=== PATIENT | female | born 1950 | race Caucasian/White ===

== ENCOUNTER 2019-10-10 13:11 | Emergency (ER) | payer MEDICARE, SELFPAY ==
[2019-10-10 13:19] VITALS: BP 144/49; PULSE 61; RESP 20; TEMP 36.4; O2SAT 98
--- NOTE | 2019-10-10 13:24 | ED.FEMALEGU ---
HPI - Female Genitourinary General Chief complaint: Urogenital-Female Stated complaint: UTI SYMPTOMS Time Seen by Provider: 10/10/19 13:24 Source: patient Mode of arrival: wheelchair Limitations: no limitations History of Present Illness HPI Narrative: The pt is a 68 y/o female who presents to the ED c/o UTI symptoms onset 2 weeks ago. Pt states that her urine has been cloudy with an orange color, and has been progressively worsening since onset of symptoms. She notes that she has not had a recent UTI or antibiotics for such. She reports burning urination and chronic lower back pain, but denies urgency, ABD pain, and N/V. MD elicited complaint: other (UTI symptoms) Onset (ago): week(s) (2) Urinary symptoms: Dysuria (Burning urination) Associated symptoms: back pain (Chronic lower) and other (Cloudy urine with an orange color) Related Data Home Medications Medication Instructions Recorded Confirmed Citrical +D 630 mg PO BID 10/10/19 ascorbic acid (vitamin C) [Vitamin 500 mg PO DAILY 10/10/19 C] aspirin [Adult Low Dose Aspirin] 81 mg PO DAILY 10/10/19 atorvastatin 20 mg PO HS 10/10/19 citalopram 20 mg PO DAILY 10/10/19 clonazepam 0.25 mg PO DAILY 10/10/19 dimenhydrinate 50 mg PO BID 10/10/19 gabapentin 100 mg PO TID 10/10/19 lamotrigine 100 mg PO BID 10/10/19 levothyroxine 100 mcg PO DAILY 10/10/19 multivit,dzqrrcv-wbr-gvzfr acd 200 mcg PO BID 10/10/19 [One-A-Day Proactive 65 Plus] oxycodone 7.5 mg PO TID 10/10/19 oxycodone [OxyContin] 15 mg PO Q12H 10/10/19 pregabalin [Lyrica] 150 mg PO TID 10/10/19 propranolol 20 mg PO QPM 10/10/19 topiramate 50 mg PO BID 10/10/19 Allergies Allergy/AdvReac Type Severity Reaction Status Date / Time cefaclor Allergy Mild Hives Verified 10/10/19 13:28 Penicillins Allergy Mild Rash Verified 10/10/19 13:28 Review of Systems Review of Systems: All systems reviewed & are unremarkable except as noted in HPI and below Gastrointestinal: Gastrointestinal: Denies abdominal pain, Denies nausea and Denies vomiting Genitourinary: Genitourinary: Reports dysuria (Burning urination), Denies urinary urgency and Reports other (Cloudy urine with an orange color) Musculoskeletal: Musculoskeletal: Reports back pain (Chronic lower) COUNT INCLUDES THE [facility] Past Medical History Medical History (Updated 10/10/19 @ 15:13 by Gwen Ybarra MD) Anxiety Arthritis Bipolar disorder Bunion Cataract Chronic back pain Chronic coccygeal pain Degenerative joint disease Depression HLD (hyperlipidemia) HTN (hypertension) Hypothyroidism IDDM (insulin dependent diabetes mellitus) Peripheral neuropathy Pneumonia Tremors of nervous system UTI (urinary tract infection) Surgical History Surgical History (Updated 10/10/19 @ 13:37 by Oscar Venegas) H/O adenoidectomy H/O Spinal surgery H/O: hysterectomy History of appendectomy History of bunionectomy Hx of tonsillectomy Social History Social History (Updated 10/10/19 @ 13:37 by Oscar Venegas) Smoking status: Former smoker Smoking end date: 09/30/16 Exam Narrative: Exam Narrative: GENERAL: Well-appearing, well-nourished, and in no acute distress. HEAD: Normocephalic, atraumatic EYES: PERRLA and EOMI, conjunctiva clear without discharge THROAT:Mucous membranes moist, Oropharynx normal without erythema, exudate, peritonsillar swelling or fluctuance NECK: Supple, without lymphadenopathy or mass RESPIRATORY: No respiratory distress, Airway patent, Respirations non-labored, Clear to auscultation without rales, rhonchi or wheeze HEART: Regular rate and rhythm. No murmur heard. Normal peripheral pulses. ABDOMEN: Soft, nontender, nondistended, normal active bowel sounds. No masses. No rebound or guarding, No organomegaly. EXTREMITIES: No edema, normal strength with full range of motion. SKIN: Warm, dry, normal color without rash NEURO: Alert and oriented x3. CN 2-12 grossly intact. No focal deficits. PSYCH: Normal mood and
[2019-10-10 14:31] LABS: Add Urine Microscopic? YES; Appearance Urine Cloudy (Clear); Bacteria Urine 3+ /hpf; Bilirubin Urine Negative (Negative); Blood Urine 2+ (Negative); Color Urine Yellow (Yellow); Glucose Urine UA Negative (Negative); Ketones Urine Trace mg/dL (Negative); Leukocyte Esterase Ur 2+ LEU/UL (Negative); Mucus Urine Rare /lpf; Nitrate Urine Negative (Negative); Protein Urine 1+ mg/dL (Negative); RBC Urine >75 /hpf (0-2); Specific Grav Ur 1.027 (1.001-1.035); Squamous Epithelial Cell Urine Rare /hpf (Few); Urobilinogen Urine Negative mg/dL (<2.0); WBC Urine >75 /hpf
[2019-10-10 15:35] VITALS: BP 132/80; PULSE 60; RESP 20; O2SAT 100
== END 2019-10-10 15:42 | disposition home or self-care (01) ==
PROVIDERS: Emergency Provider General Practice
DX: N39.0 Urinary tract infection, site not specified (principal); M19.90 Unspecified osteoarthritis, unspecified site; E78.5 Hyperlipidemia, unspecified; I10 Essential (primary) hypertension; E03.9 Hypothyroidism, unspecified; E11.42 Type 2 diabetes mellitus with diabetic polyneuropathy; Z87.891 Personal history of nicotine dependence; H26.9 Unspecified cataract; F41.9 Anxiety disorder, unspecified; F31.9 Bipolar disorder, unspecified
CPT/HCPCS: 81001; 87077; 87086; 87088; 87186; 99283

== ENCOUNTER → 2020-03-10 12:49 | Outpatient (CLI) | payer MEDICARE, SELFPAY ==
--- NOTE | ~2020-03-10 | CT_ITS ---
EXAMINATION:CT lung screening DATE: 03/10/2020 13:28 INDICATION: Personal history of tobacco dependence. Current smoker with 50 pack year history. TECHNIQUE: Computed tomography (CT) of the chest was performed without intravenous contrast. Automate d exposure control and iterative reconstruction technique were employed. The dose-length product (DLP ) was 123.37 mGy-cm. COMPARISON: Cervical spine CT 06/06/2010 FINDINGS: There is moderate emphysema. Calcified pulmonary nodules and calcified hilar and mediastina l lymph nodes are consistent with old granulomatous disease. There is a 2 mm nodule in right upper lo be. There is a 4 mm nodule in left upper lobe. There is a 4 mm nodule in left upper lobe. No pleural effusion. The heart size is normal. No pericardial effusion. There are epidural electrodes in the spi ne. There is mild thoracic spondylosis. IMPRESSION: 1. Lung-RADS category 2: Benign appearance or behavior. Continue annual screening with noncontrast lo w-dose chest CT in 12 months. Reviewed, dictated and finalized at location B. IMPRESSION: 1. Lung-RADS category 2: Benign appearance or behavior. Continue annual screeni ng with noncontrast low-dose chest CT in 12 months.
== END ==
PROVIDERS: Visit Provider Internal Medicine
DX: Z87.891 Personal history of nicotine dependence (principal)
CPT/HCPCS: G0297

== ENCOUNTER 2020-10-04 13:41 | Inpatient (IN) | payer MEDICARE, SELFPAY ==
[2020-10-04] VITALS (53 sets, daily range): BP systolic 117–172; BP diastolic 46–145; PULSE 61–91; RESP 10–189; TEMP 36.1–36.3; O2SAT 63–100; BMI 27.3
--- NOTE | ~2020-10-04 | XR_ITS ---
EXAMINATION: XR chest 2V EXAM DATE: 10/04/2020 14:39 INDICATION: Mid chest pain. TECHNIQUE: Frontal and lateral projections of the chest obtained and reviewed. Comparison is made to prior examination from . FINDINGS: Moderate chronic hyperinflation. The lungs are clear. There are no pleural effusions. Th e cardiomediastinal silhouette is within normal limits. There is no pneumothorax suspected. Mild domitila ny degenerative changes. Spine stimulator leads with tips at mid thoracic level. IMPRESSION: 1. No acute cardiopulmonary findings. 2. Hyperinflation. Reviewed, dictated and finalized at location B. ULAR OFFICER
--- NOTE | ~2020-10-04 | CT_ITS ---
EXAMINATION: CTA chest PE protocol DATE: 10/04/2020 17:39 FLAMER AFTER LASTING INDICATION: Shortness of breath. Elevated d-dimer. TECHNIQUE: Computed tomographic angiography (CTA) of the chest was performed with 100 mL Omnipaque-35 0 intravenous contrast. The dose-length product was 436.54 mGy-cm. Maximum intensity projection 3D-re constructions of the aorta and other arteries were constructed by the technologist on a separate work station. Automated exposure control and iterative reconstruction technique were employed. COMPARISON: CT dated 03/10/2020 FINDINGS: Heart size is normal. No thoracic lymphadenopathy. Study is technically adequate without ev idence for pulmonary embolism. There is attenuation of the pulmonary arteries in the right upper lobe due to emphysema. There is severe emphysema with upper lobe preference, right greater than left. No significant pleural or pericardial effusion. There is bibasilar dependent atelectasis. Stable 4 mm le ft upper lobe nodule, image 18. There is apical pleural thickening/scarring. No new pulmonary nodules or masses. There is mild thoracic spondylosis. IMPRESSION: 1. No evidence for pulmonary embolism. 2: Severe emphysema. Stable small pulmonary nodules, likely benign. Follow-up low dose CT chest in 12 months recommended. Reviewed, dictated and finalized at location A. ER AFTER LASTING IMPRESSION: 1. No evidence for pulmonary embolism. 2: Severe emphysema. Stable small pulmonary nodules, likely benign. Follow-up l ow dose CT chest in 12 months recommended.
--- NOTE | 2020-10-04 13:43 | ECG_ITS ---
Measurements Intervals [place] Rate: 86 P: 77 GA: 152 QRS: -11 QRSD: 90 T: 50 QT: 345 QTc: 413 Interpretive Statements SINUS RHYTHM POSSIBLE LEFT ATRIAL ENLARGEMENT BASELINE ARTIFACT- I, II, III, AVR, AVL BORDERLINE ECG Electronically Signed On 10-04-2020 13:56:25 TELECOMMUNICATION EQUIPMENT REPAIRER by Saad Coates D.O.
[2020-10-04 14:01] LABS: Basophils Percent Auto 0.2 % (0.2-1.2); Eosinophils Absolute Auto 0.8 K/mm3 (0-0.3); Eosinophils Percent Auto 8.3 % (0-4.4); Hematocrit 39.1 % (37.0-47.0); Hemoglobin 12.1 g/dL (12.0-15.0); Immature Granulocyte Absolute 0.05 K/mm3 (0.00-0.031); Immature Granulocyte Percent A 0.5 % (0-0.5); Lymphocytes Absolute Auto 0.94 K/mm3 (0.9-3.2); Lymphocytes Percent Auto 9.6 % (18.3-44.2); Mean Corpuscular HGB Conc 30.9 g/dl (32-36); Mean Corpuscular Hemoglobin 32.2 pg (26-34); Mean Platelet Volume 10.2 fl (7.4-10.4); Monocytes Absolute Auto 0.6 K/mm3 (0.1-0.6); Monocytes Percent Auto 6.2 % (2.6-8.5); Neutrophils Absolute Auto 7.3 K/mm3 (1.3-6.7); Neutrophils Percent Auto 75.2 % (45.5-73.1); Platelet Count Result 136 k/mm3 (150-375); Red Blood Count 3.76 M/mm3 (4.2-5.4); Red Cell Distribution Width 13.2 % (11.5-14.5); White Blood Count 9.8 K/mm3 (4.5-10.0)
[2020-10-04 14:10] LABS: Anion Gap 6 mmol/L (8-16); Blood Urea Nitrogen 21 mg/dL (7-17); Calcium 10.9 mg/dL (8.4-10.2); Carbon Dioxide 27 mmol/L (22-30); Chloride 108 mmol/L (98-107); Estimated CRCL calculation 44 ml/min; Estimated Glomerular Filt Rate 55; Glucose 167 mg/dL (65-105); Potassium 4.1 mmol/L (3.4-5.0); Sodium 141 mmol/L (137-145)
[2020-10-04 14:11] LABS: INR 0.9; Prothrombin Time 12.8 Seconds (11.1-14.7)
[2020-10-04 14:12] LABS: Partial Thromboplastin Time 30.2 SECONDS (22.3-36.8)
[2020-10-04 14:22] LABS: Troponin I < 0.012 ng/mL (0.000-0.034)
--- NOTE | 2020-10-04 14:22 | ED.CHESTPAIN ---
HPI - Chest Pain General Chief Complaint: Chest Pain Stated Complaint: sob Time Seen by Provider: 10/04/20 14:10 Source: patient Mode of arrival: ambulatory Limitations: no limitations History of Present Illness HPI narrative: Patient is a 69-year-old female complaining of left sided chest pain, sharp, 5 out of 10, nonradiating accompanied by shortness of breath that started yesterday. Denies any abdominal pain, nausea, vomiting, diaphoresis, fever or chills. Related Data Home Medications Medication Instructions Recorded Confirmed Citrical +D 630 mg PO BID 10/10/19 ascorbic acid (vitamin C) [Vitamin 500 mg PO DAILY 10/10/19 C] aspirin [Adult Low Dose Aspirin] 81 mg PO DAILY 10/10/19 atorvastatin 20 mg PO HS 10/10/19 citalopram 20 mg PO DAILY 10/10/19 gabapentin 100 mg PO TID 10/10/19 lamotrigine 100 mg PO BID 10/10/19 levothyroxine 100 mcg PO DAILY 10/10/19 multivit,miagtxj-lwc-hwchr acd 200 mcg PO BID 10/10/19 [One-A-Day Proactive 65 Plus] oxycodone [OxyContin] 15 mg PO Q12H 10/10/19 pregabalin [Lyrica] 150 mg PO TID 10/10/19 propranolol 20 mg PO QPM 10/10/19 topiramate 50 mg PO BID 10/10/19 oxycodone 10 mg PO Q8H 10/04/20 Allergies Allergy/AdvReac Type Severity Reaction Status Date / Time cefaclor Allergy Mild Hives Verified 10/04/20 14:26 Penicillins Allergy Mild Rash Verified 10/04/20 14:26 Review of Systems Review of Systems: All systems reviewed & are unremarkable except as noted in HPI and below Constitutional: Constitutional: Denies body ache(s), Denies chills, Denies excessive sweating, Denies fatigue, Denies fever(s), Denies headache(s), Denies lethargy, Denies malaise, Denies weakness and Denies weight loss Eyes: Eyes: Denies blurry vision, Denies change in vision and Denies loss of vision ENT: Denies dizziness, Denies ear discharge, Denies headache(s), Denies lip swelling, Denies epistaxis, Denies nasal congestion, Denies neck pain, Denies throat swelling and Denies tongue swelling Cardiovascular: Cardiovascular: Denies diaphoresis, Denies rapid heart rate, Denies edema, Denies irregular heart rhythm, Denies lightheadedness, Denies palpitations, Denies dyspnea and Denies dyspnea on exertion Respiratory: Respiratory: Denies chest congestion, Denies cough, Denies hemoptysis, Denies dyspnea and Denies dyspnea on exertion Gastrointestinal: Gastrointestinal: Denies abdominal pain, Denies melena, Denies hematochezia, Denies diarrhea, Denies nausea, Denies vomiting and Denies hematemesis Musculoskeletal: Musculoskeletal: Denies abnormal gait, Denies deformity, Denies joint swelling, Denies limited range of motion, Denies neck pain and Denies numbness Neurologic: Denies Abnormal speech present, Denies abnormal gait, Denies confusion, Denies dizziness, Denies headache(s), Denies focal weakness, Denies loss of vision, Denies numbness, Denies Other visual disturbances, Denies Sensory deficit (Neuro) and Denies weakness Psychiatric: Psychiatric: Denies confusion, Denies depression, Denies auditory hallucinations, Denies homicidal ideation and Denies suicidal ideation Endocrine: Endocrine: Denies cold intolerance, Denies excessive sweating, Denies fatigue, Denies heat intolerance and Denies palpitations Hematologic/Lymphatic: Hematologic/Lymphatic: Denies easy bleeding and Denies easy bruising Allergic/Immunologic: Allergic/Immunologic: Denies lip swelling, Denies throat swelling and Denies tongue swelling PMFSH Past Medical History Medical History Anxiety Arthritis Bipolar disorder Bunion Cataract Chronic back pain Chronic coccygeal pain Degenerative joint disease Depression HLD (hyperlipidemia) HTN (hypertension) Hypothyroidism IDDM (insulin dependent diabetes mellitus) Peripheral neuropathy Pneumonia Tremors of nervous system UTI (urinary tract infection) Surgical History Surgical History (Reviewed 10/04/20 @ 14:23 by Khadar Damian
[2020-10-04] MEDS: ASPIRIN 81 MG CHEWABLE TABLET 324 MG PO (14:50)
[2020-10-04 16:03] LABS: D Dimer 0.65 ug/mL (<0.48)
--- NOTE | 2020-10-04 16:10 | ECG_ITS ---
Measurements Intervals [place] Rate: 72 P: 85 NH: 168 QRS: -11 QRSD: 80 T: 49 QT: 348 QTc: 383 Interpretive Statements SINUS RHYTHM POSSIBLE LEFT ATRIAL ENLARGEMENT BASELINE ARTIFACT- I, II, AVR, AVL, AVF, V4-V6 BORDERLINE ECG Electronically Signed On 10-04-2020 16:33:28 FRONT OF HOUSE MANAGER by Saad Coates D.O.
[2020-10-04 16:16] LABS: NT Pro B Type Natriuretic Pept 327 PG/ML (5-100)
[2020-10-04] MEDS: DEXAMETHASONE SOD PHOS INJ 4 MG/ML VIAL 10 MG IV PUSH (16:50)
[2020-10-04] MEDS: ALBUTEROL SULFATE NEB 2.5 MG/0.5 ML INH 5 MG INHALATION (16:53)
[2020-10-04] MEDS: IPRATROPIUM BR 0.02% INH SOLN 0.5 MG/2.5 ML VIAL INHALATION (16:53)
[2020-10-04 17:27] LABS: Troponin I 0.017 ng/mL (0.000-0.034)
[2020-10-04 18:34] LABS: Alveolar/Arterial O2 Gradient 120.9 mmHg; Base Excess ABG -4.9 mEq/l (+/-2.0); Carboxyhemoglobin 0.6 % THb (0-2.0); Fractional Inspired Oxygen 36 %; HCO3 ABG 21.6 mEq/l (22.0-26.0); Methemoglobin ABG 0.2 %THb (0-1.5); Oxygen Content ABG 15.4 %vol (16.0-22.0); Oxygen Saturation ABG 94.9 % (95.0-100.0); Oxyhemoglobin 92.2 % THb (90.0-100.0); PO2 ABG 82.4 mmHg (80.0-100.0); PO2 FiO2 Ratio Arterial Blood 2.29 %; Total Hemoglobin 11.8 g/dL (12.0-18.0)
[2020-10-04 18:35] LABS: Device NASAL CANNULA; Site Drawn RIGHT BRACHIAL
[2020-10-04 20:27] LABS: Troponin I 0.016 ng/mL (0.000-0.034)
--- NOTE | 2020-10-04 21:55 | ADMGEN ---
This patient, Mirian Coe, was admitted to IMU Room 203-01. Patient/family oriented to hospital policies and general routines including ID bracelet, bed and alarms, visiting hours, pain management, procedures, bathroom and other care routines, personal items, smoking policy, room service/diet, and visiting hours. Information on how to activate the Rapid Response Team has been discussed. Patient/Family are encouraged to report perceived risks to care and to ask questions if they do not understand what they are told or what they should do.
--- NOTE | 2020-10-04 23:53 | PM.IMHP ---
H&P: HPI History of Present Illness Date/Time: 10/05/20 01:50 Chief Complaint: Chest pain Narrative: Mirian Coe is a 69 year old female with a past medical history chronic tobacco abuse, emphysema, chronic pain syndrome, hypertension, hypothyroidism, and bipolar disorder who presented to the ER with pain under her left breast and under left scapula. She reports that the pain was a rolling type sensation in started under her left scapula and rolled around to her anterior chest and to the right scapular area. She stated that the pain was not severe. She did not notice any eliciting or relieving factors. She reports that she had been having some shortness of breath for 3 days prior to coming to the ER. She denies any cough or congestion. She has noticed some increased wheezing. She denies any palpitations. She has not had any fevers or chills. She reports that she has intermittent constipation due to her narcotic use. Review of Systems Review of Systems: Narrative: 12 systems were reviewed with pertinent positives and negatives per HPI. Except as documented in the HPI, all other systems were reviewed and are negative. [facility] Past Medical History Medical History (Updated 10/05/20 @ 02:36 by Lou Arthur DO) Anxiety Arthritis Bipolar disorder Cataract Chronic back pain Chronic coccygeal pain Degenerative joint disease Depression Emphysema with chronic bronchitis Essential hypertension Hyperlipidemia Hypothyroidism Peripheral neuropathy Tremors of nervous system Type 2 diabetes mellitus UTI (urinary tract infection) Surgical History Surgical History (Updated 10/05/20 @ 00:10 by Lou Arthur DO) History of appendectomy History of bunionectomy History of spinal surgery History of tonsillectomy and adenoidectomy History of total hysterectomy with bilateral salpingo-oophorectomy (BSO) Family History Family History (Updated 10/05/20 @ 02:32 by Lou Arthur DO) Father , At age 90 Diabetes mellitus Kidney disease Mother , At age 80 Heart disease Social History Social History (Updated 10/05/20 @ 02:29 by Lou Arthur DO) Social History: She is and lives in her own home. She does not have any children. 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 She denies ever drinking alcohol. Primary care physician: Dr. Miguel Miranda Code status: Full code Smoking packs per day: 3 Smoking cigarettes per day: 60.0 Smoking status: Current some day smoker Tobacco type: cigarettes Smoking end date: 09/30/16 Additional smoking assessment comments: Smoke 3 packs per day up to 1999. Now states only smokes a little Alcohol intake: never Substance use: never Spiritual care concerns: No Meds Home Medications and Allergies Home Medications Medication Instructions Recorded Confirmed Type Citrical +D 630 mg PO BID 10/10/19 10/04/20 History ascorbic acid (vitamin C) [Vitamin 500 mg PO DAILY 10/10/19 10/04/20 History C] aspirin [Adult Low Dose Aspirin] 81 mg PO DAILY 10/10/19 10/04/20 History atorvastatin 20 mg PO HS 10/10/19 10/04/20 History citalopram 20 mg PO DAILY 10/10/19 10/04/20 History gabapentin 100 mg PO TID 10/10/19 10/04/20 History lamotrigine 100 mg PO BID 10/10/19 10/04/20 History levothyroxine 100 mcg PO DAILY 10/10/19 10/04/20 History oxycodone [OxyContin] 15 mg PO Q12H 10/10/19 10/04/20 History pregabalin [Lyrica] 150 mg PO TID 10/10/19 10/04/20 History propranolol 20 mg PO QPM 10/10/19 10/04/20 History topiramate 50 mg PO BID 10/10/19 10/04/20 History Adult One Daily Multivitamin 1 tab-cap PO BID 10/04/20 10/04/20 History oxycodone-acetaminophen 1 tablet PO TID 10/04/20 10/04/20 History Allergies Allergy/AdvReac Type Severity Reaction Status Date / Time cefaclor Allergy Mild Hives Verified 10/04/20 14:26 Penicillins Allergy Mild Rash Verified 10/04/20 14:26 Vital Signs Vital Signs - 24 hr 10/04/20
[2020-10-05] VITALS (20 sets, daily range): BP systolic 126–154; BP diastolic 59–92; PULSE 53–83; RESP 18–22; TEMP 36.1–37; O2SAT 91–98
[2020-10-05] MEDS: oxyCODONE HCL (*CRX) 10 MG TAB SR 12HR PO ×3 (00:11→18:46)
[2020-10-05] MEDS: PROPRANOLOL HCL 20 MG TABLET PO ×2 (00:11→17:00)
[2020-10-05] MEDS: TOPIRAMATE 25 MG TABLET 50 MG PO ×3 (00:11→18:46)
[2020-10-05] MEDS: ATORVASTATIN 20 MG TABLET PO ×2 (00:12→20:21)
[2020-10-05] MEDS: ALBUTEROL SULFATE NEB 2.5 MG/0.5 ML INH 5 MG INHALATION ×4 (01:52→20:29)
[2020-10-05] MEDS: IPRATROPIUM BR 0.02% INH SOLN 0.5 MG/2.5 ML VIAL INHALATION ×4 (01:53→20:29)
[2020-10-05] MEDS: GABAPENTIN 100 MG CAPSULE PO ×3 (02:12→16:58)
[2020-10-05] MEDS: PREGABALIN (*CRX) 75 MG CAPSULE 150 MG PO ×3 (02:13→17:00)
[2020-10-05] MEDS: oxyCODONE/ACETAMINOPHEN (*CRX) 5-325 MG TABLET 1 TABLET PO ×3 (02:13→17:01)
[2020-10-05] MEDS: oxyCODONE HCL (*CRX) 5 MG TAB IR PO ×2 (02:13→17:00)
[2020-10-05 05:03] LABS: Base Excess ABG -2.7 mEq/l (+/-2.0); Carboxyhemoglobin 0.3 % THb (0-2.0); Fractional Inspired Oxygen 32 %; HCO3 ABG 22.8 mEq/l (22.0-26.0); Methemoglobin ABG 0.3 %THb (0-1.5); Oxygen Content ABG 14.8 %vol (16.0-22.0); Oxygen Saturation ABG 95.1 % (95.0-100.0); Oxyhemoglobin 94.3 % THb (90.0-100.0); PCO2 ABG 42.4 mmHg (35.0-45.0); PO2 ABG 78.6 mmHg (80.0-100.0); PO2 FiO2 Ratio Arterial Blood 2.46 %; Reduced Hemoglobin 5.1 %THb (0-5.0); Total Hemoglobin 11.1 g/dL (12.0-18.0); pH ABG 7.349 (7.350-7.450)
[2020-10-05 05:05] LABS: Device NASAL CANNULA; Modified Allen's Test Pass; Site Drawn LEFT RADIAL
[2020-10-05] MEDS: methylPREDNISolone SOD SUCC 125 MG VIAL 60 MG IV PUSH ×2 (05:57→15:04)
[2020-10-05] MEDS: LEVOTHYROXINE SODIUM 100 MCG TABLET PO (05:57)
[2020-10-05] MEDS: ASCORBIC ACID 500 MG TABLET PO (08:41)
[2020-10-05] MEDS: ASPIRIN 81 MG ENTERIC TABLET PO (08:41)
[2020-10-05] MEDS: CITALOPRAM HYDROBROMIDE 20 MG TABLET PO (08:42)
[2020-10-05] MEDS: lamoTRIgine 100 MG TABLET PO ×2 (08:42→16:58)
[2020-10-05] MEDS: MULTIVITAMINS THERAPEUTIC TAB (*BKC) 1 TABLET PO ×2 (08:42→16:58)
[2020-10-05] MEDS: ENOXAPARIN 40 MG/0.4 ML SYRINGE SUB-Q (08:44)
--- NOTE | 2020-10-05 13:17 | PC.NURSE ---
This patient, Mirian Coe, was transferred to [[facility] ] on 10/05/20 at 1228. Personal belongings sent with patient. Report given to [Michaela ]. Appropriate documentation sent with patient.
--- NOTE | 2020-10-05 15:32 | PM.IMPN ---
Progress Note: A&P Assessment and Plan (1) Chest pain: Qualifiers: Chest pain type: unspecified Qualified Code(s): R07.9 - Chest pain, unspecified Code(s): R07.9 - Chest pain, unspecified Status: Acute Assessment and Plan: (2) Acute exacerbation of chronic obstructive pulmonary disease: Code(s): J44.1 - Chronic obstructive pulmonary disease with (acute) exacerbation Status: Acute (3) Acute on chronic respiratory acidosis: Code(s): E87.2 - Acidosis Status: Acute Assessment and Plan: (4) Acute respiratory failure with hypoxia and hypercapnia: Code(s): J96.01 - Acute respiratory failure with hypoxia; J96.02 - Acute respiratory failure with hypercapnia Status: Acute Assessment and Plan: Additional Plan # Atypical chest pain: EKG normal. tropoin negative. cxr negative. likely from copd exacerbation. this has now resovled. # Acute COPD exacerbation: on solumedrol. nebs. continue. will switch solumedrol to po prednisone # acute respiratory failure with hypoxia and hypercapnia: ABG with respiratory acidosis noted. repeat is improved. she remains on oxygen via NC currently. continue to taper and monitor. # Anxiety disorder/depression # chronic back pain/degenerative joint disease # hypertension # Hyperlipidemia # Hypothyroidsim # peripheral neuropathy # DVT proph:lvoenox # full code # diet: cardiac Subjective Date/time seen: 10/05/20 15:32 Interval history: no overnight events, feels well. she is on 2l oxgyen, improved from yesterday. she is sob one xertion but has improved today. no nausea, vomting or chest pain. Review of Systems Constitutional: Constitutional: Denies fatigue and Denies lethargy Eyes: Eyes: Denies blurry vision and Denies photophobia ENT: Denies nasal congestion and Denies nasal discharge Cardiovascular: Cardiovascular: Denies chest pain and Denies diaphoresis Respiratory: Respiratory: Reports cough, Reports dyspnea and Reports dyspnea on exertion Gastrointestinal: Gastrointestinal: Denies abdominal pain and Denies hematochezia Genitourinary: Genitourinary: Denies nocturia and Denies flank pain Musculoskeletal: Musculoskeletal: Denies back pain and Denies neck pain Integumentary/Breasts: Skin/Breast: Denies dry skin and Denies rash Neurologic: Denies Abnormal speech present and Denies abnormal gait Psychiatric: Psychiatric: Denies anxiety and Denies confusion Exam Narrative: Exam Narrative: PHYSICAL EXAM: General: No acute distress, well-developed well-nourished HEENT: Nasal cannula in place, pupils are equal and reactive, no scleral icterus, no conjunctival pallor, edentulous upper and lower jaw she usually wears dentures Respiratory: decreased air entry bialterally, no wheezes, no respiratory distress Cardiovascular: Regular rate, regular rhythm, no murmurs, 2+ bilateral radial pedal pulses Gastrointestinal: Soft, slightly distended, nontender, normoactive bowel sounds Skin: Generalized pallor, non jaundice Musculoskeletal: No clubbing, cyanosis or edema Neurological: Alert and oriented, speech is clear but very loud, cranial nerves 2-12 appear to be grossly intact, no localizing neurologic deficits noted on limited exam Psychiatric: Pleasant, pressured speech, impulsivity : Deferred Objective Data Vital Signs Vital Signs: Vital Signs - 24 hr 10/04/20 15:45 10/04/20 16:12 10/04/20 16:15 Temperature Pulse Rate 69 Respiratory Rate 12 Blood Pressure Pulse Oximetry 98 98 100 10/04/20 16:30 10/04/20 16:45 10/04/20 16:53 Temperature Pulse Rate 85 Respiratory Rate 20 Blood Pressure Pulse Oximetry 99 100 10/04/20 16:56 10/04/20 17:00 10/04/20 17:15 Temperature Pulse Rate 77 Respiratory Rate 18 Blood Pressure 142/78 H Pulse Oximetry 100 100 10/04/20 17:38 10/04/20 17:39 10/04/20 17:45 Temperature Pulse Rate 80 78 74 Respira
[2020-10-05] MEDS: predniSONE 20 MG TABLET 40 MG PO (17:05)
[2020-10-06] VITALS (7 sets, daily range): BP systolic 128–131; BP diastolic 69–73; PULSE 61–69; RESP 16–20; TEMP 36.2–37.1; O2SAT 91–97
[2020-10-06] MEDS: GABAPENTIN 100 MG CAPSULE PO ×2 (00:42→09:29)
[2020-10-06] MEDS: PREGABALIN (*CRX) 75 MG CAPSULE 150 MG PO ×2 (00:45→09:27)
[2020-10-06] MEDS: ALBUTEROL SULFATE NEB 2.5 MG/0.5 ML INH 5 MG INHALATION ×2 (02:27→07:57)
[2020-10-06] MEDS: IPRATROPIUM BR 0.02% INH SOLN 0.5 MG/2.5 ML VIAL INHALATION ×2 (02:28→07:57)
[2020-10-06] MEDS: LEVOTHYROXINE SODIUM 100 MCG TABLET PO (07:42)
[2020-10-06] MEDS: oxyCODONE HCL (*CRX) 10 MG TAB SR 12HR PO (07:42)
[2020-10-06] MEDS: TOPIRAMATE 25 MG TABLET 50 MG PO (07:42)
[2020-10-06] MEDS: oxyCODONE HCL (*CRX) 5 MG TAB IR PO (09:27)
[2020-10-06] MEDS: oxyCODONE/ACETAMINOPHEN (*CRX) 5-325 MG TABLET 1 TABLET PO (09:28)
[2020-10-06] MEDS: predniSONE 20 MG TABLET 40 MG PO (09:28)
[2020-10-06] MEDS: lamoTRIgine 100 MG TABLET PO (09:29)
[2020-10-06] MEDS: MULTIVITAMINS THERAPEUTIC TAB (*BKC) 1 TABLET PO (09:29)
[2020-10-06] MEDS: CITALOPRAM HYDROBROMIDE 20 MG TABLET PO (09:29)
[2020-10-06] MEDS: ENOXAPARIN 40 MG/0.4 ML SYRINGE SUB-Q (09:29)
[2020-10-06] MEDS: ASPIRIN 81 MG ENTERIC TABLET PO (09:30)
[2020-10-06] MEDS: ASCORBIC ACID 500 MG TABLET PO (09:31)
--- NOTE | 2020-10-06 11:48 | PM.DS ---
DS: Admitting Diagnosis Admitting Diagnosis Admitting Diagnosis: 1. Atypical chest pain 2. Acute exacerbation of COPD DS: Discharge Diagnosis Discharge Diagnosis (1) Chest pain: Qualifiers: Chest pain type: unspecified Qualified Code(s): R07.9 - Chest pain, unspecified Code(s): R07.9 - Chest pain, unspecified Status: Acute Assessment and Plan: (2) Acute exacerbation of chronic obstructive pulmonary disease: Code(s): J44.1 - Chronic obstructive pulmonary disease with (acute) exacerbation Status: Acute (3) Acute on chronic respiratory acidosis: Code(s): E87.2 - Acidosis Status: Acute Assessment and Plan: (4) Acute respiratory failure with hypoxia and hypercapnia: Code(s): J96.01 - Acute respiratory failure with hypoxia; J96.02 - Acute respiratory failure with hypercapnia Status: Acute Assessment and Plan: DS: Summary Hospital Course Reason for hospitalization: Acute exacerbation of COPD Hospital Course: 69 years old female admitted complained the having atypical chest pain acute exacerbation of COPD. Patient was given nebulizer treatment and oxygen. Patient CT of the chest was negative. Today patient is feeling better so patient discharged home stable condition. Time spent discussing smoking cessation with patient: 3 to 10 minutes Status at Discharge Cognitive/behavioral status at discharge: Stable Functional status at discharge: independent ambulation Overall status at discharge: patient is back to baseline Time Spent with Patient Time attestation: Total time spent providing and/or coordinating discharge services: Time spent: Less than 30 minutes Exam Narrative: Exam Narrative: PHYSICAL EXAM: General: No acute distress, well-developed well-nourished HEENT: Nasal cannula in place, pupils are equal and reactive, no scleral icterus, no conjunctival pallor, edentulous upper and lower jaw she usually wears dentures Respiratory: decreased air entry bialterally, no wheezes, no respiratory distress Cardiovascular: Regular rate, regular rhythm, no murmurs, 2+ bilateral radial pedal pulses Gastrointestinal: Soft, slightly distended, nontender, normoactive bowel sounds Skin: Generalized pallor, non jaundice Musculoskeletal: No clubbing, cyanosis or edema Neurological: Alert and oriented, speech is clear but very loud, cranial nerves 2-12 appear to be grossly intact, no localizing neurologic deficits noted on limited exam Psychiatric: Pleasant, pressured speech, impulsivity : Deferred Const: General: No confusion Orientation/consciousness: No confusion Eyes: Direct Ophthalmoscopy: No photophobia Neuro: General: No confusion Speech: No Abnormal speech present Discharge Plan Discharge Attending physician on discharge: Srinivasan Vickers Discharging Clinician: Srinivasan Vickers Anticipated Discharge Date/Time: 10/06/20 11:42 Patient Disposition: Home, Self-Care Activity: as tolerated Diet: as tolerated and regular Patient Instructions: Antibiotic Form, How to Stop Smoking (DC) Stand Alone Forms: General Discharge Information Follow-up/Referrals: Ruben,Miguel Purdy MD [Primary Care Provider] - Discharge Medications: New prednisone 10 mg tablet 10 mg PO DAILY Qty: 7 RF: 0 ciprofloxacin HCl [Cipro] 250 mg tablet 250 mg PO Q12H Qty: 14 RF: 0 Continued atorvastatin 20 mg Tablet 20 mg PO HS RF: 0 topiramate 25 mg Tablet 50 mg PO BID RF: 0 aspirin [Adult Low Dose Aspirin] 81 mg Tablet,Delayed Release (Dr/Ec) 81 mg PO DAILY RF: 0 levothyroxine 100 mcg Tablet 100 mcg PO DAILY RF: 0 citalopram 20 mg Tablet 20 mg PO DAILY RF: 0 ascorbic acid (vitamin C) [Vitamin C] 500 mg Tablet 500 mg PO DAILY RF: 0 gabapentin 100 mg capsule 100 mg PO TID RF: 0 propranolol 20 mg Tablet 20 mg PO QPM RF: 0 lamotrigine 100 mg Tablet 100 mg PO BID
--- NOTE | 2020-10-06 13:44 | PCRCNOTE ---
PT. DOES NOT WANT A BREATHING TX; SHE IS BEING DISCHARGED.
== END 2020-10-06 16:38 | disposition home or self-care (01) | DRG 190 ==
LOC: ANHED 18:27 → ANHIMU 21:12 → ANH3MEDSUR 10-05 15:19 → ANHIMU 10-10 12:17
PROVIDERS: Emergency Medicine; Internal Medicine; Admitting Provider Family Medicine; Emergency Provider Emergency Medicine; PCP Internal Medicine; Visit Provider Internal Medicine
DX: J43.9 Emphysema, unspecified (principal); J96.01 Acute respiratory failure with hypoxia; J96.02 Acute respiratory failure with hypercapnia; E87.2 Acidosis; F31.9 Bipolar disorder, unspecified; M19.90 Unspecified osteoarthritis, unspecified site; I10 Essential (primary) hypertension; E11.42 Type 2 diabetes mellitus with diabetic polyneuropathy; E03.9 Hypothyroidism, unspecified; E78.5 Hyperlipidemia, unspecified; F41.9 Anxiety disorder, unspecified; G89.4 Chronic pain syndrome; F17.210 Nicotine dependence, cigarettes, uncomplicated; Z90.49 Acquired absence of other specified parts of digestive tract; Z90.710 Acquired absence of both cervix and uterus; Z90.722 Acquired absence of ovaries, bilateral
CPT/HCPCS: 36415; 36600; 71046; 71275; 80048; 82375; 82805; 83050; 83880; 84484; 85025; 85380; 85610; 85730; 93005; 94640; 96372; 96374; 96375; 99285; A9270; G0378; J1100; J1650; J2930; J7512; Q9967

== ENCOUNTER 2022-05-17 09:29 | Emergency (ER) | payer MEDICARE, SELFPAY ==
--- NOTE | ~2022-05-17 | XR_ITS ---
EXAMINATION: XR foot RT min 3V DATE: 05/17/2022 11:08 INDICATION: Stubbed right great toe TECHNIQUE: Dorsoplantar, two oblique and lateral views of the right foot were obtained. COMPARISON: None. FINDINGS: Postoperative change of prior bunionectomy and old healed realignment osteotomy at the neck of the fi rst metatarsal. Alignment appears near-anatomic. No fractures identified. Moderate-sized Achilles marta caneal spur. Mild polyarticular osteoarthritis at the first metatarsophalangeal and a few tarsometata rsal and interphalangeal joints. IMPRESSION: 1. No acute osseous abnormality. 2. Expected appearance post chronic bunionectomy and first metatarsal realignment osteotomy for hallu x valgus correction. Reviewed, dictated and finalized at location A. IMPRESSION: 1. No acute osseous abnormality. 2. Expected appearance post chronic bunionectomy and first metatarsal realignme nt osteotomy for hallux valgus correction.
[2022-05-17 10:24] VITALS: BP 116/50; PULSE 56; RESP 20; TEMP 37; O2SAT 95
--- NOTE | 2022-05-17 11:35 | ED.LOWEXIN ---
HPI - Extremity Injury (Lower) General Chief Complaint: Extremity Injury, Lower Stated Complaint: Stubbed R. big toe Time Seen by Provider: 05/17/22 10:46 History of Present Illness HPI Narrative: 71-year-old female presents emergency room for evaluation of a right great toe injury. Patient states that she stubbed her toe couple days ago and the toenail broke off. Patient presents concerned that the wound is not healing properly . Related Data Home Medications Medication Instructions Recorded Confirmed Citrical +D 630 mg PO BID 10/10/19 10/04/20 ascorbic acid (vitamin C) 500 mg 500 mg PO DAILY 10/10/19 10/04/20 tablet (Vitamin C) aspirin 81 mg tablet,delayed 81 mg PO DAILY 10/10/19 10/04/20 release (Adult Low Dose Aspirin) atorvastatin 20 mg tablet 20 mg PO HS 10/10/19 10/04/20 citalopram 20 mg tablet 20 mg PO DAILY 10/10/19 10/04/20 gabapentin 100 mg capsule 100 mg PO TID 10/10/19 10/04/20 lamotrigine 100 mg tablet 100 mg PO BID 10/10/19 10/04/20 levothyroxine 100 mcg tablet 100 mcg PO DAILY 10/10/19 10/04/20 pregabalin 150 mg capsule (Lyrica) 150 mg PO TID 10/10/19 10/04/20 propranolol 20 mg tablet 20 mg PO QPM 10/10/19 10/04/20 topiramate 25 mg tablet 50 mg PO BID 10/10/19 10/04/20 Adult One Daily Multivitamin 1 tab-cap PO BID 10/04/20 10/04/20 oxycodone-acetaminophen 10 mg-325 1 tablet PO TID 10/04/20 10/04/20 mg tablet Allergies Allergy/AdvReac Type Severity Reaction Status Date / Time cefaclor Allergy Mild Hives Verified 05/17/22 11:12 Penicillins Allergy Mild Rash Verified 05/17/22 11:12 Review of Systems Review of Systems: CONSTITUTIONAL: Denies fever, chills, or sweats. EYES: Denies visual changes, redness, or discharge. ENT: Denies rhinorrhea, congestion, sore throat, or otalgia. CARDIOVASCULAR: Denies chest pain, palpitations, or edema. RESPIRATORY: Denies cough or dyspnea. GASTROINTESTINAL: Denies abdominal pain, nausea, vomiting, or diarrhea. GENITOURINARY: Denies dysuria or hematuria. SKIN: Denies rash or itching. MUSCULOSKELETAL: Reports right great toe pain NEUROLOGIC: Denies headache, numbness, dizziness, or weakness. PSYCHIATRIC: Denies anxiety or depression. [facility] Past Medical History Medical History Anxiety Arthritis Bipolar disorder Cataract Chronic back pain Chronic coccygeal pain Degenerative joint disease Depression Emphysema with chronic bronchitis Essential hypertension Hyperlipidemia Hypothyroidism Peripheral neuropathy Tremors of nervous system Type 2 diabetes mellitus UTI (urinary tract infection) Surgical History Surgical History History of appendectomy History of bunionectomy History of spinal surgery History of tonsillectomy and adenoidectomy History of total hysterectomy with bilateral salpingo-oophorectomy (BSO) Family History Family History Father , At age 90 Diabetes mellitus Kidney disease Mother , At age 80 Heart disease Social History Social History Social History: She is and lives in her own home. She does not have any children. 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 She denies ever drinking alcohol. Primary care physician: Dr. Miguel Miranda Code status: Full code Smoking packs per day: 3 Smoking cigarettes per day: 60.0 Smoking status: Current some day smoker Tobacco type: cigarettes Smoking end date: 09/30/16 Additional smoking assessment comments: Smoke 3 packs per day up to 1999. Now states only smokes a little Alcohol intake: never Substance use: never Spiritual care concerns: No Exam Narrative: GENERAL: Well-appearing, well-nourished, no physical limitations, and in no acute distress. HEAD: Normocephalic, atraumatic. EYES: Conjunctivae nor
[2022-05-17 11:57] VITALS: BP 101/44; PULSE 55; RESP 16; O2SAT 90
== END 2022-05-17 12:18 | disposition home or self-care (01) ==
PROVIDERS: Emergency Provider Nurse Practitioner Family; PCP Internal Medicine
DX: S91.201A Unspecified open wound of right great toe with damage to nail, initial encounter (principal); S90.111A Contusion of right great toe without damage to nail, initial encounter; J43.9 Emphysema, unspecified; I10 Essential (primary) hypertension; E78.5 Hyperlipidemia, unspecified; E11.42 Type 2 diabetes mellitus with diabetic polyneuropathy; M19.90 Unspecified osteoarthritis, unspecified site; Z87.440 Personal history of urinary (tract) infections; Z90.710 Acquired absence of both cervix and uterus; Z90.722 Acquired absence of ovaries, bilateral; Z90.79 Acquired absence of other genital organ(s); Z79.82 Long term (current) use of aspirin; W22.8XXA Striking against or struck by other objects, initial encounter
CPT/HCPCS: 73630; 99283

== ENCOUNTER 2022-11-30 14:41 | Inpatient (IN) | payer MEDICARE, SELFPAY ==
--- NOTE | ~2022-11-30 | CT_ITS ---
EXAMINATION: CT abdomen pelvis w con DATE: 11/30/2022 17:50 INDICATION: low abdominal pain, AMS TECHNIQUE: Computed tomography (CT) of the abdomen and pelvis was performed with 100 mL Omnipaque-350 intravenous contrast. Automated exposure control and iterative reconstruction technique were employe d. The dose-length product was 392.79 mGy-cm. COMPARISON: [facility] 10/04/2020. FINDINGS: Lower thorax: Unremarkable Liver: Normal. Biliary/Gallbladder: Gallbladder is normal. Stable mild intrapelvic bile duct dilation. Pancreas: No mass or duct dilation. Spleen: Calcified granulomas. Adrenals:No mass. Kidneys: Bilateral simple cysts, cortical scarring, and cortical thinning, with mid and lower left re nal pole nonobstructing calculi. GI tract: Distal esophageal and gastric wall edema. No small bowel dilation. The rectum is dilated to 8.6 cm by formed stool, without surrounding inflammatory change. Appendix not visualized, possibly s urgically absent. Mesentery/Peritoneum: No ascites, mass, or free air. Retroperitoneum: No mass. Atherosclerotic abdominal aortic and/or arterial calcifications. Pelvis: Partially empty urinary bladder, with mild wall thickening. Uterus not visualized, likely cain gically absent.. Soft Tissues: Left posterior stimulator pack with leads terminating in the thoracic spinal canal, out of the [id number]. Bones: No acute osseous finding. IMPRESSION: Esophagitis/gastritis. Fecal impaction. No CT evidence of stercoral colitis. Mild urinary bladder wal l thickening which may be secondary to incomplete distention or cystitis. Reviewed, dictated and finalized at location K. IMPRESSION: Esophagitis/gastritis. Fecal impaction. No CT evidence of stercoral colitis. Mi ld urinary bladder wall thickening which may be secondary to incomplete distent ion or cystitis.
--- NOTE | ~2022-11-30 | XR_ITS ---
EXAMINATION: XR chest 1V portable Exam Date/Time: 11/30/2022 17:45 CDT HISTORY: AMS Comparison: 10/04/2020. RESULT: Lines, tubes, and devices: Stimulator leads project over the thoracic spine. Lungs and pleura: Rightward rotation. Senescent/emphysematous changes. Calcified right upper lung gr anuloma. Cardiomediastinal silhouette: Stable. Prominent central pulmonary arteries as can be seen with pulmo nary arterial hypertension. Calcified hilar nodes. Other: No acute osseous or upper abdominal finding. IMPRESSION: No acute cardiopulmonary process. Reviewed, dictated and finalized at location K.
--- NOTE | ~2022-11-30 | CT_ITS ---
EXAMINATION: CT brain wo con DATE: 11/30/2022 17:49 INDICATION: ams . TECHNIQUE: Computed tomography (CT) of the head was performed without intravenous contrast. The mA wa s adjusted according to patient size. Iterative reconstruction technique was employed. The dose-lengt h product was 681.00 mGy-cm. COMPARISON: 06/06/2010. FINDINGS: No acute intracranial hemorrhage or extra-axial fluid collection. No hydrocephalus, mass, or herniation. No acute ischemic infarct. Unremarkable dural venous sinus attenuation. No acute osseous abnormality. The aerated spaces are clear. Mild atrophy and chronic white matter change. Atherosclerotic intracranial calcification. Bilateral l ens replacements. IMPRESSION: No acute intracranial process. Reviewed, dictated and finalized at location K.
--- NOTE | ~2022-11-30 | US_ITS ---
EXAMINATION: US carotid duplex BI DATE: 12/01/2022 09:12 INDICATION: Altered mental status. Confusion. TECHNIQUE: Grayscale, color Doppler, and pulsed Doppler images of the cervical carotid arteries were obtained. The degree of vessel stenosis is placed in one of the following categories: normal, <50%, 5 0-69%, >=70% but less than near-occlusion, near-occlusion, or total occlusion. Note that percent sten osis relative to normal distal artery lumen diameter is indirectly measured from velocity measurement s as described by Wali, et al. Radiology 2003; [id number]. COMPARISON: None. FINDINGS: RIGHT: The right common carotid artery (CCA) peak systolic velocity (PSV) is 108 cm/s. The right internal ca rotid artery (ICA) PSV is 64 cm/s. The right ICA end-diastolic velocity (EDV) is 17 cm/s. The right I CA/CCA PSV ratio is 0.6. Grayscale and color Doppler images yield an estimate of <50% diameter reduct ion from plaque in the ICA. There is antegrade flow in the right vertebral artery. LEFT: The left CCA PSV is 86 cm/s. The left ICA PSV is 73 cm/s. The left ICA EDV is 23 cm/s. The left ICA/C CA PSV ratio is 0.8. Grayscale and color Doppler images yield an estimate of <50% diameter reduction from plaque in the ICA. There is antegrade flow in the left vertebral artery. IMPRESSION: 1. <50% stenosis in the right internal carotid artery. 2. <50% stenosis in the left internal carotid artery. Reviewed, dictated and finalized at location A.
--- NOTE | ~2022-11-30 | CT_ITS ---
EXAMINATION: CTA brain carotid DATE: 12/02/2022 19:26 INDICATION: Altered mental status. TECHNIQUE: Computed tomographic angiography (CTA) of the head was performed without and with 100 mL O mnipaque-350 intravenous contrast. CTA of the neck was performed with intravenous contrast. Automated exposure control and iterative reconstruction technique were employed. The dose-length product was 1 864.89 mGy-cm. Maximum intensity projection and volume rendered 3D-reconstructions were created by rae carver technologist on a separate workstation. COMPARISON: Head CT 11/30/2022 FINDINGS: HEAD CTA: There is no intracranial hemorrhage, acute infarction, or abnormal intracranial mass lesion . The ventricles are normal in size. There are likely changes of ocular lens replacement surgeries. T he paranasal sinuses are clear. The mastoid air cells are normal. Right vertebral artery is dominant. There is no significant stenosis of basilar artery or the posterior cerebral arteries. Posterior com municating arteries are not identified. There is no significant stenosis of the intracranial internal carotid arteries or anterior or middle cerebral arteries. Anterior communicating artery is normal. T here is no aneurysm. NECK CTA: There is moderate emphysema. There are no pathologically enlarged lymph nodes. There is no significant stenosis of the vertebral arteries. There is plaque in the proximal internal carotid nathalia cyn. There is 0% stenosis of the proximal right internal carotid artery relative to normal distal ar ron lumen diameter (NASCET criteria). There is 0% stenosis of the proximal left internal carotid art sridhar relative to normal distal artery lumen diameter. There is mild cervical spondylosis. IMPRESSION: 1. Normal brain. 2. No aneurysm or significant intracranial arterial stenosis. 3. 0% stenosis of the proximal internal carotid arteries relative to normal distal artery lumen diame ters (NASCET criteria). 4. Moderate emphysema. Reviewed, dictated and finalized at location A. IMPRESSION: 1. Normal brain. 2. No aneurysm or significant intracranial arterial stenosis. 3. 0% stenosis of the proximal internal carotid arteries relative to normal dis ava artery lumen diameters (NASCET criteria). 4. Moderate emphysema.
--- NOTE | 2022-11-30 14:50 | ECG_ITS ---
Measurements Intervals [place] Rate: 60 P: IA: 0 QRS: 269 QRSD: 147 T: 260 QT: 456 QTc: 456 Interpretive Statements SINUS RHYTHM INCOMPLETE RIGHT BUNDLE BRANCH BLOCK INTRAVENTRICULAR CONDUCTION DELAY [130+ ms QRS DURATION] CONSIDER INFERIOR INFARCT, AGE INDETERMINATE ST-T WAVE ABNORMALITY IN ANTEROLATERAL LEADS- CONSIDER ISCHEMIA BASELINE ARTIFACT- I, II, III, AVR, AVL, AVF, V1-V6 ABNORMAL ECG COMPARED TO ECG 10/04/2020 14:47:38 ST-T WAVE ABNORMALITY NOW PRESENT Electronically Signed On 11-30-2022 16:16:40 CDT by Saad Coates D.O.
--- NOTE | 2022-11-30 14:52 | ED.AMS ---
HPI - Altered Mental Status General Chief Complaint: Altered Mental Status Stated Complaint: AMS Time Seen by Provider: 11/30/22 14:49 History of Present Illness HPI narrative: 72-year-old female presented to the emergency department for evaluation of altered mental status. Patient is normally ANO x4 and takes care of himself. Family members and friends had not heard the patient in approximately 1 week. During a wellness check patient was found to be minimally responsive and was found lying on the floor. Unknown downtime. Patient was normoglycemic and not hypotensive upon arrival to the ED. Related Data Home Medications Medication Instructions Recorded Confirmed Citrical +D 630 mg PO BID 10/10/19 10/04/20 ascorbic acid (vitamin C) 500 mg 500 mg PO DAILY 10/10/19 10/04/20 tablet (Vitamin C) aspirin 81 mg tablet,delayed 81 mg PO DAILY 10/10/19 10/04/20 release (Adult Low Dose Aspirin) atorvastatin 20 mg tablet 20 mg PO HS 10/10/19 10/04/20 citalopram 20 mg tablet 20 mg PO DAILY 10/10/19 11/30/22 gabapentin 100 mg capsule 100 mg PO TID 10/10/19 10/04/20 lamotrigine 100 mg tablet 100 mg PO BID 10/10/19 10/04/20 levothyroxine 100 mcg tablet 100 mcg PO DAILY 10/10/19 10/04/20 pregabalin 150 mg capsule (Lyrica) 150 mg PO TID 10/10/19 10/04/20 propranolol 20 mg tablet 20 mg PO QPM 10/10/19 10/04/20 topiramate 25 mg tablet 50 mg PO BID 10/10/19 10/04/20 Adult One Daily Multivitamin 1 tab-cap PO BID 10/04/20 10/04/20 oxycodone-acetaminophen 10 mg-325 1 tablet PO TID 10/04/20 10/04/20 mg tablet Allergies Allergy/AdvReac Type Severity Reaction Status Date / Time cefaclor Allergy Mild Hives Verified 05/17/22 11:12 Penicillins Allergy Mild Rash Verified 05/17/22 11:12 Review of Systems Review of Systems: All systems reviewed & are unremarkable except as noted in HPI and below PMFSH Past Medical History Medical History Anxiety Arthritis Bipolar disorder Cataract Chronic back pain Chronic coccygeal pain Degenerative joint disease Depression Emphysema with chronic bronchitis Essential hypertension Hyperlipidemia Hypothyroidism Peripheral neuropathy Tremors of nervous system Type 2 diabetes mellitus UTI (urinary tract infection) Surgical History Surgical History History of appendectomy History of bunionectomy History of spinal surgery History of tonsillectomy and adenoidectomy History of total hysterectomy with bilateral salpingo-oophorectomy (BSO) Family History Family History Father , At age 90 Diabetes mellitus Kidney disease Mother , At age 80 Heart disease Social History Social History Social History: She is and lives in her own home. She does not have any children. 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 She denies ever drinking alcohol. Primary care physician: Dr. Miguel Miranda Code status: Full code Smoking packs per day: 3 Smoking cigarettes per day: 60.0 Smoking status: Current some day smoker Tobacco type: cigarettes Smoking end date: 09/30/16 Additional smoking assessment comments: Smoke 3 packs per day up to 1999. Now states only smokes a little Alcohol intake: never Substance use: never Spiritual care concerns: No Exam Narrative: APPEARANCE: Ill-appearing HEAD: normocephalic, atraumatic. EYES: PERRLA/EOMI, conjunctivae clear. NOSE: Normal no drainage EARS:TMS clear with good light reflex. THROAT: Pharynx clear, no exudate. NECK: Supple. No adenopathy, no masses. RESPIRATORY: Airway patent, respirations nonlabored. Clear to auscultation bilaterally, no rales, rhonchi, wheezing. CARDIOVASCULAR: Regular rate and rhythm without murmurs rubs or gallops. ABDOMINAL: Soft, lower abdominal ten
[2022-11-30 15:00] VITALS: BP 125/98; PULSE 87; RESP 16; TEMP 36.4; O2SAT 95
[2022-11-30 15:15] LABS: Alveolar/Arterial O2 Gradient 35.8 mmHg; Base Excess ABG -0.9 mEq/l (+/-2.0); Fractional Inspired Oxygen 21 %; HCO3 ABG 20.4 mEq/l (22.0-26.0); Oxygen Content ABG 21.6 %vol (16.0-22.0); Oxygen Saturation ABG 97.1 % (95.0-100.0); Oxyhemoglobin 94.8 % THb (90.0-100.0); PCO2 ABG 26.5 mmHg (35.0-45.0); PO2 ABG 82.2 mmHg (80.0-100.0); PO2 FiO2 Ratio Arterial Blood 3.91 %; Total Hemoglobin 16.2 g/dL (12.0-18.0)
[2022-11-30 15:17] LABS: Site Drawn RIGHT BRACHIAL; pH ABG 7.504 (7.350-7.450)
[2022-11-30] MEDS: SODIUM CHLORIDE 0.9% IV 1,000 ML 999 ML IV CONT (16:50)
[2022-11-30 17:02] LABS: Basophils Percent Auto 0.2 % (0.2-1.2); Hematocrit 50.6 % (37.0-47.0); Hemoglobin 16.5 g/dL (12.0-15.0); Immature Granulocyte Absolute 0.07 K/mm3 (0.00-0.031); Immature Granulocyte Percent A 0.5 % (0-0.5); Lymphocytes Absolute Auto 1.51 K/mm3 (0.9-3.2); Lymphocytes Percent Auto 9.9 % (18.3-44.2); Mean Corpuscular HGB Conc 32.6 g/dl (32-36); Mean Corpuscular Volume 98.1 fl (80-100); Mean Platelet Volume 10.1 fl (7.4-10.4); Monocytes Absolute Auto 1.1 K/mm3 (0.1-0.6); Monocytes Percent Auto 6.9 % (2.6-8.5); Neutrophils Absolute Auto 12.6 K/mm3 (1.3-6.7); Neutrophils Percent Auto 82.5 % (45.5-73.1); Platelet Count Result 242 k/mm3 (150-375); Red Blood Count 5.16 M/mm3 (4.2-5.4); Red Cell Distribution Width 13.7 % (11.5-14.5); White Blood Count 15.3 K/mm3 (4.5-10.0)
[2022-11-30 17:15] LABS: Ammonia < 9 umol/L (9-30); Creatine Kinase 291 U/L (30-135)
[2022-11-30 17:17] LABS: Alanine Aminotransferase 29 U/L (6-35); Albumin Level 4.5 g/dL (3.5-5.1); Alkaline Phosphatase 112 U/L (38-126); Anion Gap 9 mmol/L (8-16); Aspartate Amino Transferase 63 U/L (14-36); Bilirubin,Total 1.1 mg/dL (0.2-1.3); Blood Urea Nitrogen 31 mg/dL (7-17); Calcium 11.9 mg/dL (8.4-10.2); Carbon Dioxide 30 mmol/L (22-30); Chloride 107 mmol/L (98-107); Estimated Glomerular Filt Rate > 60; Glucose 164 mg/dL (65-110); Potassium 3.5 mmol/L (3.4-5.0); Sodium 146 mmol/L (137-145)
[2022-11-30 17:18] LABS: Lactic Acid Reflex 2.2 mmol/L (0.7-2.0)
[2022-11-30 17:19] LABS: CRP 1.2 mg/dL (<1.0)
[2022-11-30 17:20] LABS: Prothrombin Time 13.5 Seconds (11.1-14.7)
[2022-11-30 17:21] LABS: Partial Thromboplastin Time 23.6 SECONDS (22.3-36.8)
[2022-11-30 17:24] LABS: Appearance Urine Cloudy (Clear); Bacteria Urine 4+ /hpf; Bilirubin Urine Negative (Negative); Blood Urine 2+ (Negative); Color Urine Dark Yellow (Yellow); Glucose Urine UA Negative (Negative); Ketones Urine 2+ mg/dL (Negative); Leukocyte Esterase Ur Negative LEU/UL (Negative); Nitrate Urine Positive (Negative); Protein Urine 3+ mg/dL (Negative); Specific Grav Ur 1.022 (1.001-1.035); Squamous Epithelial Cell Urine None seen /hpf (Few); WBC Urine 0-5 /hpf
[2022-11-30 17:28] LABS: Add Urine Microscopic? YES
[2022-11-30 17:30] VITALS: BP 127/77; PULSE 86; RESP 16; O2SAT 100
[2022-11-30 17:32] LABS: Erythrocyte Sedimentation Rate 1 mm/hr (0-20)
[2022-11-30 17:48] LABS: Procalcitonin 0.3 ng/mL
[2022-11-30 18:00] VITALS: BP 117/72; PULSE 69; RESP 18; O2SAT 100
[2022-11-30 19:33] VITALS: BP 128/77; PULSE 87; RESP 17; O2SAT 100
--- NOTE | 2022-11-30 19:58 | ADMGEN ---
This patient, Mirian Coe, was admitted to Medical Room 345-. Patient/family oriented to hospital policies and general routines including ID bracelet, bed and alarms, visiting hours, pain management, procedures, bathroom and other care routines, personal items, smoking policy, room service/diet, and visiting hours. Information on how to activate the Rapid Response Team has been discussed. Patient/Family are encouraged to report perceived risks to care and to ask questions if they do not understand what they are told or what they should do.
[2022-11-30 20:00] LABS: Reflex Lactic Acid Yes or No Add Lactic
[2022-11-30 20:35] VITALS: BP 129/63; PULSE 73; RESP 22; TEMP 36.1
[2022-11-30 21:01] LABS: Lactic Acid 1.6 mmol/L (0.7-2.0)
--- NOTE | 2022-11-30 22:58 | PM.IMHP ---
H&P: HPI History of Present Illness Date/Time: 11/30/22 22:45 Chief Complaint: Altered mental status. Narrative: This is a 72-year-old female smoker with emphysema, chronic pain, hypertension, hypothyroidism, and bipolar disorder who presented to the emergency department via EMS from home for evaluation of altered mental status. She is not able to provide much in way of history due to her current clinical condition and thus a majority of the following history is obtained via a review of her electronic medical records and discussions with staff members. The patient lives alone in her own home. She had a doctor's appointment today and when she did not show up for said appointment her doctor's office called police for a wellness check. On EMS arrival she was found unclothed and lying on the floor. She was incontinent of urine and stool and her house was reportedly in a state of disarray. Friends and family members have not seen her for approximately 1 week which is apparently not unusual. In the ED: Vital signs were stable on arrival. Labs were significant for a white blood cell count of 15.3, hemoglobin 16.5, hematocrit 50.6, sodium 146, potassium 3.5, BUN 31, creatinine 0.90, glucose 164, lactic acid 2.2, calcium 11.9, bilirubin 1.1, AST 63, ALT 29, alkaline phosphatase 112, total CK 291, ammonia less than 9, CRP 1.2, procalcitonin 0.3. UA showed 3+ protein, 2+ ketones, 2+ blood, positive nitrates, 11 to 20 RBC, 0 to 5 WBC, and 4+ bacteria. Brain CT and chest x-ray showed no acute processes. CT of the abdomen and pelvis showed evidence of esophagitis/gastritis, fecal impaction, and mild urinary bladder thickening. She was given a dose of levofloxacin for suspected UTI and a L of normal saline and she has been admitted in this setting for further care. At the time my evaluation she is alert to name and date of only. She does not know that she is in the hospital and she does not recall how she got here. She does not remember being on the floor at home or the events over the past week or so. She denies headache, chest pain, shortness a breath, abdominal pain, nausea, and vomiting. She voices no current complaints. Review of Systems Review of Systems: Unable to be obtained accurately given her altered mental status as above. She does not answer all of my questions and those that she attempts to answer are not always answered appropriately for the question asked. [facility] Past Medical History Medical History (Updated 12/01/22 @ 00:09 by Pham Quinones PA-C) Anxiety Arthritis Bipolar disorder Cataract Chronic back pain Chronic coccygeal pain Degenerative joint disease Depression Emphysema with chronic bronchitis Essential hypertension Hyperlipidemia Hypothyroidism Peripheral neuropathy Tobacco dependence Tremors of nervous system Type 2 diabetes mellitus Surgical History Surgical History History of appendectomy History of bunionectomy History of spinal surgery History of tonsillectomy and adenoidectomy History of total hysterectomy with bilateral salpingo-oophorectomy (BSO) Family History Family History Father , At age 90 Diabetes mellitus Kidney disease Mother , At age 80 Heart disease Social History Social History (Updated 11/30/22 @ 23:00 by Pham Quinones PA-C) Social History: Surrogate medical decision maker: Code status: Full code. Smoking packs per day: 3 Smoking cigarettes per day: 60.0 Smoking status: Current some day smoker Tobacco type: cigarettes Smoking end date: 09/30/16 Additional smoking assessment comments: Smoke 3 packs per day up to 1999. Now states only smokes a little Alcohol intake: never Substance use: never Additional living arrangements comments: . Lives in her own home. No children. Additional occupation/education
[2022-11-30 23:41] LABS: Parathyroid Intact 84.1 pg/mL (7.5-53.5)
[2022-11-30 23:47] LABS: Vitamin D 25 Hydroxy 51.4 ng/mL
[2022-11-30 23:48] LABS: Acetaminophen < 10 ug/mL (10-30); Ammonia < 9 umol/L (9-30); Salicylate < 1.0 mg/dL (2-20)
[2022-11-30 23:49] LABS: Anion Gap -9 mmol/L (8-16); Blood Urea Nitrogen 30 mg/dL (7-17); Calcium 11.1 mg/dL (8.4-10.2); Carbon Dioxide 27 mmol/L (22-30); Chloride 109 mmol/L (98-107); Estimated Glomerular Filt Rate > 60; Glucose 124 mg/dL (65-110); Magnesium 1.5 mg/dL (1.6-2.3); Phosphorus 2.6 mg/dL (2.5-4.5); Potassium 3.3 mmol/L (3.4-5.0); Sodium 127 mmol/L (137-145)
[2022-11-30 23:53] LABS: Ethanol < 10 mg/dL (<10)
[2022-12-01] VITALS (9 sets, daily range): BP systolic 136–147; BP diastolic 56–66; PULSE 71–97; RESP 16–20; TEMP 36.1–36.9; O2SAT 93–99
[2022-12-01] LABS: Thyroid Stimulating Hormone Reflex 0.593 uIU/mL (0.465-4.68)
[2022-12-01] MEDS: LACTATED RINGERS 1,000 ML 100 ML IV CONT ×2 (02:40→22:50)
[2022-12-01 05:42] LABS: Hematocrit 41.2 % (37.0-47.0); Mean Corpuscular HGB Conc 31.6 g/dl (32-36); Mean Corpuscular Hemoglobin 31.6 pg (26-34); Mean Platelet Volume 10.2 fl (7.4-10.4); Platelet Count Result 183 k/mm3 (150-375); Red Blood Count 4.12 M/mm3 (4.2-5.4); Red Cell Distribution Width 13.5 % (11.5-14.5); White Blood Count 10.7 K/mm3 (4.5-10.0)
[2022-12-01 06:12] LABS: Alanine Aminotransferase 24 U/L (6-35); Albumin Level 3.6 g/dL (3.5-5.1); Alkaline Phosphatase 88 U/L (38-126); Anion Gap 6 mmol/L (8-16); Aspartate Amino Transferase 49 U/L (14-36); Bilirubin,Total 0.9 mg/dL (0.2-1.3); Blood Urea Nitrogen 31 mg/dL (7-17); Calcium 11.1 mg/dL (8.4-10.2); Carbon Dioxide 27 mmol/L (22-30); Chloride 111 mmol/L (98-107); Creatine Kinase 93 U/L (30-135); Estimated Glomerular Filt Rate > 60; Glucose 130 mg/dL (65-110); Potassium 3.5 mmol/L (3.4-5.0); Sodium 144 mmol/L (137-145)
[2022-12-01 06:20] LABS: Amphetamine Screen Urine Negative (Negative); Barbiturate Screen Urine Negative (Negative); Benzodiazepines Screen Urine Negative (Negative); Cannabinoid Screen Urine Negative (Negative); Cocaine Screen Urine Negative (Negative); Methadone Screen Urine Negative (Negative); Opiate Screen Urine Positive (Negative); Phencyclidine Screen Urine Negative (Negative)
[2022-12-01] MEDS: MAGNESIUM SULF 2 GM/WATER 50ML 2 GM/50 ML BAG IVPB (07:22)
--- NOTE | 2022-12-01 07:22 | ECHO_ITS ---
Patient Info Name: Mirian Coe Age: 72 years : 1950 Gender: Female Ht: 65 in Wt: 119 lbs BSA: 1.57 m2 HR: 79 bpm BP: 129 / 63 mmHg Technical Quality: Good Exam Date: 12/01/2022 6:34 AM Exam Location: [facility] Patient Status: Outpatient Admit Date: 11/30/2022 Staff Ordering Physician: Pham Quinones PA-C Cvt Rn: Summer Almanza RDCS Attending Provider: Virginie Bell DO Referring Physician: Joni MERIDA; Exam Type: CA echo doppler color flow Study Info Indications R94.31 - Abnormal electrocardiogram ECG EKG Complete two-dimensional, color flow and Doppler transthoracic echocardiogram is performed. Summary 1. Complete two-dimensional, color flow and Doppler transthoracic echocardiogram is performed. 2. Left ventricular chamber dimension is normal. 3. Left ventricular systolic function is normal, estimated at 60-65%. 4. Left atrial chamber dimension is normal. 5. Right atrial chamber dimension is normal. 6. Right ventricular chamber dimension is normal. Left Ventricle Left ventricular chamber dimension is normal. Left ventricular systolic function is normal, estimated at 60-65%. There is no increased left ventricular wall thickness. Left ventricular septal wall motion is normal. The left ventricular diastolic function is normal. Right Ventricle Right ventricular chamber dimension is normal. Right ventricular systolic function is normal. Left Atria Left atrial chamber dimension is normal. Right Atria Right atrial chamber dimension is normal. Aortic Valve The aortic valve is trileaflet. There is no aortic valve sclerosis. There is no aortic valve stenosis. There is no aortic valve regurgitation. Pulmonic Valve The pulmonic valve is not well visualized. There is no pulmonic valve stenosis. There is no pulmonic regurgitation. Mitral Valve The mitral valve has normal leaflets. There is no mitral valve stenosis. There is no mitral valve regurgitation. Tricuspid Valve The tricuspid valve leaflets are normal. There is no significant tricuspid valve stenosis. There is no tricuspid valve regurgitation. Pericardium/Pleural The pericardium appears normal. There is no pericardial effusion. Inferior Vena Cava Normal inferior vena cava with >50% collapse upon inspiration consistent with normal right atrial pressure. Aorta The aortic root size at the sinus of Valsalva is normal. The prox ascending aorta size is normal. Report Signatures
[2022-12-01] MEDS: KCL 20 MEQ/SW 100 ML 100 ML 50 MEQ IVPB (09:17)
[2022-12-01] MEDS: PANTOPRAZOLE SODIUM IV 40 MG VIAL IV PUSH ×2 (09:17→20:33)
--- NOTE | 2022-12-01 10:07 | PM.IMPN ---
Progress Note: A&P Assessment and Plan (1) Altered mental status: Qualifiers: Altered mental status type: unspecified Qualified Code(s): R41.82 - Altered mental status, unspecified Code(s): R41.82 - Altered mental status, unspecified Status: Acute Assessment and Plan: Etiology is not entirely clear. May be related to infection (possible urinary tract infection; FOOD PROCESSING SCIENTIST infection seems less likely by exam findings), electrolyte abnormalities (hypercalcemia more likely than mild hypernatremia), dehydration, drug ingestion (drug screen shows opioids positive and she reportedly is receiving pain management and alcohol levels negative), drug overdose (lamotrigine and topiramate levels pending; exam findings not consistent with opiate overdose), seizure with postictal state (no history of seizures but she was incontinent with evidence of tongue bite), stroke (no focal deficits) CT head without acute findings. Carotid US with <50% stenosis bilaterally. ABG did not demonstrate hypercarbia or hypoxia. Continue with empiric antibiotics to treat possible UTI and IV fluids. Continue neurologic checks q.4 hours. seizure precautions. EEG ordered for further evaluation. No hypoglycemia noted. B12, folate and TSH within normal limits. Consider brain MRI if does not improve with infection or hydration. (2) Dehydration: Code(s): E86.0 - Dehydration Status: Acute Assessment and Plan: She appeared dry on exam and by labs. Continue judicious IV fluid rehydration. Saline lock when VS and taking good PO. (3) Abnormal urinalysis: Code(s): R82.90 - Unspecified abnormal findings in urine Status: Acute Assessment and Plan: Continue levofloxacin, pending urine culture. (4) Hypercalcemia: Code(s): E83.52 - Hypercalcemia Status: Acute Assessment and Plan: Calcium has been high before but not this high. She is on Citracal +D at home which will be held. Renal function is normal but she is certainly dehydrated. No diuretic listed on her home medication list. She has a history of pulmonary nodules and has a significant smoking history but chest x-ray showed no concerning mass. Vitamin-D levels pending, ionized calcium pending, and parathyroid hormone elevated. (5) Elevated creatine kinase: Code(s): R74.8 - Abnormal levels of other serum enzymes Status: Acute Assessment and Plan: Likely related to being on the floor though it is unclear how long she was down. Trended to normal. No muscle complaints (6) Tobacco dependence: Code(s): F17.200 - Nicotine dependence, unspecified, uncomplicated Status: Chronic Assessment and Plan: She declines the need for nicotine patch. (7) Fecal impaction: Code(s): K56.41 - Fecal impaction Status: Acute Assessment and Plan: Continue MiraLax. Monitor stools. (8) Esophagitis with gastritis: Code(s): K29.70 - Gastritis, unspecified, without bleeding; K20.90 - Esophagitis, unspecified without bleeding Status: Acute Assessment and Plan: Noted on CT scan. Continue pantoprazole. (9) Abnormal EKG: Code(s): R94.31 - Abnormal electrocardiogram [ECG] [EKG] Status: Acute Assessment and Plan: EKG shows ST T-wave abnormalities in anterolateral leads and age indeterminate inferior infarct as well as an incomplete right bundle-branch block and interventricular conduction delay. She is not having any chest pain whatsoever. Echocardiogram pending. Continue to monitor on telemetry. Plan CODE STATUS: FULL CODE Discharge disposition: patient lives home alone and was found minimally responsive on Well Check. PT/OT consulted. She will likely need SNF rehab. Time Spent With Patient Time with patient: 25 - 35 minutes Subjective Date/time seen: 12/01/22 10:07 Interval history: Patient is confused. She states she is here for her blo
[2022-12-02] VITALS (11 sets, daily range): BP systolic 130–144; BP diastolic 58–73; PULSE 56–79; RESP 18–20; TEMP 36.6–36.8; O2SAT 94–97
--- NOTE | 2022-12-02 09:37 | PM.IMPN ---
Progress Note: A&P Assessment and Plan (1) Altered mental status: Qualifiers: Altered mental status type: unspecified Qualified Code(s): R41.82 - Altered mental status, unspecified Code(s): R41.82 - Altered mental status, unspecified Status: Acute Assessment and Plan: Etiology is not entirely clear. May be related to infection (possible urinary tract infection; STATION MECHANIC infection seems less likely by exam findings) - Continue antibiotics and adjust per culture results. electrolyte abnormalities (hypercalcemia more likely than mild hypernatremia), dehydration - continue IV fluids drug ingestion (drug screen shows opioids positive and she reportedly is receiving pain management and alcohol levels negative), drug overdose (lamotrigine and topiramate levels pending; exam findings not consistent with opiate overdose), seizure with postictal state (no history of seizures but she was incontinent with evidence of tongue bite), stroke (no focal deficits) CT head without acute findings. Carotid US with <50% stenosis bilaterally. Unable to obtain MRI brain due to implanted pain device. Check CTA head and neck. ABG did not demonstrate hypercarbia or hypoxia. Continue neurologic checks q.4 hours. seizure precautions. EEG pending. No hypoglycemia noted. B12, folate and TSH within normal limits. (2) Dehydration: Code(s): E86.0 - Dehydration Status: Acute Assessment and Plan: She appeared dry on exam and by labs on admission. Continue judicious IV fluid rehydration. Saline lock when VS and taking good PO. Improving. (3) Abnormal urinalysis: Code(s): R82.90 - Unspecified abnormal findings in urine Status: Acute Assessment and Plan: UA concerning for infection. Patient was found unresponsive and WBC 15 on admission. Started on Levaquin 750 mg IV Q24 hours. 12/02 urine culture shows enterococcus species. Change to Vancomycin IV pharmacy to dose until sensitivities resulted. Blood culture with Gram positive cocci in one of 2 bottles. Likely contaminant, but should be covered by Vancomycin. (4) Hypercalcemia: Code(s): E83.52 - Hypercalcemia Status: Acute Assessment and Plan: Calcium has been high before but not this high. She is on Citracal +D at home which will be held. Renal function is normal but she is certainly dehydrated. No diuretic listed on her home medication list. She has a history of pulmonary nodules and has a significant smoking history but chest x-ray showed no concerning mass. Vitamin-D levels pending, ionized calcium pending, and parathyroid hormone elevated. 12/02 repeat calcium 10.2 (5) Elevated creatine kinase: Code(s): R74.8 - Abnormal levels of other serum enzymes Status: Acute Assessment and Plan: Likely related to being on the floor though it is unclear how long she was down. Trended to normal. No muscle complaints (6) Tobacco dependence: Code(s): F17.200 - Nicotine dependence, unspecified, uncomplicated Status: Chronic Assessment and Plan: She declines the need for nicotine patch. (7) Fecal impaction: Code(s): K56.41 - Fecal impaction Status: Acute Assessment and Plan: Continue MiraLax. Patient with BM x3 12/01-12/02. Continue stool softeners. (8) Esophagitis with gastritis: Code(s): K29.70 - Gastritis, unspecified, without bleeding; K20.90 - Esophagitis, unspecified without bleeding Status: Acute Assessment and Plan: Noted on CT scan. Continue pantoprazole. (9) Abnormal EKG: Code(s): R94.31 - Abnormal electrocardiogram [ECG] [EKG] Status: Acute Assessment and Plan: EKG shows ST T-wave abnormalities in anterolateral leads and age indeterminate inferior infarct as well as an incomplete right bundle-branch block and interventricular conduction delay. She is not having any chest pain wh
[2022-12-02 09:57] LABS: Basophils Percent Auto 0.2 % (0.2-1.2); Eosinophils Percent Auto 0.2 % (0-4.4); Hematocrit 39.5 % (37.0-47.0); Hemoglobin 12.4 g/dL (12.0-15.0); Immature Granulocyte Absolute 0.04 K/mm3 (0.00-0.031); Immature Granulocyte Percent A 0.5 % (0-0.5); Lymphocytes Absolute Auto 1.65 K/mm3 (0.9-3.2); Lymphocytes Percent Auto 19.4 % (18.3-44.2); Mean Corpuscular HGB Conc 31.4 g/dl (32-36); Mean Corpuscular Hemoglobin 31.6 pg (26-34); Mean Corpuscular Volume 100.5 fl (80-100); Mean Platelet Volume 9.8 fl (7.4-10.4); Monocytes Absolute Auto 0.4 K/mm3 (0.1-0.6); Monocytes Percent Auto 4.9 % (2.6-8.5); Neutrophils Absolute Auto 6.4 K/mm3 (1.3-6.7); Neutrophils Percent Auto 74.8 % (45.5-73.1); Platelet Count Result 155 k/mm3 (150-375); Red Blood Count 3.93 M/mm3 (4.2-5.4); Red Cell Distribution Width 13.2 % (11.5-14.5); White Blood Count 8.5 K/mm3 (4.5-10.0)
[2022-12-02 10:06] LABS: Anion Gap 4 mmol/L (8-16); Blood Urea Nitrogen 26 mg/dL (7-17); Calcium 10.2 mg/dL (8.4-10.2); Carbon Dioxide 28 mmol/L (22-30); Chloride 108 mmol/L (98-107); Estimated Glomerular Filt Rate > 60; Glucose 195 mg/dL (65-110); Magnesium 1.7 mg/dL (1.6-2.3); Potassium 2.9 mmol/L (3.4-5.0); Sodium 140 mmol/L (137-145)
[2022-12-02 10:11] LABS: Hemoglobin A1C 5.6 % (<5.7)
[2022-12-02] MEDS: LACTATED RINGERS 1,000 ML 50 ML IV CONT (12:18)
[2022-12-02] MEDS: ASCORBIC ACID 500 MG TABLET PO (12:21)
[2022-12-02] MEDS: ASPIRIN 81 MG ENTERIC TABLET PO (12:21)
[2022-12-02] MEDS: CITALOPRAM HYDROBROMIDE 20 MG TABLET PO (12:23)
[2022-12-02 12:43] LABS: Glucose Point of Care 185 mg/dl (65-105)
[2022-12-02] MEDS: POTASSIUM CHLORIDE 20 MEQ PACKET (FOR LIQUID) 60 MEQ PO (14:58)
[2022-12-02] MEDS: MAGNESIUM SULF 2 GM/WATER 50ML 2 GM/50 ML BAG IVPB (14:58)
[2022-12-02] MEDS: oxyCODONE/ACETAMINOPHEN (*CRX) 5-325 MG TABLET 1 TABLET PO ×2 (14:58→21:04)
[2022-12-02] MEDS: POTASSIUM CHLORIDE INJ 40 MEQ in SODIUM CHLORIDE 0.9% IV 500 ML 130 MEQ IVPB (16:56)
[2022-12-02] MEDS: GABAPENTIN 100 MG CAPSULE PO (17:03)
[2022-12-02] MEDS: lamoTRIgine 50 MG TABLET 150 MG PO (17:04)
[2022-12-02] MEDS: PROPRANOLOL HCL 20 MG TABLET PO (17:05)
[2022-12-02 17:09] LABS: Glucose Point of Care 120 mg/dl (65-105)
[2022-12-02] MEDS: TOPIRAMATE 25 MG TABLET 50 MG PO (21:03)
[2022-12-02] MEDS: PANTOPRAZOLE SODIUM IV 40 MG VIAL IV PUSH (21:04)
[2022-12-02] MEDS: ATORVASTATIN 20 MG TABLET PO (21:04)
[2022-12-02 21:07] LABS: Glucose Point of Care 154 mg/dl (65-105)
[2022-12-03] VITALS (11 sets, daily range): BP systolic 118–149; BP diastolic 53–71; PULSE 50–64; RESP 16–18; TEMP 35.9–37; O2SAT 97–98; BMI 19.8
[2022-12-03 05:54] LABS: Anion Gap 3 mmol/L (8-16); Blood Urea Nitrogen 19 mg/dL (7-17); Calcium 9.4 mg/dL (8.4-10.2); Carbon Dioxide 25 mmol/L (22-30); Chloride 109 mmol/L (98-107); Estimated CRCL calculation 47 ml/min; Estimated Glomerular Filt Rate > 60; Glucose 105 mg/dL (65-110); Potassium 3.4 mmol/L (3.4-5.0); Sodium 137 mmol/L (137-145)
[2022-12-03] MEDS: LEVOTHYROXINE SODIUM 100 MCG TABLET PO (06:18)
[2022-12-03] MEDS: oxyCODONE/ACETAMINOPHEN (*CRX) 5-325 MG TABLET 1 TABLET PO ×3 (06:18→20:41)
[2022-12-03] MEDS: TOPIRAMATE 25 MG TABLET 50 MG PO ×2 (06:18→20:41)
[2022-12-03 09:07] LABS: Glucose Point of Care 110 mg/dl (65-105)
[2022-12-03] MEDS: CITALOPRAM HYDROBROMIDE 20 MG TABLET PO (09:20)
[2022-12-03] MEDS: ASPIRIN 81 MG ENTERIC TABLET PO (09:20)
[2022-12-03] MEDS: lamoTRIgine 50 MG TABLET 150 MG PO ×2 (09:20→17:32)
[2022-12-03] MEDS: ASCORBIC ACID 500 MG TABLET PO (09:20)
[2022-12-03] MEDS: MULTIVITAMINS THERAPEUTIC TAB (*BKC) 1 TABLET PO (09:20)
[2022-12-03] MEDS: GABAPENTIN 100 MG CAPSULE PO ×2 (09:20→17:32)
[2022-12-03] MEDS: polyethylene glycoL 3350 17 GM POWD.PACK PO (09:21)
[2022-12-03] MEDS: PANTOPRAZOLE SODIUM IV 40 MG VIAL IV PUSH ×2 (09:21→20:42)
--- NOTE | 2022-12-03 10:57 | P.PNIM_ITS ---
Progress Note: A&P Assessment and Plan (1) Altered mental status: Qualifiers: Altered mental status type: unspecified Qualified Code(s): R41.82 - Altered mental status, unspecified Code(s): R41.82 - Altered mental status, unspecified Status: Acute Assessment and Plan: Etiology is not entirely clear. * May be related to infection (possible urinary tract infection; POTTERY KILN BUILDER infection seems less likely by exam findings) - Continue antibiotics and adjust per culture results. * electrolyte abnormalities (hypercalcemia more likely than mild hypernatremia), * dehydration - continue IV fluids * drug ingestion (drug screen shows opioids positive and she reportedly is receiving pain management and alcohol levels negative), * drug overdose (lamotrigine and topiramate levels pending; exam findings not consistent with opiate overdose), * seizure with postictal state (no history of seizures but she was incontinent with evidence of tongue bite), * stroke (no focal deficits) CT head without acute findings. Carotid US with <50% stenosis bilaterally. Unable to obtain MRI brain due to implanted pain device. Check CTA head and neck. * ABG did not demonstrate hypercarbia or hypoxia. * Continue neurologic checks q.4 hours. seizure precautions. * Routine EEG normal. * No hypoglycemia noted. * B12, folate and TSH within normal limits. * Improving (2) Dehydration: Code(s): E86.0 - Dehydration Status: Resolved Assessment and Plan: She appeared dry on exam and by labs on admission. * Continue judicious IV fluid rehydration. * Saline lock when VS and taking good PO. * Improving. (3) Abnormal urinalysis: Code(s): R82.90 - Unspecified abnormal findings in urine Status: Resolved Assessment and Plan: UA concerning for infection. Patient was found unresponsive and WBC 15 on admission. * Started on Levaquin 750 mg IV Q24 hours. * 12/02 urine culture shows pansensitive enterococcus species. Change to Vancomycin IV pharmacy to dose until sensitivities resulted. * Blood culture with Gram positive cocci in one of 2 bottles. Likely contaminant, but should be covered by Vancomycin. * 12/03 If blood culture suggest contamination, will change to amoxicillin 500 mg Q8 hours (4) UTI (urinary tract infection) due to Enterococcus: Code(s): N39.0 - Urinary tract infection, site not specified; B95.2 - Enterococcus as the cause of diseases classified elsewhere Status: Acute Assessment and Plan: UA concerning for infection. Patient was found unresponsive and WBC 15 on admission. No noted fevers, will * Started on Levaquin 750 mg IV Q24 hours. * 12/02 urine culture shows pansensitive enterococcus species. Change to Vancomycin IV pharmacy to dose until sensitivities resulted. * Blood culture with Gram positive cocci in one of 2 bottles. Gram positive cocci growth staph epidermis and contaminate. * 12/03 If blood culture suggest contamination, will change to amoxicillin 500 mg Q8 hours and treat times total 7 days for acute cystitis. (5) Hypercalcemia: Code(s): E83.52 - Hypercalcemia Status: Resolved Assessment and Plan: Calcium has been high before but not this high. * She is on Citracal +D at home which will be held. * Renal function is normal but she is certainly dehydrated. * No diuretic listed on her home medication list. * She has a history of pulmonary nodules and has a significant smoking history but chest x-ray showed no concerning mass. * Vitamin-D 25-OH 51 and other vitamin D panel levels p
--- NOTE | 2022-12-03 10:57 | PM.IMPN ---
Progress Note: A&P Assessment and Plan (1) Altered mental status: Qualifiers: Altered mental status type: unspecified Qualified Code(s): R41.82 - Altered mental status, unspecified Code(s): R41.82 - Altered mental status, unspecified Status: Acute Assessment and Plan: Etiology is not entirely clear. May be related to infection (possible urinary tract infection; DIRECTOR CAREER infection seems less likely by exam findings) - Continue antibiotics and adjust per culture results. electrolyte abnormalities (hypercalcemia more likely than mild hypernatremia), dehydration - continue IV fluids drug ingestion (drug screen shows opioids positive and she reportedly is receiving pain management and alcohol levels negative), drug overdose (lamotrigine and topiramate levels pending; exam findings not consistent with opiate overdose), seizure with postictal state (no history of seizures but she was incontinent with evidence of tongue bite), stroke (no focal deficits) CT head without acute findings. Carotid US with <50% stenosis bilaterally. Unable to obtain MRI brain due to implanted pain device. Check CTA head and neck. ABG did not demonstrate hypercarbia or hypoxia. Continue neurologic checks q.4 hours. seizure precautions. Routine EEG normal. No hypoglycemia noted. B12, folate and TSH within normal limits. Improving (2) Dehydration: Code(s): E86.0 - Dehydration Status: Resolved Assessment and Plan: She appeared dry on exam and by labs on admission. Continue judicious IV fluid rehydration. Saline lock when VS and taking good PO. Improving. (3) Abnormal urinalysis: Code(s): R82.90 - Unspecified abnormal findings in urine Status: Resolved Assessment and Plan: UA concerning for infection. Patient was found unresponsive and WBC 15 on admission. Started on Levaquin 750 mg IV Q24 hours. 12/02 urine culture shows pansensitive enterococcus species. Change to Vancomycin IV pharmacy to dose until sensitivities resulted. Blood culture with Gram positive cocci in one of 2 bottles. Likely contaminant, but should be covered by Vancomycin. 12/03 If blood culture suggest contamination, will change to amoxicillin 500 mg Q8 hours (4) UTI (urinary tract infection) due to Enterococcus: Code(s): N39.0 - Urinary tract infection, site not specified; B95.2 - Enterococcus as the cause of diseases classified elsewhere Status: Acute Assessment and Plan: UA concerning for infection. Patient was found unresponsive and WBC 15 on admission. No noted fevers, will Started on Levaquin 750 mg IV Q24 hours. 12/02 urine culture shows pansensitive enterococcus species. Change to Vancomycin IV pharmacy to dose until sensitivities resulted. Blood culture with Gram positive cocci in one of 2 bottles. Gram positive cocci growth staph epidermis and contaminate. 12/03 If blood culture suggest contamination, will change to amoxicillin 500 mg Q8 hours and treat times total 7 days for acute cystitis. (5) Hypercalcemia: Code(s): E83.52 - Hypercalcemia Status: Resolved Assessment and Plan: Calcium has been high before but not this high. She is on Citracal +D at home which will be held. Renal function is normal but she is certainly dehydrated. No diuretic listed on her home medication list. She has a history of pulmonary nodules and has a significant smoking history but chest x-ray showed no concerning mass. Vitamin-D 25-OH 51 and other vitamin D panel levels pending, ionized calcium pending, and parathyroid hormone elevated. 12/02 repeat calcium 10.2 (6) Elevated creatine kinase: Code(s): R74.8 - Abnormal levels of other serum enzymes Status: Resolved Assessment and Plan: Likely related to being on the floor though it is unclear how long she was down. Trended to normal. No muscle complaints (7) Tobacco dependence:
[2022-12-03 12:25] LABS: Glucose Point of Care 168 mg/dl (65-105)
--- NOTE | 2022-12-03 14:19 | P.NEURO_ITS ---
Neurology EEG Report General Information Date of Study: 12/03/22 TEST Routine EEG DIAGNOSIS Altered mental status CONDITION OF RECORDING Awake, drowsy, asleep EEG NUMBER [id number] CLINICAL HISTORY Patient was found unclothed on the floor, incontinent of urine and stool and house was in a state of disarray. Patient was brought in for evaluation of altered mental status. Mental status has improved since admission. EEG DESCRIPTION During the awake state with eyes closed the background consists of 10Hz posterior dominant rhythm which attenuates appropriately with eye opening. The recording is continuous. There is a well developed anterior-posterior gradient. No significant asymmetries of background activities are noted. With drowsiness there is waxing and waning of the dominant rhythm with eventual replacement by a mixture of beta, alpha, and theta activity. As the patient enters stage II sleep, symmetrical spindles and K-complexes are present. Arousal is unremarkable. There are no epileptiform discharges or seizures during this recor ding. Hyperventilation and photic stimulation were not performed. IMPRESSION This is a normal routine EEG recorded in awake and asleep states. There are no electrographic seizures identified, nor are there any epileptiform discharges. Please note that a normal EEG cannot exclude a seizure disorder. Clinical correlation is recommended.
[2022-12-03 17:22] LABS: Glucose Point of Care 115 mg/dl (65-105)
[2022-12-03] MEDS: PROPRANOLOL HCL 20 MG TABLET PO (17:33)
[2022-12-03] MEDS: ATORVASTATIN 20 MG TABLET PO (20:42)
[2022-12-03] MEDS: NITROFURANTOIN MONOHYD MACROCR 100 MG CAP PO (20:42)
[2022-12-03 21:06] LABS: Glucose Point of Care 200 mg/dl (65-105)
[2022-12-04] VITALS (13 sets, daily range): BP systolic 100–128; BP diastolic 37–86; PULSE 47–78; RESP 16–19; TEMP 36.2–36.4; O2SAT 98–100
[2022-12-04] MEDS: TOPIRAMATE 25 MG TABLET 50 MG PO ×2 (05:55→20:18)
[2022-12-04] MEDS: oxyCODONE/ACETAMINOPHEN (*CRX) 5-325 MG TABLET 1 TABLET PO ×2 (05:55→14:02)
[2022-12-04] MEDS: LEVOTHYROXINE SODIUM 100 MCG TABLET PO (05:57)
[2022-12-04 06:11] LABS: Hematocrit 34.9 % (37.0-47.0); Immature Platelet Fraction Pct 3.7 % (0.9-11.2); Mean Corpuscular HGB Conc 31.5 g/dl (32-36); Mean Corpuscular Hemoglobin 32.4 pg (26-34); Mean Corpuscular Volume 102.9 fl (80-100); Mean Platelet Volume 10.2 fl (7.4-10.4); Platelet Count Result 140 k/mm3 (150-375); Red Blood Count 3.39 M/mm3 (4.2-5.4); White Blood Count 5.8 K/mm3 (4.5-10.0)
[2022-12-04 06:20] LABS: Anion Gap 4 mmol/L (8-16); Blood Urea Nitrogen 16 mg/dL (7-17); Calcium 9.8 mg/dL (8.4-10.2); Carbon Dioxide 28 mmol/L (22-30); Chloride 105 mmol/L (98-107); Estimated CRCL calculation 45 ml/min; Estimated Glomerular Filt Rate > 60; Glucose 100 mg/dL (65-110); Potassium 3.4 mmol/L (3.4-5.0); Sodium 137 mmol/L (137-145)
[2022-12-04 08:05] LABS: Glucose Point of Care 111 mg/dl (65-105)
--- NOTE | 2022-12-04 08:26 | PCPTNOTE ---
Patient refused treatment this session due to patient wanting to eat breakfast before working with therapy.
[2022-12-04] MEDS: LACTATED RINGERS 1,000 ML 50 ML IV CONT (08:36)
[2022-12-04] MEDS: NITROFURANTOIN MONOHYD MACROCR 100 MG CAP PO ×2 (09:18→20:18)
[2022-12-04] MEDS: ASCORBIC ACID 500 MG TABLET PO (09:18)
[2022-12-04] MEDS: MULTIVITAMINS THERAPEUTIC TAB (*BKC) 1 TABLET PO (09:18)
[2022-12-04] MEDS: PANTOPRAZOLE SODIUM IV 40 MG VIAL IV PUSH (09:18)
[2022-12-04] MEDS: polyethylene glycoL 3350 17 GM POWD.PACK PO (09:18)
[2022-12-04] MEDS: ASPIRIN 81 MG ENTERIC TABLET PO (09:18)
[2022-12-04] MEDS: lamoTRIgine 50 MG TABLET 150 MG PO ×2 (10:02→17:11)
[2022-12-04] MEDS: GABAPENTIN 100 MG CAPSULE PO ×2 (10:02→17:11)
[2022-12-04] MEDS: CITALOPRAM HYDROBROMIDE 20 MG TABLET PO (10:02)
[2022-12-04] MEDS: POTASSIUM CHLORIDE 20 MEQ PACKET (FOR LIQUID) PO (10:02)
[2022-12-04 12:17] LABS: Glucose Point of Care 166 mg/dl (65-105)
--- NOTE | 2022-12-04 14:23 | P.DS_ITS ---
DS: Admitting Diagnosis Discharge Date 12/04/2022 Admitting Diagnosis Altered mental status, unspecified Dehydration Abnormal urinalysis Hypercalcemia Elevated creatine kinase Tobacco dependence: Fecal impaction Esophagitis with gastritis Abnormal EKG DS: Discharge Diagnosis Discharge Diagnosis (1) Altered mental status: Qualifiers: Altered mental status type: unspecified Qualified Code(s): R41.82 - Altered mental status, unspecified Code(s): R41.82 - Altered mental status, unspecified Status: Acute Assessment and Plan: Metabolic encephalopathy. Etiology unknown. May be secondary to acute infection or medication induced. * May be related to infection- UTI and treated with antibiotics adjusted per culture results. * electrolyte abnormalities- hypercalcemia and mild hypernatremia secondary to dehydration and treated with IV fluids. * drug ingestion- drug screen shows opioids positive and she reportedly is receiving pain management. Patient takes scheduled Morphine ER 15 mg, Percocet 10/325 mg TID, Lyrical and gabapentin. Medications confirmed with Pain management clinic. Narcotics had been held 72 hours due to unresponsive state and confusion. Morphine ER held, Percocet 5/325 mg TID ordered, Lyrica held. Gabapentin 100 mg BID ordered. * drug overdose- lamotrigine and topiramate levels pending * seizure less likely. EEG negative. * Possible stroke- exam without focal findings, CT head without acute findings. Carotid US with <50% stenosis bilaterally. Unable to obtain MRI brain due to implanted pain device. CTA head and neck without LVO * ABG without hypercarbia or hypoxia * Continue neurologic checks q.4 hours. seizure precautions. * No hypoglycemia noted. * B12, folate and TSH within normal limits. * Improved with above therapies, patient may have underlying dementia (2) Dehydration: Code(s): E86.0 - Dehydration Status: Resolved Assessment and Plan: She appeared dry on exam and by labs on admission. * treated with IV fluids. * Saline locked when VS stable and taking good PO. (3) UTI (urinary tract infection) due to Enterococcus: Code(s): N39.0 - Urinary tract infection, site not specified; B95.2 - Enterococcus as the cause of diseases classified elsewhere Status: Resolved Assessment and Plan: UA concerning for infection. Patient was found unresponsive and WBC 15 on admission. No noted fevers * Started on Levaquin 750 mg IV Q24 hours on admission * 12/02 urine culture shows enterococcus species. Changed to Vancomycin IV phar heidi to dose until sensitivities resulted. * Blood culture with Gram positive cocci in one of 2 bottles. Gram positive cocci growth staph epidermis and likely contamination. * 12/03/22 changed to macrobid 100 mg PO BID for total 7 days due to PCN allergy (4) Hypercalcemia: Code(s): E83.52 - Hypercalcemia Status: Resolved Assessment and Plan: Calcium has been high before but not this high. * She is on Citracal +D at home which will be held. * Renal function is normal but she is certainly dehydrated. * No diuretic listed on her home medication list. * She has a history of pulmonary nodules and has a significant smoking history but chest x-ray showed no concerning mass. * Vitamin-D 25-OH 51 and other vitamin D panel levels pending, ionized calcium pending, and parathyroid hormone elevated. * 12/02 repeat calcium 10.2 (5) Elevated creatine kinase: Code(s): R74.8 - Abnormal levels of other serum enzymes Sta
--- NOTE | 2022-12-04 14:23 | PM.DS ---
DS: Admitting Diagnosis Discharge Date 12/04/2022 Admitting Diagnosis Altered mental status, unspecified Dehydration Abnormal urinalysis Hypercalcemia Elevated creatine kinase Tobacco dependence: Fecal impaction Esophagitis with gastritis Abnormal EKG DS: Discharge Diagnosis Discharge Diagnosis (1) Altered mental status: Qualifiers: Altered mental status type: unspecified Qualified Code(s): R41.82 - Altered mental status, unspecified Code(s): R41.82 - Altered mental status, unspecified Status: Acute Assessment and Plan: Metabolic encephalopathy. Etiology unknown. May be secondary to acute infection or medication induced. May be related to infection- UTI and treated with antibiotics adjusted per culture results. electrolyte abnormalities- hypercalcemia and mild hypernatremia secondary to dehydration and treated with IV fluids. drug ingestion- drug screen shows opioids positive and she reportedly is receiving pain management. Patient takes scheduled Morphine ER 15 mg, Percocet 10/325 mg TID, Lyrical and gabapentin. Medications confirmed with Pain management clinic. Narcotics had been held 72 hours due to unresponsive state and confusion. Morphine ER held, Percocet 5/325 mg TID ordered, Lyrica held. Gabapentin 100 mg BID ordered. drug overdose- lamotrigine and topiramate levels pending seizure less likely. EEG negative. Possible stroke- exam without focal findings, CT head without acute findings. Carotid US with <50% stenosis bilaterally. Unable to obtain MRI brain due to implanted pain device. CTA head and neck without LVO ABG without hypercarbia or hypoxia Continue neurologic checks q.4 hours. seizure precautions. No hypoglycemia noted. B12, folate and TSH within normal limits. Improved with above therapies, patient may have underlying dementia (2) Dehydration: Code(s): E86.0 - Dehydration Status: Resolved Assessment and Plan: She appeared dry on exam and by labs on admission. treated with IV fluids. Saline locked when VS stable and taking good PO. (3) UTI (urinary tract infection) due to Enterococcus: Code(s): N39.0 - Urinary tract infection, site not specified; B95.2 - Enterococcus as the cause of diseases classified elsewhere Status: Resolved Assessment and Plan: UA concerning for infection. Patient was found unresponsive and WBC 15 on admission. No noted fevers Started on Levaquin 750 mg IV Q24 hours on admission 12/02 urine culture shows enterococcus species. Changed to Vancomycin IV pharmacy to dose until sensitivities resulted. Blood culture with Gram positive cocci in one of 2 bottles. Gram positive cocci growth staph epidermis and likely contamination. 12/03/22 changed to macrobid 100 mg PO BID for total 7 days due to PCN allergy (4) Hypercalcemia: Code(s): E83.52 - Hypercalcemia Status: Resolved Assessment and Plan: Calcium has been high before but not this high. She is on Citracal +D at home which will be held. Renal function is normal but she is certainly dehydrated. No diuretic listed on her home medication list. She has a history of pulmonary nodules and has a significant smoking history but chest x-ray showed no concerning mass. Vitamin-D 25-OH 51 and other vitamin D panel levels pending, ionized calcium pending, and parathyroid hormone elevated. 12/02 repeat calcium 10.2 (5) Elevated creatine kinase: Code(s): R74.8 - Abnormal levels of other serum enzymes Status: Resolved Assessment and Plan: Likely related to being on the floor though it is unclear how long she was down. Trended to normal. No muscle complaints (6) Tobacco dependence: Code(s): F17.200 - Nicotine dependence, unspecified, uncomplicated Status: Chronic Assessment and Plan: She declines the need for nicotine patch. (7) Fecal impaction: Code(s): K56.41 - Fecal
[2022-12-04 16:54] LABS: Glucose Point of Care 104 mg/dl (65-105)
[2022-12-04 16:55] LABS: EDCOVIDSCREEN Negative (Negative)
[2022-12-04] MEDS: PROPRANOLOL HCL 20 MG TABLET PO (17:11)
[2022-12-04] MEDS: PANTOPRAZOLE 40 MG TABLET PO (20:18)
[2022-12-04] MEDS: ATORVASTATIN 20 MG TABLET PO (20:18)
[2022-12-05 09:50] LABS: Topiramate 1.3 mcg/mL (***)
[2022-12-05 10:35] LABS: Lamotrigine Lamictal <0.5 mcg/mL (2.5-15.0)
[2022-12-05 17:07] LABS: Ionized Calcium 5.9 mg/dL (4.7-5.5)
[2022-12-06 16:04] LABS: Vitamin D 1,25 (OH)2 Total 45 pg/mL (18-72); Vitamin D2 1,25 (OH)2 <8 pg/mL; Vitamin D3 1,25 (OH)2 45 pg/mL
[2022-12-13 11:05] LABS: Parathyroid Hormone Related Pr 8 pg/mL (11-20)
== END 2022-12-04 20:30 | DRG 689 ==
LOC: ANHED 18:44 → ANH3MED 21:46
PROVIDERS: Physician Assistant; Admitting Provider Student in an Organized Health Care Education/Training Program; Emergency Provider Emergency Medicine; PCP Internal Medicine; Visit Provider Nurse Practitioner Family
DX: N39.0 Urinary tract infection, site not specified (principal); G93.41 Metabolic encephalopathy; E44.0 Moderate protein-calorie malnutrition; E87.0 Hyperosmolality and hypernatremia; Z68.1 Body mass index [BMI] 19.9 or less, adult; B95.2 Enterococcus as the cause of diseases classified elsewhere; E86.0 Dehydration; E87.6 Hypokalemia; E03.9 Hypothyroidism, unspecified; E78.5 Hyperlipidemia, unspecified; E11.42 Type 2 diabetes mellitus with diabetic polyneuropathy; E83.52 Hypercalcemia; F41.9 Anxiety disorder, unspecified; F31.9 Bipolar disorder, unspecified; F17.210 Nicotine dependence, cigarettes, uncomplicated; G89.29 Other chronic pain; I10 Essential (primary) hypertension; J43.9 Emphysema, unspecified; K29.70 Gastritis, unspecified, without bleeding; K20.90 Esophagitis, unspecified without bleeding; K56.41 Fecal impaction; M19.90 Unspecified osteoarthritis, unspecified site; M54.50 Low back pain, unspecified; R32 Unspecified urinary incontinence; Z79.891 Long term (current) use of opiate analgesic; Z88.0 Allergy status to penicillin; Z20.822 Contact with and (suspected) exposure to COVID-19; Z96.82 Presence of neurostimulator; Z90.710 Acquired absence of both cervix and uterus; Z90.49 Acquired absence of other specified parts of digestive tract; Z98.49 Cataract extraction status, unspecified eye
CPT/HCPCS: 36415; 36600; 70450; 70496; 70498; 71045; 74177; 80048; 80053; 80175; 80201; 80307; 81001; 82140; 82306; 82330; 82550; 82607; 82652; 82805; 82948; 83036; 83519; 83605; 83735; 83970; 84100; 84145; 84443; 85025; 85027; 85055; 85610; 85652; 85730; 86140; 87040; 87086; 87147; 87181; 87186; 87426; 93005; 93306; 93880; 95816; 96361; 96365; 97116; 97161; 97165; 97530; 97535; 99285; A9270; C9113; C9803; J1956; J3370; J3475; J3480; J7030; J7040; J7120; Q9967

== ENCOUNTER 2023-04-04 17:00 | Inpatient (IN) | payer MEDICARE, SELFPAY ==
--- NOTE | ~2023-04-04 | XR_ITS ---
EXAMINATION: XR chest 2V DATE: 04/04/2023 18:05 INDICATION: Shortness of breath. TECHNIQUE: Frontal and lateral views of the chest were obtained. COMPARISON: Chest single view 11/30/2022 FINDINGS: There are lucencies in the lungs, consistent with emphysema. A calcified right lung nodule is consistent with old granulomatous disease. No pleural effusion or pneumothorax. The heart size is normal. Epidural electrodes are noted. IMPRESSION: 1. Emphysema. Reviewed, dictated and finalized at location E. IMPRESSION: 1. Emphysema.
--- NOTE | 2023-04-04 17:01 | ECG_ITS ---
Measurements Intervals Nikolai Rate: 49 P: 74 DE: 160 QRS: 19 QRSD: 89 T: 53 QT: 415 QTc: 378 Interpretive Statements SINUS BRADYCARDIA POSSIBLE LEFT ATRIAL ENLARGEMENT BASELINE ARTIFACT- I, II, V4 ABNORMAL ECG COMPARED TO ECG 11/30/2022 14:56:30 SINUS BRADYCARDIA NOW PRESENT ST-T WAVE ABNORMALITY NO LONGER PRESENT Electronically Signed On 04-04-2023 19:42:05 CDT by Saad Coates D.O.
[2023-04-04 17:21] VITALS: BP 136/48; PULSE 50; RESP 18; TEMP 36.8; O2SAT 89
[2023-04-04 17:25] LABS: Basophils Percent Auto 0.4 % (0.2-1.2); Eosinophils Absolute Auto 0.6 K/mm3 (0-0.3); Eosinophils Percent Auto 10.2 % (0-4.4); Hematocrit 40.4 % (37.0-47.0); Hemoglobin 12.4 g/dL (12.0-15.0); Immature Granulocyte Absolute 0.02 K/mm3 (0.00-0.031); Immature Granulocyte Percent A 0.4 % (0-0.5); Lymphocytes Absolute Auto 1.12 K/mm3 (0.9-3.2); Lymphocytes Percent Auto 20.5 % (18.3-44.2); Mean Corpuscular HGB Conc 30.7 g/dl (32-36); Mean Corpuscular Hemoglobin 31.7 pg (26-34); Mean Corpuscular Volume 103.3 fl (80-100); Mean Platelet Volume 9.5 fl (7.4-10.4); Monocytes Absolute Auto 0.5 K/mm3 (0.1-0.6); Monocytes Percent Auto 9.7 % (2.6-8.5); Neutrophils Absolute Auto 3.2 K/mm3 (1.3-6.7); Neutrophils Percent Auto 58.8 % (45.5-73.1); Platelet Count Result 152 k/mm3 (150-375); Red Blood Count 3.91 M/mm3 (4.2-5.4); Red Cell Distribution Width 13.4 % (11.5-14.5); White Blood Count 5.5 K/mm3 (4.5-10.0)
[2023-04-04 17:34] LABS: Alanine Aminotransferase 19 U/L (6-35); Albumin Level 4.3 g/dL (3.5-5.1); Alkaline Phosphatase 115 U/L (38-126); Anion Gap 5 mmol/L (8-16); Aspartate Amino Transferase 27 U/L (14-36); Bilirubin,Total 0.3 mg/dL (0.2-1.3); Blood Urea Nitrogen 24 mg/dL (7-17); Calcium 10.5 mg/dL (8.4-10.2); Carbon Dioxide 29 mmol/L (22-30); Chloride 104 mmol/L (98-107); Estimated Glomerular Filt Rate > 60; Glucose 137 mg/dL (65-110); Potassium 4.2 mmol/L (3.4-5.0); Sodium 138 mmol/L (137-145)
[2023-04-04 20:26] VITALS: PULSE 69; O2SAT 95
[2023-04-04 20:33] VITALS: PULSE 60; RESP 16; O2SAT 95
[2023-04-04] MEDS: IPRATROPIUM BR 0.02% INH SOLN 0.5 MG/2.5 ML VIAL 1 MG INHALATION (21:01)
[2023-04-04] MEDS: ALBUTEROL SULFATE NEB 2.5 MG/3 ML INH 10 MG INHALATION (21:01)
[2023-04-04] MEDS: MAGNESIUM SULF 2 GM/WATER 50ML 2 GM/50 ML BAG IVPB (21:13)
[2023-04-04] MEDS: SODIUM CHLORIDE 0.9% IV 1,000 ML 999 ML IV CONT (21:14)
[2023-04-04 23:36] VITALS: BP 138/52; PULSE 55; RESP 12; TEMP 36.8; O2SAT 94
[2023-04-05] VITALS (16 sets, daily range): BP systolic 132–172; BP diastolic 42–61; PULSE 51–74; RESP 12–18; TEMP 35.6–36.9; O2SAT 91–96; BMI 23.3
--- NOTE | 2023-04-05 00:08 | ED.GENADULT ---
HPI - General Adult General Chief complaint: Shortness of Breath/Dyspnea Stated complaint: Shortness of breath Time Seen by Provider: 04/04/23 20:20 History of Present Illness HPI narrative: this is a 72-year-old female with history of COPD presenting ED with shortness of breath. She has been having shortness of breath x1 week. The patient has had a nonproductive cough. No fevers chills nausea vomiting diarrhea. No lower extremity edema. No sick contacts at home. Patient is a lifelong smoker. Related Data Home Medications Medication Instructions Recorded Confirmed ascorbic acid (vitamin C) 500 mg 500 mg PO DAILY 10/10/19 12/01/22 tablet (Vitamin C) aspirin 81 mg tablet,delayed 81 mg PO DAILY 10/10/19 12/01/22 release (Adult Low Dose Aspirin) atorvastatin 20 mg tablet 20 mg PO HS 10/10/19 12/01/22 citalopram 20 mg tablet 20 mg PO DAILY 10/10/19 11/30/22 gabapentin 100 mg capsule 100 mg PO TID 10/10/19 12/01/22 lamotrigine 100 mg tablet 150 mg PO BID 10/10/19 12/01/22 levothyroxine 100 mcg tablet 100 mcg PO DAILY 10/10/19 12/01/22 pregabalin 150 mg capsule (Lyrica) 150 mg PO TID 10/10/19 12/01/22 propranolol 20 mg tablet 20 mg PO QPM 10/10/19 12/01/22 topiramate 25 mg tablet 50 mg PO BID 10/10/19 12/01/22 oxycodone-acetaminophen 10 mg-325 1 tablet PO TID 10/04/20 12/01/22 mg tablet morphine 15 mg tablet,extended 15 mg PO TID 12/01/22 12/01/22 release Allergies Allergy/AdvReac Type Severity Reaction Status Date / Time cefaclor Allergy Mild Hives Verified 04/04/23 20:37 Penicillins Allergy Mild Rash Verified 04/04/23 20:37 PMFSH Past Medical History Medical History Anxiety Arthritis Bipolar disorder Cataract Chronic back pain Chronic coccygeal pain Chronic, continuous use of opioids Degenerative joint disease Depression Emphysema with chronic bronchitis Esophagitis with gastritis Essential hypertension Hyperlipidemia Hypothyroidism Malnutrition of moderate degree Peripheral neuropathy Tobacco dependence Tremors of nervous system Type 2 diabetes mellitus Surgical History Surgical History History of appendectomy History of bunionectomy History of spinal surgery History of tonsillectomy and adenoidectomy History of total hysterectomy with bilateral salpingo-oophorectomy (BSO) Family History Family History Father , At age 90 Diabetes mellitus Kidney disease Mother , At age 80 Heart disease Social History Social History Social History: Surrogate medical decision maker: Code status: Full code. Smoking packs per day: 3 Smoking cigarettes per day: 60.0 Smoking status: Current some day smoker Tobacco type: cigarettes Smoking end date: 09/30/16 Additional smoking assessment comments: Smoke 3 packs per day up to 1999. Now states only smokes a little Alcohol intake: never Substance use: never Lack of Transportation: No Lack of Food: Never True Current Housing: I Have Housing Concerned About Future Housing: No Difficulty Paying Gas/Electric Bills: No Difficulty Paying for Meds: No Currently Unemployed: No Education: Trade/Vocational Certificate Difficulty w/ Childcare or Family Care: No Additional living arrangements comments: . Lives in her own home. No children. 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 Spiritual care concerns: No Exam Narrative: APPEARANCE: No apparent distress. Head: atraumatic. EYES: EOMI, NOSE: Atraumatic NECK: Trachea midline RESPIRATORY: Wheezing in all [place], hypoxic on room air CARDIOVASCULAR: RRR, no peripheral edema ABDOMINAL: Non-distended MUSCULOSKELETAl: No obvious deformities NEURO: Alert. Moving 4/4 extremities S
[2023-04-05 00:13] LABS: Influenza A QL RT-PCR Negative (Negative); Influenza B QL RT-PCR Negative (Negative); RSV RNA, RT-PCR Negative (Negative); SARS-CoV-2 RNA PCR Negative (Negative)
--- NOTE | 2023-04-05 00:41 | PM.IMHP ---
H&P: HPI History of Present Illness Date/Time: 04/05/23 00:41 Chief Complaint: sob Narrative: This is a 72-year-old female with past medical history significant for tobacco dependence, COPD / emphysema, patient presents to the emergency room due to worsening shortness of breaths for the last week or so cough productive of yellow lesion greenish sputum, no fevers no rigors no chills, no nausea, no vomiting, no abdominal pain, no diarrhea, no leg swelling, patient had been using her inhalers at home with no improvement has had poor per orally intake as well. in emergency room patient oxygen saturation was in the mid 80s range was placed on 2 L of oxygen by nasal cannula. Patient is been admitted for further evaluation management and treatment. EXAMINATION: XR chest 2V DATE: 04/04/2023 18:05 INDICATION: Shortness of breath. TECHNIQUE: Frontal and lateral views of the chest were obtained. COMPARISON: Chest single view 11/30/2022 FINDINGS: There are lucencies in the lungs, consistent with emphysema. A calcified right lung nodule is consistent with old granulomatous disease. No pleural effusion or pneumothorax. The heart size is normal. Epidural electrodes are noted. IMPRESSION: 1. Emphysema. Review of Systems Review of Systems: Shortness of breath, cough productive of yellowish to greenish sputum Constitutional: Constitutional: Denies chills, Reports fatigue, Denies fever(s), Denies night sweats and Reports poor appetite Eyes: Eyes: Denies change in vision ENT: Denies dysphagia, Denies vertigo, Denies dizziness and Denies odynophagia Cardiovascular: Cardiovascular: Denies chest pain, Denies leg edema, Denies radiating jaw, neck or arm pain and Denies palpitations Respiratory: Respiratory: Reports change in phlegm color, Reports chest congestion, Reports cough, Reports excessive phlegm production, Reports dyspnea and Reports wheezing Gastrointestinal: Gastrointestinal: Denies abdominal pain, Denies dyspepsia, Denies heartburn, Denies diarrhea, Denies nausea and Denies vomiting Genitourinary: Genitourinary: Denies dysuria Musculoskeletal: Musculoskeletal: Reports back pain Integumentary/Breasts: Skin/Breast: Denies rash Neurologic: Denies focal weakness and Denies Sensory deficit (Neuro) Psychiatric: Psychiatric: Reports no additional psychiatric complaints and Reports as per HPI Endocrine: Endocrine: Denies cold intolerance, Denies fatigue, Denies flushing, Denies heat intolerance, Denies polyphagia, Denies polydipsia and Denies palpitations Hematologic/Lymphatic: Hematologic/Lymphatic: Reports no additional hematologic/lymphatic complaints and Reports as per HPI Allergic/Immunologic: Allergic/Immunologic: Reports no additional allergic/immunologic complaints and Reports as per HPI PMFSH Past Medical History Medical History Anxiety Arthritis Bipolar disorder Cataract Chronic back pain Chronic coccygeal pain Chronic, continuous use of opioids Degenerative joint disease Depression Emphysema with chronic bronchitis Esophagitis with gastritis Essential hypertension Hyperlipidemia Hypothyroidism Malnutrition of moderate degree Peripheral neuropathy Tobacco dependence Tremors of nervous system Type 2 diabetes mellitus Surgical History Surgical History History of appendectomy History of bunionectomy History of spinal surgery History of tonsillectomy and adenoidectomy History of total hysterectomy with bilateral salpingo-oophorectomy (BSO) Family History Family History Father , At age 90 Diabetes mellitus Kidney disease Mother , At age 80 Heart disease Social History Social History Social History: Surrogate medical decision maker: Code status: Full code.
--- NOTE | 2023-04-05 01:50 | ADMGEN ---
This patient, Mirian Coe, was admitted to [facility] Surg Room 314-02. Patient/family oriented to hospital policies and general routines including ID bracelet, bed and alarms, visiting hours, pain management, procedures, bathroom and other care routines, personal items, smoking policy, room service/diet, and visiting hours. Information on how to activate the Rapid Response Team has been discussed. Patient/Family are encouraged to report perceived risks to care and to ask questions if they do not understand what they are told or what they should do.
[2023-04-05] MEDS: cefTRIAXone 2 GM/NS 100 ML 2 GM/100 ML BAG IVPB (03:03)
[2023-04-05] MEDS: AZITHROMYCIN 500 MG/NS 250 ML 500 MG/250 ML BAG 250 MG IVPB (03:50)
[2023-04-05] MEDS: oxyCODONE/ACETAMINOPHEN (*CRX) 10-325 MG TABLET 1 TAB PO (04:19)
[2023-04-05] MEDS: methylPREDNISolone SOD SUCC 125 MG VIAL 60 MG IV PUSH ×3 (06:20→18:21)
[2023-04-05] MEDS: lamoTRIgine 50 MG TABLET 150 MG PO ×2 (06:21→18:21)
[2023-04-05] MEDS: IPRATROPIUM BR 0.02% INH SOLN 0.5 MG/2.5 ML VIAL INHALATION ×4 (07:08→20:09)
[2023-04-05] MEDS: ALBUTEROL SULFATE NEB 2.5 MG/3 ML INH INHALATION ×4 (07:08→20:09)
--- NOTE | 2023-04-05 07:16 | PM.IMPN ---
Progress Note: A&P Assessment and Plan (1) COPD exacerbation: Code(s): J44.1 - Chronic obstructive pulmonary disease with (acute) exacerbation Status: Acute Assessment and Plan: admit to med tele breathing treatments q.4 hours systemic steroids Rocephin and Zithromax continuous pulse ox (2) Acute respiratory failure with hypoxia: Code(s): J96.01 - Acute respiratory failure with hypoxia Status: Acute Assessment and Plan: currently on supplemental oxygen 2 L by nasal cannula does not usually use oxygen at home try and keep oxygen saturation at > 92% (3) Chronic back pain: Qualifiers: Back pain laterality: midline Back pain location: low back pain Sciatica presence: unspecified whether sciatica present Qualified Code(s): M54.50 - Low back pain, unspecified; G89.29 - Other chronic pain Code(s): M54.9 - Dorsalgia, unspecified; G89.29 - Other chronic pain Status: Chronic Assessment and Plan: Restarted home gabapentin Tylenol as needed (4) Tobacco dependence: Code(s): F17.200 - Nicotine dependence, unspecified, uncomplicated Status: Chronic Assessment and Plan: nicotine patch certified drug counselor on cessation Subjective Date/time seen: 04/05/23 07:16 Interval history: HPI obtained from chart, This is a 72-year-old female with past medical history significant for tobacco dependence, COPD / emphysema, patient presents to the emergency room due to worsening shortness of breaths for the last week or so cough productive of yellow lesion greenish sputum, no fevers no rigors no chills, no nausea, no vomiting, no abdominal pain, no diarrhea, no leg swelling, patient had been using her inhalers at home with no improvement has had poor per orally intake as well. in emergency room patient oxygen saturation was in the mid 80s range was placed on 2 L of oxygen by nasal cannula.? Patient is been admitted for further evaluation management and treatment. 04/05: Is a very pleasant 72 old female here with COPD exacerbation and possible pneumonia. She reports progressive shortness of breath over the last few days with increased production of sputum yellow in color, and increased dyspnea with exertion. She denies fever chills overnight. She does state that she is feeling better today after starting antibiotics and steroids. She says that she normally does not wear oxygen at home. Currently she was requiring 2 L per nasal cannula. I walked her to the bathroom without her oxygen in bed time she got back to bed she was clearly short of breath and her oxygen saturations were decreased. Besides her shortness of breath cough she has no other symptoms or complaints at this time. She is tolerating a diet and voiding appropriately. She did mention she has dry eyes and is asking for her eye drops. Review of Systems Review of Systems: All systems reviewed & are unremarkable except as noted in HPI and below Exam Narrative: General: chronically ill appearing, well developed, well nourished, appears stated age. HEENT: normocephalic, atraumatic. Mucous membranes moist. EOMI, PERRLA, bilateral sclera anicteric, no conjunctival injection. Neck supple without JVD, lymphadenopathy, or bruit. [place]. Respiratory: coarse and diminished bilaterally with expiratory wheeze. No rales/rhonic. Cardiovascular: Regular rate and rhythm, normal S1-S2 upon auscultation. No murmurs, rubs, or clicks. PMI is nondisplaced, capillary re-fill less than 3 second. Abdomen: Soft, flat, no pulsatile masses, non-distended and non-tender. No rebound, no guarding. No CVA tenderness, no hepatosplenomegaly. Bowel sounds present to all four quadrants. No high pitch or tinkling sounds, resonant to percussion. Extremities: No cyanosis, clubbing, or edema present. Dependent rubor with dry, flaky skin. Pulses are palpable 2/2. Active ROM to all four extremities. Neuro: Alert and orientated x 4. PERRLA. Crani
[2023-04-05 07:58] LABS: Basophils Percent Auto 0.3 % (0.2-1.2); Hematocrit 36.2 % (37.0-47.0); Hemoglobin 11.1 g/dL (12.0-15.0); Immature Granulocyte Absolute 0.02 K/mm3 (0.00-0.031); Immature Granulocyte Percent A 0.6 % (0-0.5); Lymphocytes Absolute Auto 0.52 K/mm3 (0.9-3.2); Lymphocytes Percent Auto 16.5 % (18.3-44.2); Mean Corpuscular HGB Conc 30.7 g/dl (32-36); Mean Corpuscular Hemoglobin 31.7 pg (26-34); Mean Corpuscular Volume 103.4 fl (80-100); Mean Platelet Volume 9.9 fl (7.4-10.4); Monocytes Absolute Auto 0.1 K/mm3 (0.1-0.6); Monocytes Percent Auto 4.4 % (2.6-8.5); Neutrophils Absolute Auto 2.5 K/mm3 (1.3-6.7); Neutrophils Percent Auto 78.2 % (45.5-73.1); Platelet Count Result 127 k/mm3 (150-375); Red Cell Distribution Width 13.2 % (11.5-14.5); White Blood Count 3.2 K/mm3 (4.5-10.0)
[2023-04-05 08:10] LABS: Alanine Aminotransferase 18 U/L (6-35); Albumin Level 3.5 g/dL (3.5-5.1); Alkaline Phosphatase 104 U/L (38-126); Anion Gap 6 mmol/L (8-16); Aspartate Amino Transferase 23 U/L (14-36); Bilirubin,Total 0.2 mg/dL (0.2-1.3); Blood Urea Nitrogen 21 mg/dL (7-17); Carbon Dioxide 26 mmol/L (22-30); Chloride 107 mmol/L (98-107); Estimated CRCL calculation 45 ml/min; Estimated Glomerular Filt Rate > 60; Glucose 202 mg/dL (65-110); Potassium 4.7 mmol/L (3.4-5.0); Sodium 139 mmol/L (137-145)
[2023-04-05] MEDS: MORPHINE SULFATE (*CRX) 15 MG TABCR PO ×3 (09:01→16:00)
[2023-04-05] MEDS: GABAPENTIN 100 MG CAPSULE PO ×3 (09:01→16:00)
[2023-04-05] MEDS: ENOXAPARIN 40 MG/0.4 ML SYRINGE SUB-Q (09:01)
[2023-04-05] MEDS: ASPIRIN 81 MG ENTERIC TABLET PO (09:01)
[2023-04-05] MEDS: polyethylene glycoL 3350 17 GM POWD.PACK PO (09:02)
[2023-04-05] MEDS: TOPIRAMATE 25 MG TABLET PO ×3 (09:02→16:00)
[2023-04-05] MEDS: CITALOPRAM HYDROBROMIDE 20 MG TABLET PO (09:02)
[2023-04-05] MEDS: PROPRANOLOL HCL 20 MG TABLET PO (12:11)
[2023-04-05] MEDS: oxyCODONE/ACETAMINOPHEN (*CRX) 5-325 MG TABLET 1 TABLET PO (18:20)
[2023-04-05] MEDS: ARTIFICIAL TEARS OPHTH SOLN 15 ML BOTTLE 1 DROP EACH EYE (18:20)
[2023-04-05] MEDS: ATORVASTATIN 20 MG TABLET PO (20:47)
[2023-04-05] MEDS: LEVOTHYROXINE SODIUM 100 MCG TABLET PO (20:47)
[2023-04-06] VITALS (17 sets, daily range): BP systolic 136–164; BP diastolic 59–67; PULSE 57–72; RESP 14–20; TEMP 35.7–36.9; O2SAT 92–96
[2023-04-06] MEDS: IPRATROPIUM BR 0.02% INH SOLN 0.5 MG/2.5 ML VIAL INHALATION ×5 (00:30→20:07)
[2023-04-06] MEDS: ALBUTEROL SULFATE NEB 2.5 MG/3 ML INH INHALATION ×5 (00:30→20:07)
[2023-04-06] MEDS: oxyCODONE/ACETAMINOPHEN (*CRX) 5-325 MG TABLET 1 TABLET PO ×4 (01:12→21:10)
[2023-04-06] MEDS: methylPREDNISolone SOD SUCC 125 MG VIAL 60 MG IV PUSH ×4 (01:12→17:21)
[2023-04-06] MEDS: cefTRIAXone 2 GM/NS 100 ML 2 GM/100 ML BAG IVPB (01:12)
[2023-04-06] MEDS: AZITHROMYCIN 500 MG/NS 250 ML 500 MG/250 ML BAG 250 MG IVPB (02:31)
[2023-04-06] MEDS: lamoTRIgine 50 MG TABLET 150 MG PO ×2 (05:21→17:56)
--- NOTE | 2023-04-06 05:49 | PC.NURSE ---
This nurse has reviewed Allie Akers's (license pending) charting and agrees with all entries for 04-05-23 and 04-06-23.
[2023-04-06 06:22] LABS: Hematocrit 37.3 % (37.0-47.0); Hemoglobin 11.5 g/dL (12.0-15.0); Immature Granulocyte Absolute 0.04 K/mm3 (0.00-0.031); Immature Granulocyte Percent A 0.4 % (0-0.5); Lymphocytes Absolute Auto 0.57 K/mm3 (0.9-3.2); Lymphocytes Percent Auto 5.8 % (18.3-44.2); Mean Corpuscular HGB Conc 30.8 g/dl (32-36); Mean Corpuscular Hemoglobin 31.3 pg (26-34); Mean Corpuscular Volume 101.6 fl (80-100); Mean Platelet Volume 9.7 fl (7.4-10.4); Monocytes Absolute Auto 0.2 K/mm3 (0.1-0.6); Monocytes Percent Auto 1.7 % (2.6-8.5); Neutrophils Percent Auto 92.1 % (45.5-73.1); Platelet Count Result 135 k/mm3 (150-375); Red Blood Count 3.67 M/mm3 (4.2-5.4); Red Cell Distribution Width 12.8 % (11.5-14.5); White Blood Count 9.8 K/mm3 (4.5-10.0)
[2023-04-06 06:44] LABS: Alanine Aminotransferase 18 U/L (6-35); Albumin Level 3.8 g/dL (3.5-5.1); Alkaline Phosphatase 103 U/L (38-126); Anion Gap 7 mmol/L (8-16); Aspartate Amino Transferase 21 U/L (14-36); Bilirubin,Total 0.2 mg/dL (0.2-1.3); Blood Urea Nitrogen 26 mg/dL (7-17); Calcium 10.7 mg/dL (8.4-10.2); Carbon Dioxide 24 mmol/L (22-30); Chloride 106 mmol/L (98-107); Estimated CRCL calculation 45 ml/min; Estimated Glomerular Filt Rate > 60; Glucose 236 mg/dL (65-110); Magnesium 1.7 mg/dL (1.6-2.3); Potassium 4.7 mmol/L (3.4-5.0); Sodium 137 mmol/L (137-145)
--- NOTE | 2023-04-06 08:32 | PM.IMPN ---
Progress Note: A&P Assessment and Plan (1) COPD exacerbation: Code(s): J44.1 - Chronic obstructive pulmonary disease with (acute) exacerbation Status: Acute Assessment and Plan: admit to med tele breathing treatments q.4 hours systemic steroids Rocephin and Levaquin for pseudomonas coverage. Low risk for MRSA. continuous pulse ox (2) Acute respiratory failure with hypoxia: Code(s): J96.01 - Acute respiratory failure with hypoxia Status: Acute Assessment and Plan: currently on supplemental oxygen 2 L by nasal cannula does not usually use oxygen at home try and keep oxygen saturation at > 92% (3) Chronic back pain: Qualifiers: Back pain laterality: midline Back pain location: low back pain Sciatica presence: unspecified whether sciatica present Qualified Code(s): M54.50 - Low back pain, unspecified; G89.29 - Other chronic pain Code(s): M54.9 - Dorsalgia, unspecified; G89.29 - Other chronic pain Status: Chronic Assessment and Plan: Restarted home gabapentin Tylenol as needed (4) Tobacco dependence: Code(s): F17.200 - Nicotine dependence, unspecified, uncomplicated Status: Chronic Assessment and Plan: nicotine patch pediatric genetic counselor on cessation Plan Feeding:heart healthy diet Analgesia:Percocet and Lyrica Thromboembolic prophylaxis: lovenox Ulcer prophylaxis: Not indicated Glycemic control: N/A Bowel regimen: Enema 04/06, scheduled colace and miralax Lines: PIV Antibiotics: Rocephin and Levaquin Subjective Date/time seen: 04/06/23 08:32 Interval history: HPI obtained from chart, This is a 72-year-old female with past medical history significant for tobacco dependence, COPD / emphysema, patient presents to the emergency room due to worsening shortness of breaths for the last week or so cough productive of yellow lesion greenish sputum, no fevers no rigors no chills, no nausea, no vomiting, no abdominal pain, no diarrhea, no leg swelling, patient had been using her inhalers at home with no improvement has had poor per orally intake as well. in emergency room patient oxygen saturation was in the mid 80s range was placed on 2 L of oxygen by nasal cannula.? Patient is been admitted for further evaluation management and treatment. 04/05: Is a very pleasant 72 old female here with COPD exacerbation and possible pneumonia. She reports progressive shortness of breath over the last few days with increased production of sputum yellow in color, and increased dyspnea with exertion. She denies fever chills overnight. She does state that she is feeling better today after starting antibiotics and steroids. She says that she normally does not wear oxygen at home. Currently she was requiring 2 L per nasal cannula. I walked her to the bathroom without her oxygen in bed time she got back to bed she was clearly short of breath and her oxygen saturations were decreased. Besides her shortness of breath cough she has no other symptoms or complaints at this time. She is tolerating a diet and voiding appropriately. She did mention she has dry eyes and is asking for her eye drops. 04/06: Patient is resting in bed. She is still requiring oxygen and having expiratory wheezes bilaterally. She is feeling better than previous day but is still short of breath and having increased cough. She also complains of being constipated and is asking for an enema. Will continue with her IV antibiotics, nebulizers, and supplemental oxygen to keep oxygen saturation greater than 90%. Review of Systems Review of Systems: All systems reviewed & are unremarkable except as noted in HPI and below Exam Narrative: General: chronically ill appearing, well developed, well nourished, appears stated age. HEENT: normocephalic, atraumatic. Mucous membranes moist. EOMI, PERRLA, bilateral sclera anicteric, no conjunctival injection. Neck supple without JVD, lymphadenopathy, or b
[2023-04-06] MEDS: ASPIRIN 81 MG ENTERIC TABLET PO (08:52)
[2023-04-06] MEDS: ENOXAPARIN 40 MG/0.4 ML SYRINGE SUB-Q (08:53)
[2023-04-06] MEDS: CITALOPRAM HYDROBROMIDE 20 MG TABLET PO (08:53)
[2023-04-06] MEDS: PROPRANOLOL HCL 20 MG TABLET PO ×2 (08:53→17:22)
[2023-04-06] MEDS: GABAPENTIN 100 MG CAPSULE PO ×3 (08:54→17:21)
[2023-04-06] MEDS: TOPIRAMATE 25 MG TABLET PO ×3 (08:54→17:22)
[2023-04-06] MEDS: polyethylene glycoL 3350 17 GM POWD.PACK PO (08:55)
[2023-04-06] MEDS: ARTIFICIAL TEARS OPHTH SOLN 15 ML BOTTLE 1 DROP EACH EYE ×3 (08:55→15:35)
[2023-04-06] MEDS: levoFLOXacin 750 MG/D5W 150 ML 750 MG/150 ML BAG 100 MG IVPB (08:59)
[2023-04-06] MEDS: DOCUSATE SODIUM 100 MG CAPSULE PO ×2 (08:59→21:10)
[2023-04-06] MEDS: DOCUSATE SODIUM 400 MG/400 ML ENEMA RECTAL (14:49)
[2023-04-06] MEDS: MORPHINE SULFATE (*CRX) 15 MG TABCR PO (17:22)
[2023-04-06] MEDS: ATORVASTATIN 20 MG TABLET PO (21:10)
[2023-04-06] MEDS: LEVOTHYROXINE SODIUM 100 MCG TABLET PO (21:10)
[2023-04-07] VITALS (23 sets, daily range): BP systolic 142–197; BP diastolic 52–92; PULSE 51–64; RESP 12–18; TEMP 35.7–36.6; O2SAT 93–100
[2023-04-07] MEDS: methylPREDNISolone SOD SUCC 125 MG VIAL 60 MG IV PUSH ×2 (00:17→05:33)
[2023-04-07] MEDS: cefTRIAXone 2 GM/NS 100 ML 2 GM/100 ML BAG IVPB (02:23)
[2023-04-07] MEDS: oxyCODONE/ACETAMINOPHEN (*CRX) 5-325 MG TABLET 1 TABLET PO ×3 (05:33→20:15)
[2023-04-07 05:55] LABS: Basophils Percent Auto 0.1 % (0.2-1.2); Hematocrit 40.1 % (37.0-47.0); Hemoglobin 12.6 g/dL (12.0-15.0); Immature Granulocyte Absolute 0.11 K/mm3 (0.00-0.031); Lymphocytes Absolute Auto 0.67 K/mm3 (0.9-3.2); Lymphocytes Percent Auto 5.8 % (18.3-44.2); Mean Corpuscular HGB Conc 31.4 g/dl (32-36); Mean Corpuscular Volume 101.8 fl (80-100); Mean Platelet Volume 9.7 fl (7.4-10.4); Monocytes Absolute Auto 0.2 K/mm3 (0.1-0.6); Monocytes Percent Auto 1.9 % (2.6-8.5); Neutrophils Absolute Auto 10.5 K/mm3 (1.3-6.7); Neutrophils Percent Auto 91.2 % (45.5-73.1); Platelet Count Result 154 k/mm3 (150-375); Red Blood Count 3.94 M/mm3 (4.2-5.4); Red Cell Distribution Width 13.1 % (11.5-14.5); White Blood Count 11.5 K/mm3 (4.5-10.0)
[2023-04-07 06:12] LABS: Anion Gap 10 mmol/L (8-16); Blood Urea Nitrogen 31 mg/dL (7-17); Calcium 10.9 mg/dL (8.4-10.2); Carbon Dioxide 25 mmol/L (22-30); Chloride 103 mmol/L (98-107); Estimated CRCL calculation 50 ml/min; Estimated Glomerular Filt Rate > 60; Glucose 260 mg/dL (65-110); Magnesium 1.7 mg/dL (1.6-2.3); Potassium 4.4 mmol/L (3.4-5.0); Sodium 138 mmol/L (137-145)
[2023-04-07] MEDS: lamoTRIgine 50 MG TABLET 150 MG PO ×2 (06:25→18:05)
[2023-04-07] MEDS: ALBUTEROL SULFATE NEB 2.5 MG/3 ML INH INHALATION ×4 (07:48→23:14)
[2023-04-07] MEDS: IPRATROPIUM BR 0.02% INH SOLN 0.5 MG/2.5 ML VIAL INHALATION ×4 (07:48→23:14)
[2023-04-07] MEDS: ENOXAPARIN 40 MG/0.4 ML SYRINGE SUB-Q (08:27)
[2023-04-07] MEDS: PROPRANOLOL HCL 20 MG TABLET PO ×3 (08:27→18:05)
[2023-04-07] MEDS: DOCUSATE SODIUM 100 MG CAPSULE PO (08:27)
[2023-04-07] MEDS: GABAPENTIN 100 MG CAPSULE PO ×3 (08:27→17:02)
[2023-04-07] MEDS: TOPIRAMATE 25 MG TABLET PO ×3 (08:27→17:02)
[2023-04-07] MEDS: MORPHINE SULFATE (*CRX) 15 MG TABCR PO ×3 (08:27→17:02)
[2023-04-07] MEDS: ASPIRIN 81 MG ENTERIC TABLET PO (08:27)
[2023-04-07] MEDS: CITALOPRAM HYDROBROMIDE 20 MG TABLET PO (08:27)
[2023-04-07] MEDS: PHENYLEPH/SHARK OIL/MO/PETROL CREAM 26 GM 1 APPLIC RECTAL (08:28)
[2023-04-07] MEDS: polyethylene glycoL 3350 17 GM POWD.PACK PO (08:28)
--- NOTE | 2023-04-07 08:36 | PM.IMPN ---
Progress Note: A&P Assessment and Plan (1) COPD exacerbation: Code(s): J44.1 - Chronic obstructive pulmonary disease with (acute) exacerbation Status: Acute Assessment and Plan: admit to med tele breathing treatments q.4 hours Prednisone 60 mg PO daily. Switched from IVP Q 6. Having some increased blood pressures likely related to the steroids. Blood glucose is also elevated. Start SSI for tighter glucose control Rocephin and Levaquin for pseudomonas coverage. Low risk for MRSA. continuous pulse ox (2) Acute respiratory failure with hypoxia: Code(s): J96.01 - Acute respiratory failure with hypoxia Status: Acute Assessment and Plan: currently on supplemental oxygen 2 L by nasal cannula does not usually use oxygen at home try and keep oxygen saturation at > 92% Please wean as tolerated. (3) Chronic back pain: Qualifiers: Back pain laterality: midline Back pain location: low back pain Sciatica presence: unspecified whether sciatica present Qualified Code(s): M54.50 - Low back pain, unspecified; G89.29 - Other chronic pain Code(s): M54.9 - Dorsalgia, unspecified; G89.29 - Other chronic pain Status: Chronic Assessment and Plan: Restarted home gabapentin Tylenol as needed (4) Tobacco dependence: Code(s): F17.200 - Nicotine dependence, unspecified, uncomplicated Status: Chronic Assessment and Plan: nicotine patch herb counselor on cessation Plan Feeding:heart healthy diet Analgesia:Percocet and Lyrica Thromboembolic prophylaxis: lovenox Ulcer prophylaxis: Not indicated Glycemic control: N/A Bowel regimen: Enema 04/06, scheduled colace and miralax Lines: PIV Antibiotics: Rocephin and Levaquin Subjective Date/time seen: 04/07/23 08:36 Interval history: HPI obtained from chart, This is a 72-year-old female with past medical history significant for tobacco dependence, COPD / emphysema, patient presents to the emergency room due to worsening shortness of breaths for the last week or so cough productive of yellow lesion greenish sputum, no fevers no rigors no chills, no nausea, no vomiting, no abdominal pain, no diarrhea, no leg swelling, patient had been using her inhalers at home with no improvement has had poor per orally intake as well. in emergency room patient oxygen saturation was in the mid 80s range was placed on 2 L of oxygen by nasal cannula.? Patient is been admitted for further evaluation management and treatment. 04/05: Is a very pleasant 72 old female here with COPD exacerbation and possible pneumonia. She reports progressive shortness of breath over the last few days with increased production of sputum yellow in color, and increased dyspnea with exertion. She denies fever chills overnight. She does state that she is feeling better today after starting antibiotics and steroids. She says that she normally does not wear oxygen at home. Currently she was requiring 2 L per nasal cannula. I walked her to the bathroom without her oxygen in bed time she got back to bed she was clearly short of breath and her oxygen saturations were decreased. Besides her shortness of breath cough she has no other symptoms or complaints at this time. She is tolerating a diet and voiding appropriately. She did mention she has dry eyes and is asking for her eye drops. 04/06: Patient is resting in bed. She is still requiring oxygen and having expiratory wheezes bilaterally. She is feeling better than previous day but is still short of breath and having increased cough. She also complains of being constipated and is asking for an enema. Will continue with her IV antibiotics, nebulizers, and supplemental oxygen to keep oxygen saturation greater than 90%. 04/07: No acute events overnight. Attempting to wean oxygen today. Patient states she is still having wheezing and shortness of breath with activity. Her cough seems to have decreased. She was able nevarez
[2023-04-07 12:00] LABS: Glucose Point of Care 375 mg/dl (65-105)
[2023-04-07] MEDS: INSULIN ASPART (*BKC) 100 UNITS/ML SUB-Q (12:19)
[2023-04-07 17:36] LABS: Glucose Point of Care 141 mg/dl (65-105)
[2023-04-07] MEDS: ATORVASTATIN 20 MG TABLET PO (20:15)
[2023-04-07] MEDS: LEVOTHYROXINE SODIUM 100 MCG TABLET PO (20:15)
[2023-04-07] MEDS: hydrALAZINE HCL 20 MG/ML VIAL 10 MG IV PUSH (21:20)
[2023-04-07 21:51] LABS: Glucose Point of Care 188 mg/dl (65-105)
[2023-04-08] VITALS (8 sets, daily range): BP systolic 143–144; BP diastolic 59–65; PULSE 52–104; RESP 14–18; TEMP 36.4–37.1; O2SAT 88–96
[2023-04-08] MEDS: cefTRIAXone 2 GM/NS 100 ML 2 GM/100 ML BAG IVPB (02:28)
[2023-04-08] MEDS: lamoTRIgine 50 MG TABLET 150 MG PO (05:49)
[2023-04-08] MEDS: oxyCODONE/ACETAMINOPHEN (*CRX) 5-325 MG TABLET 1 TABLET PO ×2 (05:49→13:03)
[2023-04-08 06:50] LABS: Basophils Percent Auto 0.1 % (0.2-1.2); Eosinophils Percent Auto 0.3 % (0-4.4); Hematocrit 42.9 % (37.0-47.0); Hemoglobin 13.4 g/dL (12.0-15.0); Immature Granulocyte Absolute 0.04 K/mm3 (0.00-0.031); Immature Granulocyte Percent A 0.4 % (0-0.5); Lymphocytes Absolute Auto 2.17 K/mm3 (0.9-3.2); Lymphocytes Percent Auto 24.1 % (18.3-44.2); Mean Corpuscular HGB Conc 31.2 g/dl (32-36); Mean Corpuscular Hemoglobin 31.9 pg (26-34); Mean Corpuscular Volume 102.1 fl (80-100); Mean Platelet Volume 9.6 fl (7.4-10.4); Monocytes Absolute Auto 0.9 K/mm3 (0.1-0.6); Monocytes Percent Auto 9.6 % (2.6-8.5); Neutrophils Absolute Auto 5.9 K/mm3 (1.3-6.7); Neutrophils Percent Auto 65.5 % (45.5-73.1); Platelet Count Result 154 k/mm3 (150-375); Red Cell Distribution Width 13.2 % (11.5-14.5)
[2023-04-08 07:18] LABS: Alanine Aminotransferase 19 U/L (6-35); Albumin Level 3.7 g/dL (3.5-5.1); Alkaline Phosphatase 106 U/L (38-126); Anion Gap 3 mmol/L (8-16); Aspartate Amino Transferase 20 U/L (14-36); Bilirubin,Total 0.3 mg/dL (0.2-1.3); Blood Urea Nitrogen 30 mg/dL (7-17); Calcium 10.7 mg/dL (8.4-10.2); Carbon Dioxide 29 mmol/L (22-30); Chloride 106 mmol/L (98-107); Estimated CRCL calculation 41 ml/min; Estimated Glomerular Filt Rate 54; Glucose 158 mg/dL (65-110); Magnesium 1.8 mg/dL (1.6-2.3); Potassium 4.9 mmol/L (3.4-5.0); Sodium 138 mmol/L (137-145)
[2023-04-08 08:06] LABS: Glucose Point of Care 161 mg/dl (65-105)
--- NOTE | 2023-04-08 08:20 | PCRCNOTE ---
Pt refusing respiratory treatments.
--- NOTE | 2023-04-08 09:28 | PM.IMPN ---
Progress Note: A&P Assessment and Plan (1) COPD exacerbation: Code(s): J44.1 - Chronic obstructive pulmonary disease with (acute) exacerbation Status: Acute Assessment and Plan: admit to med tele breathing treatments PRN albuterol and bromide Prednisone 60 mg PO daily. Switched from IVP Q 6. Having some increased blood pressures likely related to the steroids. Blood pressures improved today 04/08. Start SSI for tighter glucose control Levaquin abx continuous pulse ox (2) Acute respiratory failure with hypoxia: Code(s): J96.01 - Acute respiratory failure with hypoxia Status: Acute Assessment and Plan: currently on supplemental oxygen 2 L by nasal cannula does not usually use oxygen at home try and keep oxygen saturation at > 92% Please wean as tolerated. (3) Chronic back pain: Qualifiers: Back pain location: low back pain Back pain laterality: midline Sciatica presence: unspecified whether sciatica present Qualified Code(s): M54.50 - Low back pain, unspecified; G89.29 - Other chronic pain Code(s): M54.9 - Dorsalgia, unspecified; G89.29 - Other chronic pain Status: Chronic Assessment and Plan: Restarted home gabapentin Tylenol as needed (4) Tobacco dependence: Code(s): F17.200 - Nicotine dependence, unspecified, uncomplicated Status: Chronic Assessment and Plan: nicotine patch tariff counsel on cessation Plan Feeding:heart healthy diet Analgesia:Percocet and Lyrica Thromboembolic prophylaxis: lovenox Ulcer prophylaxis: Not indicated Glycemic control: N/A Bowel regimen: Enema 04/06, scheduled colace and miralax Lines: PIV Antibiotics: Levaquin Subjective Date/time seen: 04/08/23 09:28 Interval history: HPI obtained from chart, This is a 72-year-old female with past medical history significant for tobacco dependence, COPD / emphysema, patient presents to the emergency room due to worsening shortness of breaths for the last week or so cough productive of yellow lesion greenish sputum, no fevers no rigors no chills, no nausea, no vomiting, no abdominal pain, no diarrhea, no leg swelling, patient had been using her inhalers at home with no improvement has had poor per orally intake as well. in emergency room patient oxygen saturation was in the mid 80s range was placed on 2 L of oxygen by nasal cannula.? Patient is been admitted for further evaluation management and treatment. 04/05: Is a very pleasant 72 old female here with COPD exacerbation and possible pneumonia. She reports progressive shortness of breath over the last few days with increased production of sputum yellow in color, and increased dyspnea with exertion. She denies fever chills overnight. She does state that she is feeling better today after starting antibiotics and steroids. She says that she normally does not wear oxygen at home. Currently she was requiring 2 L per nasal cannula. I walked her to the bathroom without her oxygen in bed time she got back to bed she was clearly short of breath and her oxygen saturations were decreased. Besides her shortness of breath cough she has no other symptoms or complaints at this time. She is tolerating a diet and voiding appropriately. She did mention she has dry eyes and is asking for her eye drops. 04/06: Patient is resting in bed. She is still requiring oxygen and having expiratory wheezes bilaterally. She is feeling better than previous day but is still short of breath and having increased cough. She also complains of being constipated and is asking for an enema. Will continue with her IV antibiotics, nebulizers, and supplemental oxygen to keep oxygen saturation greater than 90%. 04/07: No acute events overnight. Attempting to wean oxygen today. Patient states she is still having wheezing and shortness of breath with activity. Her cough seems to have decreased. She was able have a bowel movement yesterday after the kris
[2023-04-08] MEDS: PHENYLEPH/SHARK OIL/MO/PETROL CREAM 26 GM 1 APPLIC RECTAL (09:59)
[2023-04-08] MEDS: DOCUSATE SODIUM 100 MG CAPSULE PO (10:01)
[2023-04-08] MEDS: MORPHINE SULFATE (*CRX) 15 MG TABCR PO ×3 (10:01→16:52)
[2023-04-08] MEDS: TOPIRAMATE 25 MG TABLET PO ×3 (10:02→16:52)
[2023-04-08] MEDS: ASPIRIN 81 MG ENTERIC TABLET PO (10:03)
[2023-04-08] MEDS: ENOXAPARIN 40 MG/0.4 ML SYRINGE SUB-Q (10:04)
[2023-04-08] MEDS: levoFLOXacin 750 MG/D5W 150 ML 750 MG/150 ML BAG 100 MG IVPB (10:05)
[2023-04-08 11:43] LABS: Glucose Point of Care 290 mg/dl (65-105)
[2023-04-08 11:56] LABS: Glucose Point of Care 266 mg/dl (65-105)
[2023-04-08] MEDS: INSULIN ASPART (*BKC) 100 UNITS/ML SUB-Q (11:57)
[2023-04-08] MEDS: PROPRANOLOL HCL 20 MG TABLET PO (12:08)
[2023-04-08] MEDS: GABAPENTIN 100 MG CAPSULE PO (13:03)
--- NOTE | 2023-04-08 15:00 | PM.DS ---
DS: Admitting Diagnosis Discharge Date 04/08/23 Admitting Diagnosis SOB DS: Discharge Diagnosis Discharge Diagnosis (1) COPD exacerbation: Code(s): J44.1 - Chronic obstructive pulmonary disease with (acute) exacerbation Status: Acute Assessment and Plan: ?admit to med tele ?breathing treatments q.4 hours ?Prednisone 60 mg PO daily. Switched from IVP Q 6. Having some increased blood pressures likely related to the steroids. Blood? glucose is also elevated. Start SSI for tighter glucose control ?Rocephin and Levaquin for pseudomonas coverage. Low risk for MRSA. ?continuous pulse ox (2) Acute respiratory failure with hypoxia: Code(s): J96.01 - Acute respiratory failure with hypoxia Status: Acute Assessment and Plan: currently on supplemental oxygen 2 L? by nasal cannula ?does not usually use oxygen at home ?try and keep oxygen saturation at > 92% Please wean as tolerated. (3) Chronic back pain: Qualifiers: Back pain location: low back pain Back pain laterality: midline Sciatica presence: unspecified whether sciatica present Qualified Code(s): M54.50 - Low back pain, unspecified; G89.29 - Other chronic pain Code(s): M54.9 - Dorsalgia, unspecified; G89.29 - Other chronic pain Status: Chronic (4) Tobacco dependence: Code(s): F17.200 - Nicotine dependence, unspecified, uncomplicated Status: Chronic Assessment and Plan: nicotine patch prenatal genetic counselor on cessation DS: Summary Hospital Course Hospital Course: This is a 72-year-old female with past medical history significant for tobacco dependence, COPD / emphysema, patient presents to the emergency room due to worsening shortness of breaths for the last week or so cough productive of yellow lesion greenish sputum, no fevers no rigors no chills, no nausea, no vomiting, no abdominal pain, no diarrhea, no leg swelling, patient had been using her inhalers at home with no improvement has had poor per orally intake as well. in emergency room patient oxygen saturation was in the mid 80s range was placed on 2 L of oxygen by nasal cannula.? Patient is been admitted for further evaluation management and treatment. 04/05:? Is a very pleasant 72 old female here with COPD exacerbation and possible pneumonia.? She reports progressive shortness of breath over the last few days with increased production of sputum yellow in color, and increased dyspnea with exertion.? She denies fever chills overnight.? She does state that she is feeling better today after starting antibiotics and steroids.? She says that she normally does not wear oxygen at home.? Currently she was requiring 2 L per nasal cannula.? I walked her to the bathroom without her oxygen in bed time she got back to bed she was clearly short of breath and her oxygen saturations were decreased.? Besides her shortness of breath cough she has no other symptoms or complaints at this time.? She is tolerating a diet and voiding appropriately.? She did mention she has dry eyes and is asking for her eye drops. 04/06:? Patient is resting in bed.? She is still requiring oxygen and having expiratory wheezes bilaterally.? She is feeling better than previous day but is still short of breath and having increased cough.? She also complains of being constipated and is asking for an enema.? Will continue with her IV antibiotics, nebulizers, and supplemental oxygen to keep oxygen saturation greater than 90%. 04/07:? No acute events overnight.? Attempting to wean oxygen today.? Patient states she is still having wheezing and shortness of breath with activity.? Her cough seems to have decreased.? She was able have a bowel movement yesterday after the enema.? She is complaining of vaginal dryness and is asking for some cream. 04/08: On room air sating appropriately. Patient states she is feeling much better today and she is ready to go home. She has no wheezing today and lung sounds are clear. Status at Discharge C
[2023-04-08] MEDS: predniSONE 20 MG TABLET 60 MG PO (15:19)
--- NOTE | 2023-04-08 16:28 | PCRCNOTE ---
HOME O2 EVAL COMPLETE. PATIENT DOES NOT REQUIRE HOME O2 AT THIS TIME.
[2023-04-08 16:57] LABS: Glucose Point of Care 183 mg/dl (65-105)
== END 2023-04-08 17:40 | disposition home health service (06) | DRG 190 ==
LOC: ANHED 04-05 00:15 → ANH3MEDSUR 04-05 01:07
PROVIDERS: Student in an Organized Health Care Education/Training Program; Admitting Provider Internal Medicine; Emergency Provider Emergency Medicine; PCP Internal Medicine; Visit Provider Nurse Practitioner Acute Care
DX: J43.9 Emphysema, unspecified (principal); J96.01 Acute respiratory failure with hypoxia; E46 Unspecified protein-calorie malnutrition; E11.42 Type 2 diabetes mellitus with diabetic polyneuropathy; E78.5 Hyperlipidemia, unspecified; E03.9 Hypothyroidism, unspecified; F41.9 Anxiety disorder, unspecified; F31.9 Bipolar disorder, unspecified; F17.210 Nicotine dependence, cigarettes, uncomplicated; G89.29 Other chronic pain; M54.9 Dorsalgia, unspecified; M19.90 Unspecified osteoarthritis, unspecified site; J42 Unspecified chronic bronchitis; I10 Essential (primary) hypertension; T38.0X5A Adverse effect of glucocorticoids and synthetic analogues, initial encounter; Z68.23 Body mass index [BMI] 23.0-23.9, adult; Z90.49 Acquired absence of other specified parts of digestive tract; Z90.710 Acquired absence of both cervix and uterus; Z20.822 Contact with and (suspected) exposure to COVID-19; Z79.82 Long term (current) use of aspirin; Z88.0 Allergy status to penicillin
CPT/HCPCS: 36415; 71046; 80048; 80053; 82948; 83735; 84145; 85025; 87637; 93005; 94618; 94640; 96365; 96366; 96367; 96372; 96375; 96376; 97162; 97165; 99285; A9270; G0378; J0360; J0456; J0696; J1100; J1650; J1815; J1956; J2930; J3475; J7030; J7512

== ENCOUNTER 2025-06-07 15:09 | Emergency (ER) | payer MEDICARE, SELFPAY ==
--- NOTE | ~2025-06-07 | US_ITS ---
US venous doppler LE LT INDICATION: Left lower extremity pain and swelling. COMPARISON: None. TECHNIQUE: The deep veins of the left lower extremity were evaluated with Duplex Doppler, color Doppler, and high-resolution B-mode sonography. Evaluated veins include the common femoral, femoral, and popliteal veins. The calf veins were also evaluated. Compression and augmentation maneuvers were performed. FINDINGS: The deep veins of the left lower extremity were compressible and demonstrated spontaneous phasic waveforms with an appropriate response to augmentation maneuvers. The visualized calf veins were patent. IMPRESSION: There was no sonographic evidence of deep vein thrombosis in the left lower extremity. Reviewed, dictated and finalized at location S. MS ADJUDICATOR IMPRESSION: There was no sonographic evidence of deep vein thrombosis in the left lower ext remity.
--- OUTSIDE RECORDS SUMMARY | 2025-06-07 15:11 | XMS_ITS | Encounter Summary ---
Author Organization [facility] Address [address] [place] [address] Phone Care Team Providers Care Bottle Washer Machine Name Role Phone Miguel Miranda MD Primary Care Provider [phone]- [phone] Encounter Details Date Type Department Care Team (Late st Contact Info) Description 05/17/2022 Orders Only [facility] [address] [place] [address] Scanning, Provider Social History Tobacco Use Types Packs/Day Years Used Date Smoking Tobacco: Some Days Cigarettes Smokeless Tobacco: Never Comments:Smoking History Pac ks/day: 1 Packs Alcohol Use Standard Drinks/Week Comments No 0 (1 standard drink = 0.6 oz pur e alcohol) PHQ-2 Answer Date Recorded PHQ-2 Total Score (If total score is 3 or more points, staff should administer the PHQ-9) 0 04/24/2022 Comments No Sex and Gender Information Value Date Recorded Sex Assigned at Not on file 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 Gender Identity Female 10/13/2020 3:08 PM CDT Sexual Orientation Choose not to disclose 2020 3:08 PM CDT documented as of this encounter Plan of Treatment Not on file documented as of this encounter Procedures Procedure Name Priority Date/Time Associated Diagnosis Comments SCAN - RADIOLOGY/IMAGING 05/17/2022 documented in this encounter Results * SCAN - RADIOLOGY/IMAGING (05/17/2022) Anatomical Region Laterality Modality Other us Provider Scanning Final Result documented in this encounter Visit Diagnoses Not on filedocumented in this encounter Additional Health Concerns Infection Onset Date Last Indicated Resolved Time COVID: Suspected 01/14/2023 01/14/2023 01/14/2023 10:34 PM CDT COVID: Suspected 04/25/2023 04/25/2023 04/25/2023 5:43 PM CDT documented as of this encounter Care Teams Bottle Washer Machine Relationship Specialty Start Date End Date Miguel Miranda MD PCP - General 10/26/16 documented as of this encounter
--- OUTSIDE RECORDS SUMMARY | 2025-06-07 15:11 | XMS_ITS | Encounter Summary ---
Author Organization [facility] Address [address] [place] [address] Phone Care Team Providers Care Commercial Lending Assistant Name Role Phone Miguel Miranda MD Primary Care Provider +1- [phone] Encounter Details Date Type Department Care Team (Late st Contact Info) Description 03/10/2020 Orders Only [facility] [address] [place] [address] Scanning, Provider Social History Tobacco Use Types Packs/Day Years Used Date Smoking Tobacco: Some Days Cigarettes Smokeless Tobacco: Never Comments:Smoking History Pac ks/day: 1 Packs Alcohol Use Standard Drinks/Week Comments No 0 (1 standard drink = 0.6 oz pur e alcohol) PHQ-2 Answer Date Recorded PHQ-2 Score 0 07/08/2019 Comments No Sex and Gender Information Value Date Recorded Sex Assigned at Not on file 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 Gender Identity Female 10/13/2020 3:08 PM CDT Sexual Orientation Choose not to disclose 2020 3:08 PM CDT documented as of this encounter Plan of Treatment Not on file documented as of this encounter Procedures Procedure Name Priority Date/Time Associated Diagnosis Comments SCAN - RADIOLOGY/IMAGING 03/10/2020 documented in this encounter Results * SCAN - RADIOLOGY/IMAGING (03/10/2020) Anatomical Region Laterality Modality Other us Provider Scanning Final Result documented in this encounter Visit Diagnoses Not on filedocumented in this encounter Additional Health Concerns Infection Onset Date Last Indicated Resolved Time COVID: Suspected 01/14/2023 01/14/2023 01/14/2023 10:34 PM CDT COVID: Suspected 04/25/2023 04/25/2023 04/25/2023 5:43 PM CDT documented as of this encounter Care Teams Commercial Lending Assistant Relationship Specialty Start Date End Date Miguel Miranda MD PCP - General 10/26/16 documented as of this encounter
--- OUTSIDE RECORDS SUMMARY | 2025-06-07 15:11 | XMS_ITS | Encounter Summary ---
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 ARTIST Gender Identity Female 10/13/2020 3:08 PM CDT Sexual Orientation Choose not to disclose 2020 3:08 PM CDT documented as of this encounter Plan of Treatment Not on file documented as of this encounter Procedures Procedure Name Priority Date/Time Associated Diagnosis Comments SCAN - RADIOLOGY/IMAGING 10/04/2020 documented in this encounter Results * SCAN - RADIOLOGY/IMAGING (10/04/2020) Anatomical Region Laterality Modality Other us Provider Scanning Edited Result - Final documented in this encounter Visit Diagnoses Not on filedocumented in this encounter Additional Health Concerns Infection Onset Date Last Indicated Resolved Time COVID: Suspected 01/14/2023 01/14/2023 01/14/2023 10:34 PM CDT COVID: Suspected 04/25/2023 04/25/2023 04/25/2023 5:43 PM CDT documented as of this encounter Care Teams Pricing Manager Relationship Specialty Start Date End Date Miguel Miranda MD PCP - General 10/26/16 documented as of this encounter
--- OUTSIDE RECORDS SUMMARY | 2025-06-07 15:11 | XMS_ITS | Encounter Summary ---
Author Organization [facility] Healthcare Address [address] [place] [address] Care Team Providers Care Cruller Maker Machine Name Role Phone Miguel Miranda MD Primary Care Provider +1- [phone] Reason for Visit * Reason Onset Date Comments left leg swollen 06/07/2025 Encounter Details Date Type Department Care Team (Late st Contact Info) Description 06/07/2025 Telephone [facility] Medical Group [facility] [address] [place] [address] Miguel Miranda MD [address] [address] left leg swollen Social History Tobacco Use Types Packs/Day Years Used Date Smoking Tobacco: Some Days Cigarettes 1 50 Smokeless Tobacco: Never Comments:Smoking History Pac ks/day: Patient unable to answer, cousin Rosalina answered unsure how much she smoked but it was over 50 plus years and thinks she only smoked occasionally Alcohol Use Standard Drinks/Week Comments No 0 (1 standard drink = 0.6 oz pur e alcohol) Social Connection and Isolation Panel Answer Date Recorded In a typical week, how many times do you talk on the phone with family, friends, or neighbors? Once a week 04/26/2023 How often do you get together with friends or re latives? Never 04/26/2023 How often do you attend latter day or orthodoxy serv ices? Never 04/26/2023 Do you belong to any clubs o r organizations such as latter day groups, unions, fraternal or athletic groups, or school groups? No 04/26/2023 How often do you attend meet ings of the clubs or organizations you belong to? Never 04/26/2023 Are you , , di vorced, , never , or living with a partner? 04/26/2023 AUDIT-C Answer Date Recorded Q1: How often do you have a drink containing alcohol? Never 04/25/2023 Q2: How many drinks containi ng alcohol do you have on a typical day when you are drinking? Patient does not drink Q3: How often do you have si x or more drinks on one occasion? Never 04/25/2023 Overall Financial Resource Strain (CARDIA) Answe r Date Recorded How hard is it for you to pa y for the very basics like food, housing, medical care, and heating? Not very hard 04/26/2023 PHQ-2 Answer Date Recorded PHQ-2 Total Score (If total score is 3 or more points, staff should administer the PHQ-9) 1 07/30/2024 Hunger Vital Sign Answer Date Recorded Within the past 12 months, y ou worried that your food would run out before you got the money to buy more. Never true 04/26/20 23 Within the past 12 months, t he food you bought just didn't last and you didn't have money to get more. Never true 04/26/2023 PRAPARE - Transportation Answer Date Re corded In the past 12 months, has l ack of transportation kept you from medical appointments or from getting medications? Yes 03/30 In the past 12 months, has l ack of transportation kept you from meetings, work, or from getting things needed for daily living? No 04/26/2023 Housing Stability Vital Sign Answer Tyler e Recorded In the last 12 months, was t here a time when you were not able to pay the mortgage or rent on time? No 04/26/2023 In the last 12 months, how many places have you lived? 1 04/26/2023 In the last 12 months, was t here a time when you did not have a steady place to sleep or slept in a half-way (including now)? No 04/26/2023 Personal Safety Answer Date Recorded Have you ever been in or are you currently in a harmful physical or emotional relationship or is someone making you feel afraid or unsafe? Denies 11/16/2024 Comments No Sex and Gender Information Value Date Recorded Sex Assigned at Not on file Legal Sex Female 1:28 PM RIPPLER Gender Identity Female 10/13/2020 3:08 PM CDT Sexual Orientation Choose not to disclose 2020 3:08 PM CDT documented as of this encounter Miscellaneous Notes * Telephone Encounter - Bekah Burgos RN - 06/07/2025 1:02 PM CST Spoke with Dr Miranda Please have the pt go to the er for a evaluation of the left leg and hematuria Pt will go to [facility] She will call us back with a progress report LER * Telephone Encounter - Bekah Burgos RN - 06/07/2025 11:57 AM RIPPLER Called and spoke with the pt She has had a very swollen left calf for over a week with pain in the ankle Pt states that it painful to touch She has had no chest pain She is always short of breath due to smoking She also urinated a lot of blood last Saturday and did so for 3 days Now the blood is gone visually in the urine She had no uti symptoms No fever Pt has no ride to the office Pt could get to [facility] to have labs completed LER * Telephone Encounter - Herminio Tejeda - 06/07/2025 11:16 AM CST Pt called in because for the past week her left calf has been swollen. Pt stated her calf is plump as a rip pumpkin. She stated if she touches it there is pain. Her left ankle is warm to the touch. Pt has a hard time using her compression socks. She is elevating it above her heart. She is sleeping on her back due to her leg. She passed a kidney stone 2 weeks ago. No SOB, no cold, and no UTI. Pt doesn't have a ride to come into the office at this time. CBN: [phone] Pharm: [facility] in [place] LER documented in this encounter Plan of Treatment Not on file documented as of this encounter Visit Diagnoses Not on filedocumented in this encounter Care Teams Cruller Maker Machine Relationship Specialty Start Date End Date Miguel Miranda MD PCP - General 10/26/16 documented as of this encounter
--- OUTSIDE RECORDS SUMMARY | 2025-06-07 15:11 | XMS_ITS | Clinical Summary ---
Author Organization [facility] Address [address] [place] [address] Care Team Providers Care Element Burner Name Role Phone Crow Miranda MD Primary Care Provider [phone] Allergies Active Allergy Reactions Criticality Noted Date Comments Cefaclor Hives,Urticaria Medium 06/21/2019 Erythromycin Urticaria Medium 06/21/2019 Levofloxacin Anaphylaxis High 10/30/2019 told her it would kill her Penicillins Rash Medium Medications gabapentin (NEURONTIN) 100 mg capsule Take by mouth 3 (three) times a day. Active lancets (ACCU-CHEK SOFTCLIX LANCETS) misc Test daily e 11.9 100 each 2 12/19/19 19 Active pen needle, diabetic (PEN NEEDLE) 31 gauge x 1/4 needle Inject 1 Dose under the skin 3 (three) times a day 100 each 3 12/27/19 19 Active topiramate (TOPAMAX) 25 mg tablet Take 2 tablets (50 mg total) by mouth 2 (two) times a day Take 1 to 4 tablets Active ascorbic acid (VITAMIN C) 500 mg tablet,chewable Take 1 tablet/chew tab (500 mg total) by mouth daily Active calcium citrate/vitamin D3 (CITRACAL + D MAXIMUM ORAL) Take 630 mg by mouth daily Active aspirin 81 mg enteric coated tablet Take 1 tablet (81 mg total) by mouth daily Active acetaminophen ER (TYLENOL) 650 mg 8 hr tablet Take 1 tablet (650 mg total) by mouth every 8 (eight) hours as needed for pain Active oxyCODONE-acetamin ophen (PERCOCET) 10-325 mg per tablet Take 1 tablet by mouth 3 (three) times a day as needed for pain 9 tablet 01/19/20 23 Active estrogens, conjugated, (PREMARIN) vaginal cream Apply 0.5 g topically daily 15 g 02/28/20 23 Active diphenoxylate-atro pine (LOMOTIL) 2.5-0.025 mg per tabletIndications: diarrhea Take 1 tablet by mouth 4 (four) times a day as needed for diarrhea 30 tablet 04/19/20 23 Active Additional Information Patient not taking.Reported on 03/01/2025 furosemide (LASIX) 20 mg tablet Take 1 tablet (20 mg total) by mouth daily 90 tablet 05/17/20 23 Active Additional Information Patient not taking.Reported on 03/01/2025 estrogens, conjugated, (PREMARIN) 0.3 mg tablet Take 1 tablet (0.3 mg total) by mouth daily Take daily for 21 days then do not take for 7 days. 90 tablet 02/07/20 24 Active Additional Information Patient not taking.Reported on 03/01/2025 levothyroxine (SYNTHROID) 75 mcg tabletIndications: Acquired hypothyroidism Take 1 tablet (75 mcg total) by mouth early childhood coordinator before breakfast 90 tablet 1 12/17/19 25 Active albuterol HFA (PROVENTIL HFA,VENTOLIN HFA,PROAIR HFA) 90 mcg/actuation inhalerIndications :Panlobular emphysema INHALE 2 PUFFS BY MOUTH EVERY 4 HOURS NEEDED FOR WHEEZING AND SHORTNESS OF BREATH 6.7 g 3 12/18/19 25 Active atorvastatin (LIPITOR) 20 mg tabletIndications: Mixed hyperlipidemia TAKE 1 TABLET BY MOUTH ONCE DAILY 90 tablet 1 02/02/20 25 Active fluticasone-umecli din-vilanter (Trelegy Ellipta) 200-62.5-25 mcg inhalerIndications :COPD (chronic obstructive pulmonary disease) with chronic bronchitis (HCC) Inhale 1 puff daily 60 each 2 03/01/20 25 Active citalopram (CeleXA) 20 mg tabletIndications: Bipolar affective disorder, current episode hypomanic (HCC) Take 1 tablet (20 mg total) by mouth daily 90 tablet 1 03/01/20 25 Active Xtampza ER 13.5 mg capsule,sprinkle,E R 12hr tmprr Take 1 capsule (13.5 mg total) by mouth every 12 (twelve) hours 02/18/20 25 Active propranoloL (INDERAL) 20 mg tabletIndications: Essential hypertension Take 1 tablet (20 mg total) by mouth daily 90 tablet 1 03/01/20 25 Active lamoTRIgine (LaMICtal) 100 mg tabletIndications: Bipolar affective disorder, current episode hypomanic (HCC) Take 1.5 tablets (150 mg total) by mouth daily 135 tablet 1 04/02/20 25 Active Active Problems Problem Noted Date Diagnosed Date Dysuria 07/31/2024 Assessment & Plan (07/31/2024 1:04 PM SALES ESTIMATOR): Dysuria episodic urinalysis negative Menopausal vaginal dryness 02/09/2024 Assessment & Plan (02/09/2024 12:28 PM CDT): Patient complains of considerable amount of dry in his advised to follow-up with health program manager I did write a prescription for her to get low-dose Premarin until she can get in see health program manager Cigarette smoker 02/09/2024 Assessment & Plan (03/01/2025 4:55 PM CDT): Nicotine addiction 1-2 packs a day 45 years. Patient thinks she is likely to quit smoking Assessment & Plan (02/09/2024 12:30 PM CDT): 50+ pack years of smoking smokes about 4 cigarettes a day at this time CT scan of the lung April 17, 2023 no longer showed any evidence for nodules or tumors not recommended she have a follow-up CT scan Hemorrhoids 10/02/2023 Assessment & Plan (02/09/2024 12:24 PM CDT): Hemorrhoids not an active problem at this time so last visit patient will consider colonoscopy in the future she is 73 years old previous colonoscopy over 5 years ago was normal Assessment & Plan (10/15/2023 1:47 PM CDT): Moderate symptoms, one benign external hemorrhoid/tag, based on her complaints (internal discomfort, and occasional blood on the tissue paper) likely grade 1-2 internal hemorrhoid. We discussed GI eval and intervention with colonoscopy to which she is understanding and agreeable. If this is unsuccessful we discussed follow up in our office to discuss hemorrhoidectomy Assessment & Plan (10/02/2023 11:29 AM SALES ESTIMATOR): Patient complains of hemorrhoidal pain almost daily she is doing inappropriate things with fiber diet. Utilizing stool softeners and suppositories. Have occasional bleeding plans refer to general surgery . Bilateral leg and foot pain 10/02/2023 Assessment & Plan (10/02/2023 12:35 PM SALES ESTIMATOR): Patient gives a very vague pain discomfort in both feet she does complain of some balance problems with her feet and she gives this description/rationale how certain inserts have helped her in the past I am refer her to Podiatry try to sort out what her real problems with her feet. Do not know much of his perception how much is rib and images part of her bipolar disorder contributing to her perception COPD (chronic obstructive pu lmonary disease) with chronic bronchitis 04/25/2023 Assessment & Plan (07/31/2024 1:01 PM SALES ESTIMATOR): Patient remains on Trelegy in very stable no exacerbation in the past year or hospitalizations. Assessment & Plan (02/09/2024 12:27 PM CDT): COPD is stable patient does not have shortness breath with routine activities she is maintained on albuterol p.r.n. trilogy 200/6.25 once daily as effective in controlling some Assessment & Plan (05/13/2023 8:49 PM CDT): Chronic issue, see recent hospitalization for exacerbation as noted above. Testing as outlined in HPI. Labs unremarkable. Lungs dim but clear on exam today, sating 93% on RA. Encouraged to find explosives mixer operator, call for referral if needed. Continue Trelegy and albuetrol as rxd. Avoid triggers, smoking cessation encouraged. Altered mental status, unspe cified altered mental status type 01/15/2023 Chronic UTI 04/25/2022 Bilateral lower extremity edema 12/22/2021 Assessment & Plan (05/27/2023 9:54 PM CDT): BP stable in office today on current therapy. BLE edema as noted above. No acute cardiac symptoms or findings on exam. ECHO last month showed EF of 70% with mild LVH, no valvular issues. PMH of COPD also noted. CT chest last month showed stable emphysema, no acute findings. Will add lasix 20mg daily. Continue low salt diet. Assessment & Plan (04/25/2022 1:25 PM CDT): Patient using furosemide every other day times every 3 days. Concerned about edema at times patient is reassured is no heart failure liver failure . Assessment & Plan (02/10/2022 4:56 PM CDT): Bilateral leg edema is now gone patient's weight is down 4 lb from December 152021, she has no shortness of breath echocardiogram results very good maybe I results were good. He change in therapy. Assessment & Plan (12/22/2021 12:23 PM CDT): Patient has persistent bilateral LE edema. May be secondary to venous insufficiency most likely. We will do labs today to look for any signs of anemia, renal dysfunction, electrolyte disturbance or elevated BNP suggestive of CHF. She was encouraged at this time to keep legs elevated and apply gentle compression. If renal function stable can consider a 3 day course of lasix. Hospital discharge follow-up 10/14/2020 Assessment & Plan (05/13/2023 8:46 PM CDT): See hospital details and testing as noted above in HPI. Med reconciliation completed in office today. No acute symptoms or findings on exam today. Encouraged to find explosives mixer operator near her, and call for referral if needed. Continue inhalers and medications as rxd. Avoid triggers, smoking cessation encouraged. Assessment & Plan (04/19/2023 5:42 PM CDT): Hospital follow-up patient is admitted to [facility] on 04/06/2023 discharge 04/08/2023. Reason for admission was exacerbation COPD. Patient is back to her baseline of functioning. Severe COPD she smoked 50 years at least 70 pack years. Recently stopped smoking last week. She is in no acute distress at this time she. Medication reconciliation completed. Assessment & Plan (02/16/2023 1:45 PM CDT): Hospital follow-up admission date 01/14/2023 discharge 01/18/2023 [facility] reason for admission altered mental status no identified cause is found returned to baseline she is living at home in doing well she has a 2-3 friends he they called each other daily to check on each other.. Patient advised me she is a follow-up appointment with her psychiatrist about 2 weeks. She has a bipolar disorder her psychiatrist will be retiring she will discuss with the psychiatrist who is going to take over her management of her bipolar disorder . Communicates well. Occasion reconciliation completed she is advised remain on legs because of his leg swelling and potassium to take a as well. Assessment & Plan (12/09/2022 6:08 PM CDT): Patient admitted to [facility] 11 30 2022 discharge 12/02/2022 reason for admission mental status changes hospital workup included CT scan of the head and carotid and carotid arteries no blockage carotid arteries CT scan of the head was consistent with some on her age no significant findings. Patient's laboratory studies reviewed predominantly normal and has been having weight loss which she is lost more weight she is become weaker she is now at a [facility] which physical therapy and occupational therapy is being prescribed patient has no dementia she is very clear in communications and comprehends entire visit. Medication reconciliation completed sees patient back in one-month Assessment & Plan (10/14/2020 6:18 PM CDT): Patient admitted to [facility] for 2 days she was discharge 10/06/2020. Diagnosis acute exacerbation COPD she was discharged on penicillin and prednisone 10 mg per day she has completed her therapy. Patient has returned to baseline. Abnormal CT scan of lung 04/21/2020 Assessment & Plan (07/31/2024 12:55 PM SALES ESTIMATOR): Pulmonary nodule present on 04/07/2024 recommendation by radiologist follow-up CT scan. Assessment & Plan (06/01/2023 5:43 PM CDT): Recent CT scan for pulmonary embolus on April 26 2023 moderate emphysema no other findings no lung tumor seen Assessment & Plan (04/21/2020 5:30 PM CDT): Reviewed patient's CT scan of her lung dated 03/13/2020 commended we continues to annual screening noncontrast low-dose. Patient's nodules left upper lobe [address] scan has a benign appearance. This was discussed with the patient brought report in from the imaging center in [facility] . Panlobular emphysema 04/21/2020 Assessment & Plan (06/01/2023 5:47 PM CDT): Patient's found the medication trilogy to benefit her in terms of exacerbation COPD and overall breathing. Assessment & Plan (10/04/2022 5:26 PM SALES ESTIMATOR): Long history of smoking will get a chest x-ray because of weight loss. Previous CT scan show advanced COPD Assessment & Plan (12/15/2021 3:16 PM CDT): On exam today noted to have faint expiratory wheezes and low normal O2 saturation. She has history of emphysema. She denies any associated SOB, cough or fever. Have recommended that we add albuterol inhaler every 4-6 hours as needed for cough or SOB. Assessment & Plan (10/14/2020 6:22 PM CDT): Patient has returned to baseline after recent hospitalization for acute exacerbation no change in therapy. Assessment & Plan (04/21/2020 5:31 PM CDT): CT scan shows moderate emphysema. Patient has no shortness of breath with routine activities she has made a significant change in her smoking pattern over the past few years 1 pack of cigarettes last her approximately 10 days. Patient not given any medication at this time. Personal history of nicotine dependence 02/29/20 20 Assessment & Plan (10/02/2023 11:40 AM SALES ESTIMATOR): Patient continues to smoke less than a pack per day she record will probably never quit smoking. Assessment & Plan (02/29/2020 6:11 PM CDT): Patient's change her methodology are pattern smoking she smokes 1 pack of cigarettes every and 9th or 10th day. She tries to go without smoking then she can not tolerate any longer and she will smoke a full pack. Patient has been smoking over 30 pack years she has over 53 years old will get a CT lung cancer screening Lumbar radiculopathy 03/18/2019 Overview (03/18/2019): Added automatically from request for surgery [id number] Assessment & Plan (07/31/2024 1:06 PM SALES ESTIMATOR): Low back pain is stable with the management of the pain Clinic Assessment & Plan (10/14/2020 6:21 PM CDT): Patient under care Pain specialist for back pain radiculopathy symptoms. She stable at this time notes have been reviewed. Screen for colon cancer 05/13/2018 Assessment & Plan (07/31/2024 1:04 PM SALES ESTIMATOR): Patient has colonoscopies discontinue she is 73 years old and frail Assessment & Plan (02/29/2020 6:07 PM CDT): Patient a colonoscopy 2013 results were negative she is not due for colonoscopy 4 year. Appropriate thin she will be 73/ 74 years old at that time. Assessment & Plan (10/25/2018 4:55 PM CDT): Patient reminded colon Guard test needed for colon cancer screening. Assessment & Plan (05/13/2018 6:44 PM CDT): Patient will not accept a colonoscopy she will accept a DNA colon Guard test attempt a colonoscopy a approximately 2 years ago she patient was inadequately prepped. Menopause 05/13/2018 Assessment & Plan (10/02/2023 11:30 AM SALES ESTIMATOR): Bone density order placed Assessment & Plan (05/13/2018 6:42 PM CDT): Bone density is due will schedule this patient take a she will come back and later date. Medicare annual wellness visit, subsequent 05/13 Assessment & Plan (07/31/2024 12:53 PM SALES ESTIMATOR): History and physical completed patient's health risk assessment health maintenance reviewed and addressed. Patient does not describe any new significant health problems she is stable at this time not any hospitalizations in the past 12 months laboratory studies will include HgbA1c lipid profile. She is 73 years old frail to some extent I am not going to do a colon cancer screening at this point Assessment & Plan (06/01/2023 5:40 PM CDT): History and physical completed patient's health risk assessment health maintenance reviewed in addressed. Patient not interested in a mammogram or colonoscopy at this time since her last annual exam she is had repeat patient's hospital admission 1 for exacerbation COPD 2 admissions because of confusion etiology confusion never determined patient did returned to baseline prior to discharge from hospital. Patient is doing well at this time relatively speaking she is ambulating with a walker p.r.n. basis continues see a psychiatrist. COPD is stable she has numerous years of smoking greater than 40 pack years. Assessment & Plan (04/25/2022 1:26 PM CDT): History and physical completed patient's health risk assessment health maintenance reviewed in addressed. Patient encouraged get most recent COVID vaccine Assessment & Plan (07/24/2021 5:03 PM SALES ESTIMATOR): Patient has not followed through on DNA Cologuard she states she will follow through on this occasion requested a colon cancer screening again. Assessment & Plan (02/29/2020 6:11 PM CDT): History and physical completed patient's health risk assessment health maintenance reviewed in addressed.. Update on mammogram. CT lung cancer screening has been ordered Assessment & Plan (04/01/2019 3:51 PM CDT): Patient is here for annual exam she is very stable at this point she is under care of Psychiatry and is doing well she has a history of bipolar disorder. His diabetes is improved patient's health risk assessment health maintenance addressed.. Patient is also sees a pain clinic she is scheduled to get a possible stimulator put in in the next 30-60 days. Patient made aware of her immunization that needs to be taking care through her pharmacy. She has also made aware need for annual eye exam Assessment & Plan (05/13/2018 6:40 PM CDT): Patient is due for mammogram patient complains about some discoloration of her breast she has normal skin changes 1 very slightly hyperpigmented happens be over breast nothing pathological patient so advised manual breast exam was normal. Mammogram requested. Essential hypertension 05/13/2018 Assessment & Plan (03/01/2025 4:58 PM CDT): Four hundred seventy 4-year-old lady she has a blood pressure 144/60 no change in therapy Assessment & Plan (07/31/2024 1:00 PM SALES ESTIMATOR): 20 mg daily furosemide pressure pressure at goal Assessment & Plan (02/09/2024 12:24 PM CDT): Blood pressure goal 134/72 pulse 42 and asymptomatic patient is only taking 20 mg furosemide on a p.r.n. basis Assessment & Plan (10/02/2023 11:30 AM SALES ESTIMATOR): Slight elevation blood pressure today patient is quite intense in discussing her health bipolar disorder in some of the things her of very little significance she is discussing in concerned about her anxiety levels up. At this time I am making no changes in her blood pressure medicines. She does remain on psychiatric medications. She has no symptoms referable to hypertension. Assessment & Plan (05/27/2023 9:54 PM CDT): BP stable in office today on current therapy. BLE edema as noted above. No acute cardiac symptoms or findings on exam. ECHO last month showed EF of 70% with mild LVH, no valvular issues. PMH of COPD also noted. CT chest last month showed stable emphysema, no acute findings. Will add lasix 20 mg daily. Continue low salt diet. Assessment & Plan (05/13/2023 8:44 PM CDT): BP stable in office today on current therapy. No acute findings on exam. Continue current regimen and low salt diet. Assessment & Plan (04/19/2023 5:42 PM CDT): Blood pressure remains stable patient is tolerating medications no change in therapy Assessment & Plan (02/16/2023 1:45 PM CDT): Blood pressure well controlled no change in therapy Assessment & Plan (12/09/2022 6:13 PM CDT): Blood pressure well controlled patient is no longer on diuretics. Assessment & Plan (10/04/2022 5:24 PM SALES ESTIMATOR): Blood pressure remains well controlled Assessment & Plan (04/25/2022 1:25 PM CDT): Blood pressure well controlled patient is tolerating medications no change in therapy Assessment & Plan (02/10/2022 4:58 PM CDT): Excellent controlled patient is tolerating medications no change in therapy Assessment & Plan (10/24/2021 6:00 PM CDT): Hypertension well controlled patient tolerating medications no change in therapy. Assessment & Plan (07/24/2021 5:01 PM SALES ESTIMATOR): Hypertension well controlled patient is tolerating medications. Assessment & Plan (02/29/2020 6:07 PM CDT): Hypertension well controlled patient is tolerating medications no change in therapy at this time. Assessment & Plan (10/30/2019 4:06 PM CDT): Hypertension well controlled patient is tolerating medications no change in therapy . Assessment & Plan (07/08/2019 5:23 PM SALES ESTIMATOR): Hypertension continues to be well control no change in therapy Assessment & Plan (06/01/2019 5:52 PM SALES ESTIMATOR): Blood pressure is well controlled patient is tolerating medications no change in therapy. Assessment & Plan (04/01/2019 3:47 PM CDT): Blood pressure remains well control no change in therapy patient is tolerating medications. No symptoms referable to hypertension this point. Assessment & Plan (12/22/2018 5:05 PM CDT): Hypertension control no change in therapy Assessment & Plan (10/25/2018 4:53 PM CDT): Hypertension is unchanged. Continue current treatment regimen. Dietary sodium restriction. Regular aerobic exercise. Stop smoking. Continue current medications. Blood pressure will be reassessed at the next regular appointment. Acquired hypothyroidism 12/12/2013 Overview (11/01/2016): Hypothyroidism Assessment & Plan (03/01/2025 4:54 PM CDT): TSH level therapeutic range 1.27 will continue present therapy levothyroxine 75 mcg daily Assessment & Plan (10/02/2023 12:42 PM SALES ESTIMATOR): TSH Latest Ref Rng 0.30 - 4.20 mcIUnit/mL 02/29/2020 2.28 07/24/2021 1.31 01/14/2023 0.10 (L) 10/01/2023 1.64 Legend: (L) Low Assessment & Plan (07/24/2021 5:01 PM SALES ESTIMATOR): Update patient's TSH level Assessment & Plan (10/14/2020 6:22 PM CDT): Update TSH level next visit Assessment & Plan (02/29/2020 6:08 PM CDT): Check TSH level today Assessment & Plan (06/01/2019 5:53 PM SALES ESTIMATOR): Patient's TSH level is overdue she will be back in a month for follow-up visit I will check it at that time. Assessment & Plan (04/01/2019 3:47 PM CDT): Hypothyroid spent well control no change in therapy. Assessment & Plan (12/22/2018 5:06 PM CDT): TSH level in therapeutic range no change in therapy Assessment & Plan (05/13/2018 6:38 PM CDT): Update TSH level today no change in therapy Assessment & Plan (04/27/2017 1:50 PM CDT): Will update patient's TSH level. Diabetes mellitus 12/12/2013 Overview (11/01/2016): Diabetes mellitus Assessment & Plan (03/01/2025 4:56 PM CDT): HgbA1c 7.1 without medications she is 74 years old she is doing well no change in therapy Assessment & Plan (07/31/2024 12:59 PM SALES ESTIMATOR): Diabetes has been well controlled HgbA1c 7.1 no change in therapy with the exception of triglyceride level Assessment & Plan (10/02/2023 12:41 PM SALES ESTIMATOR): Diabetes stable without medications no change in therapy. Hgb A1C Estim. Avg Glu (eAG) Latest Ref Rng 4.0 - 5.6 % mg/dL 10/23/2018 8.4 (H) 194 02/04/2019 5.7 (H) 117 06/01/2019 5.6 114 09/15/2019 6.8 (H) 148 02/16/2020 6.2 (H) 131 10/14/2020 6.5 (H) 140 07/24/2021 5.5 111 10/04/2022 6.0 (H) 126 10/01/2023 6.5 (H) 140 Legend: (H) High Assessment & Plan (06/01/2023 5:41 PM CDT): Diabetes has been well controlled without medications hemoglobin HgbA1c not indicated at this time. His foot exam is good. . She is had a recent eye exam. Change in therapy focus on patient maintaining good nutrition Assessment & Plan (12/09/2022 6:11 PM CDT): Hemoglobin HgbA1c 6.0-6.8 range for last 3 years. Patient on no medications for diabetes. Assessment & Plan (10/04/2022 5:24 PM SALES ESTIMATOR): Diabetes has been consistently well controlled update the HgbA1c today Assessment & Plan (04/25/2022 1:29 PM CDT): Hemoglobin HgbA1c results pending. Results for last 3 years have been between 5.7-6.8. Continue present therapy Assessment & Plan (02/10/2022 4:57 PM CDT): It update on patient's hemoglobin HgbA1c here in the next several months. Patient's last glucose order BMP in the last month was 90. Her HgbA1c is been very well controlled for last 3 years since January 2019. No change in therapy Assessment & Plan (10/24/2021 5:59 PM CDT): Diabetes well controlled patient is checking her glucometer twice week. Plans at this time repeated HgbA1c in the next few months as no new recommendations. Component Hgb A1C Latest Ref Rng & Units 4.0 - 5.6 % 05/20/2017 6.8 (H) 06/11/2018 6.7 (H) 10/23/2018 8.4 (H) 02/04/2019 5.7 (H) 06/01/2019 5.6 09/15/2019 6.8 (H) 02/16/2020 6.2 (H) 10/14/2020 6.5 (H) Assessment & Plan (07/24/2021 5:01 PM SALES ESTIMATOR): Update hemoglobin HgbA1c BMP FLP on today's visit. Patient missed some appointments secondary to COVID. Is no polyuria polyphagia polydipsia. Assessment & Plan (10/14/2020 6:20 PM CDT): Diabetes has been well controlled will get an update on HgbA1c. Patient is asymptomatic no polyuria polyphagia polydipsia no vision problems or neuropathy symptoms. Assessment & Plan (02/29/2020 6:08 PM CDT): Diabetes excellent controlled hemoglobin HgbA1c less than 6.5 will continue present therapy. Assessment & Plan (10/30/2019 1:46 PM CDT): Patient's current his hemoglobin HgbA1c is 6.8 this is an excellent results. Patient's previous HgbA1c 4 months ago was 5.6 patient has been off medicine for approximately 2 months year ago her HgbA1c was 8.4 means her sugar was averaging 190 for the sugar as of recent is averaging 148.. Weight loss made a significant difference. She is on no diabetic medications. Will continue to monitor HgbA1c in 3 months without diabetic medications. Assessment & Plan (07/08/2019 5:24 PM SALES ESTIMATOR): Patient's diabetes well controlled on no medication for diabetes her 30 day average on a glucometer is 112 for 7 day average is 109. No new recommendations at this time continue to monitor diabetes. 22 lb weight loss since April 2018 Assessment & Plan (06/01/2019 5:51 PM SALES ESTIMATOR): Patient stop taking her Invokana she was given samples of for Farxiga she also discontinued this. Patient has lost weight 16 lb since November. Her glucometer readings 7 day average is 79, 14 day average 85, her 30 day average is 89. At this time discontinue metformin. Patient to monitor glucometer and if she consistently runs above 180 she has to give me a call. Check her hemoglobin HgbA1c . Last HgbA1c was 5.7 in early January Assessment & Plan (04/01/2019 3:46 PM CDT): Patient's hemoglobin HgbA1c is dropped 5.7 this is very good. Patient is on Farxiga is helped her she needs to make sure sugar stays down she has a procedure coming up in March.. Some point I might want to consider Actos as an alternative this will be more affordable for this patient. Visit for 02/24/2019 Assessment & Plan (01/20/2019 5:20 PM CDT): Patient was placed on basal insulin samples of Toujeo were given on the day of 12/18/2018. Patient's glucose levels have dropped significantly. On January 15 insulin was discontinued glucose levels are consistently running in the 70s concerned about developing hypoglycemia. As patient for the last 5 days glucose levels been around 80-84 without insulin. At this time get hemoglobin HgbA1c on February 04. Anticipate results will be very acceptable. Patient then preceding getting her pain pump placed. A have her diabetes is controlled pain pump will not be placed in on elective surgery. Patient has no new concerns at this time. Patient also advised me she has to have some information sent to [facility]'s pharmacy in [place] regarding her using her strips 2 to 3 times a day she was on insulin. However the because samples were given insulin did not show up in the computer. Will notify [facility]'s that patient is taking insulin therefore would justify more than 1 strip per day. Assessment & Plan (12/22/2018 5:05 PM CDT): Diabetes not controlled hemoglobin HgbA1c change from 6.7 in May 2018 to 8.4 an September 2018 HgbA1c of 8.4 means that she has average 194.. Patient is getting ready to have a pain pump placed in permanent she has been advised her sugar has to be in the best control for have the procedure done. This time a discontinue glimepiride and start her on basal insulin/Toujeo 20 units daily. A see her back in 2 weeks she is going to her glucometer readings on a daily basis. Patient attributes her change in HgbA1c to decreased exercise secondary to increased pain.. Assessment & Plan (10/25/2018 4:54 PM CDT): Diabetes is unchanged. Continue current treatment regimen. Reminded to bring in blood sugar diary at next visit. Dietary recommendations for ADA diet. Regular aerobic exercise. Discussed ways to avoid symptomatic hypoglycemia. Discussed sick day management. Discussed foot care. Diabetes will be reassessed in 6 months. Patient has no feeling in her feet. She has no pain per se. Will get a updated hemoglobin HgbA1c today. Patient's courage to get annual eye exam. Assessment & Plan (05/13/2018 6:38 PM CDT): Last HgbA1c in April 2017 results was 6.8 all the A1cs I have going back 2 years 3 years user HgbA1c been consistently less than 7 will update her lab today with respect HgbA1c urine for microalbuminuria lipid profile. Patient indicates she will come back at a later date get lab done orders are placed. Also monitor B 12. No change in therapy at this time Assessment & Plan (04/27/2017 1:53 PM CDT): Diabetes is unchanged. Continue current treatment regimen. Reminded to bring in blood sugar diary at next visit. Dietary recommendations for ADA diet. Discussed ways to avoid symptomatic hypoglycemia. Discussed sick day management. Discussed foot care. Diabetes will be reassessed in 6 months. Diabetes well controlled last hemoglobin HgbA1c was 6.2. Change in therapy needed update hemoglobin HgbA1c. Patient's eye exam is current foot exam is benign. Bipolar affective disorder 12/12/2013 Overview (11/02/2016): Bipolar disorder Assessment & Plan (03/01/2025 4:59 PM CDT): Patient's mood is very stable. Is depressed thinking is clear more motivated we will continue present therapy Assessment & Plan (07/31/2024 12:58 PM SALES ESTIMATOR): Patient is stable on present medicines new mood changes are present. Citalopram 20 mg daily Lamictal 150 mg daily gabapentin 100 mg t.i.d. Assessment & Plan (10/02/2023 11:43 AM SALES ESTIMATOR): Patient no longer has a psychiatrist. Her previous psychiatrist he the monique retired she did not specify. She is out to some facilities for psychiatric care in it declined her because of her age. According patient that was their policy not to take new patients over age 70.. Accurate this is I do not know advised patient to call his facility let them know she has a 30+ year history of psychiatric care. In the meantime I am going to continue present medications. She is focused on a lot of trivial quality during this visit today which made visit a bit longer. Examples she is concerned about the appearance of her arm which is perfectly normal. Medications Lamictal 50 mg daily, Topamax 50 mg 3 times a day citalopram 20 mg daily Assessment & Plan (06/01/2023 5:42 PM CDT): Patient is stable on continues see Psychiatry Assessment & Plan (04/25/2022 1:09 PM CDT): Patient advised me she has found a psychiatrist since her last visit with me several months ago. Therapy is going well. Assessment & Plan (10/24/2021 6:01 PM CDT): Patient's bipolar disorder she wants to find psychiatrist locally rather than traveling the [place].. Patient describes bipolar swings where she will go 10-14 days without smokining. Following day she may begin smoke 2 packs a day becomes hyperactive post 24 hours without sleep and has difficulty maintaining her balance when she walks and has had several falls.. Patient needs to discuss at swing and mood added to with her psychiatrist. Assessment & Plan (10/14/2020 6:19 PM CDT): Patient is under care of psychiatry which she received is Lamictal propanolol and Topamax from this physician. Hyperlipidemia 04/06/2013 Overview (11/01/2016): Hyperlipidemia Assessment & Plan (03/01/2025 4:58 PM CDT): Patient remains on atorvastatin 20 mg daily as effective in controlling her lipid levels. Assessment & Plan (02/29/2020 6:08 PM CDT): Most recent lipid level reviewed no change in therapy no repeat lab on today's date Assessment & Plan (10/30/2019 1:46 PM CDT): Hyperlipidemia lipid profile in therapeutic range 20 mg daily. Resolved Problems Problem Noted Date Diagnosed Date Resolved Date Diarrhea 04/19/2023 05/27/2023 Assessment & Plan (04/19/2023 5:43 PM CDT): Patient has had diarrhea for approximately 8 days she was on antibiotics briefly been off antibiotics over weakness diarrhea continues blood in his stools. This time I am going to put on Lomotil for approximate 4 days progress report next week Acute vaginitis 02/27/2023 05/27/2023 Assessment & Plan (02/27/2023 4:26 PM CDT): Vaginal symptoms for 1-2 weeks. Noticed specks of blood today after trying to insert monistat applicator. Assessment as noted above, likely from vaginal dryness. Will rx premarin cream as instructed. Keep clean and dry. Use only mild non-fragrant soap on outer structures only. Call if symptoms do not improve in 2 weeks. Hypokalemia 01/18/2023 05/27/2023 Hypophosphatemia 01/18/2023 05/27/2023 Mild malnutrition 01/15/2023 10/02/2023 Vulvar candidiasis 10/24/2022 Assessment & Plan (10/24/2022 2:54 PM CDT): Confirmed on external exam, no discharge. Burning only while peeing, none between. No frequency/urgency. Rxd Diflucan as directed. Stop cornstarch. Use aquaphor or vaseline instead-only on the outside. Use mild non-fragrant soap. Dry area well after showers. Call with any changes or concerns. Pelvic mass 10/04/2022 10/01/2023 Assessment & Plan (10/04/2022 5:27 PM SALES ESTIMATOR): Abdominal exam is questionable lower left quadrant/pelvic mass present request ultrasound of abdomen and pelvis.. Chronic rectal pain 02/10/2022 01/08/20 Assessment & Plan (02/10/2022 5:03 PM CDT): Patient brings to my attention today that she has been having chronic rectal pain for months to years. Last colonoscopy was 2013 she did not follow through on getting her DNA Cologuard study in 2020.. Denies any blood in stool I am refer her to General surgery. Absent pedal pulses 12/22/2021 06/01/20 Assessment & Plan (12/22/2021 12:27 PM CDT): Patient noted to have absent pedal pulse to palpation on the right. She also has a clarissa discoloration that may be d/t PAD. Have recommended OLIVIER's for further evaluation and f/u post testing or sooner if needed. Cellulitis of right foot 12/15/2021 Assessment & Plan (12/22/2021 12:26 PM CDT): Patient warmth and open sore have improved with course of antibiotics-she will complete as directed. She continues to have clarissa discoloration of the rt foot, but concerned this is related to underlying PAD given absent pedal pulse on the right. She will complete antibiotics and will call or go to ER with increasing/streaking redness, warmth, pain, fever or flu like symptoms. Assessment & Plan (12/15/2021 3:19 PM CDT): Patient presents with increasing swelling and redness of the Rt LE. She has bilateral LE swelling rt > lt. She also has small sore on rt lateral ankle with some surrounding warmth and tenderness. She has mild erythema of rt foot as well. Concern for underlying cellulitis. I am also concerned for healing of wounds as she has poor circulation noted on exam which may be contributing to her swelling and clarissa appearance of extremities. We will monitor closely for any changes and plan further labs and OLIVIER if no improvement at visit next week with antibiotic therapy. Patient instructed to call or go to ER with any worsening symptoms. Chronic renal failure, stage 3 (moderate) 10/24/2021 05/27/2023 Assessment & Plan (04/25/2022 1:28 PM CDT): Patient's last 2 EGFR is have been above 60 for she is no longer chronic renal failure stage 3 will continue to monitor. Diabetic greater than 20 years well controlled Assessment & Plan (02/10/2022 4:57 PM CDT): Patient's renal functions have improved last EGFR was over 6 this as of 01/16/2022. Continue treat diabetes and hypertension which are well controlled Assessment & Plan (10/24/2021 6:02 PM CDT): Creatinine clearance is 45 will repeat lab studies in 6 months. Patient's advised of the findings consistent with hypertension age and diabetes for number of years Trauma 07/24/2021 01/07/2023 Assessment & Plan (07/24/2021 5:03 PM SALES ESTIMATOR): Recent fall to her right side she complains of pain predominantly in the thoracic area. Minimal pain in hip and thigh. Will get an x-ray of her thoracic spine. Balance disorder 04/21/2020 07/31/2024 Assessment & Plan (01/07/2023 5:43 PM CDT): Patient's ambulating safely without walker or cane. Assessment & Plan (02/10/2022 5:04 PM CDT): Patient did go to physical therapy last year helped her considerably with her balance. She would like to resume physical therapy later knee year probably in April or June she is undecided when she wants to start this.. Gait in office today is consistent with age physical capabilities. Assessment & Plan (07/24/2021 5:02 PM SALES ESTIMATOR): Patient tells me that she is following about once a month. He knows she needs to go to balance therapy with physical therapy. I have made a referral at this time this is been discussed before. Assessment & Plan (04/21/2020 5:27 PM CDT): Patient states she is having near falls of feels off balance with walking she has some problems with gait. She requested to see physical therapy which I concur. Cystitis without hematuria 02/29/2020 0 01/07/2023 Assessment & Plan (10/04/2022 5:25 PM SALES ESTIMATOR): Recurrent dysuria UA pending Assessment & Plan (02/29/2020 6:13 PM CDT): Patient's cystitis possibly change in appearance reviewed occasional pain no hematuria UA has been ordered no medication given. Will await results Weight loss 06/01/2019 07/31/2024 Assessment & Plan (02/16/2023 1:48 PM CDT): Patient's hepatitis return her weight is continue to go up she is 10 lb up from a month ago 3 days prior to hospital admission.. Recommendations at this time. Patient's CMP showed a very slight decrease in total protein Assessment & Plan (01/07/2023 5:41 PM CDT): Patient longer having weight loss she is gained 30 lb since her last visit in November. Appetite has returned she is eating without any difficulty her strength is return she is walking without a walker would like to return to her home see no restrictions at this time she absolutely would not go to a assisted living facility she begin to cry with the suggestion of going in assisted living facility. Assessment & Plan (12/09/2022 6:10 PM CDT): On previous visit was concerned regarding abdominal mass however imaging CT scan of abdomen and pelvis failed to reveal any mass. His weight loss has continued despite normal lab see this patient back in one-month. Assessment & Plan (10/04/2022 5:24 PM SALES ESTIMATOR): Patient has lost weight in the past year 11 lb. She has an appetite now she describes for approximate 10 days in August appetite decreased. Patient advised me strength remains the same unchanged. States she feels . Some change in bowels from diarrhea to constipation in past 2 months.. Exam patient's sclera is very pale nailbeds are pale reason will get a CBC CMP T3-T4. Also symptomatic with urinary problems dysuria will get a urinalysis questionable pelvic lower left quadrant mass pelvic ultrasound and abdominal ultrasound requested. He her back thereafter Assessment & Plan (07/24/2021 5:01 PM SALES ESTIMATOR): Patient's weight is stabilized. Assessment & Plan (10/30/2019 2:15 PM CDT): Weight is been stable for the past 4 months. BMI is 25 patient feels well Assessment & Plan (06/01/2019 5:52 PM SALES ESTIMATOR): Patient's parents in some weight loss appetite is not very good. She had laboratory studies done at pain clinic less than 3 weeks ago the results with reasonably good. Check her hemoglobin HgbA1c today. Patient recently had a pain pump placement I do not know if this has any influence on weight loss Pain of right thumb 07/19/2018 10/26/19 19 Assessment & Plan (07/19/2018 3:27 PM SALES ESTIMATOR): Patient has pain in right thumb less than 2 weeks no history of trauma to the some. Pain occurs with range of motion she has a clicking popping at the distal in the PIP joint.. She has tenderness on palpating at the joint space between PI P D IP joint no redness no swelling she also has some pain the base of her thumb on palpating in range of motion. Is my impression patient has tenosynovitis impossible some osteoarthritis. Plans at this time give her trial of NSAIDs Naprosyn 500 mg twice a day for the next 60 days or less depending on the pain course. Chest pain 05/13/2018 06/01/2019 Assessment & Plan (05/13/2018 6:41 PM CDT): Patient advised me she is having sharp left-sided chest pain lasting several minutes in duration usually occurs at rest she has pain going down arms sometimes pain into her back none the jaw no diaphoresis no shortness of breath with this. Advised me she is too unstable on her feet in 2 short of breath to do a treadmill request pharmacological stress test. Pharyngoesophageal dysphagia 05/13/2018 10/25/2018 Assessment & Plan (06/01/2018 1:52 PM SALES ESTIMATOR): Patient reports a history of difficulty swallowing that is been ongoing for over a year. Her symptoms primarily consist a problems with solid and soft foods. Her symptoms are localized to the root of her neck at the level of the cricopharyngeus muscle. Patient is noted to have a prominent lingual tonsil which sometimes can be reflective of poorly controlled reflux. There was no other mucosal pathology in the upper aerodigestive tract noted on exam today. Patient will require a barium swallow esophagram to look for any intrinsic pathology that may be causing her symptoms. Possible need for upper endoscopy based on results of esophagram. Assessment & Plan (05/13/2018 6:42 PM CDT): Patient complains of food getting caught in upper throat above a trachea difficulty swallow this occurs initially once a month now is occurring once a week will referred to Ear Nose and Throat. She denies any pain heart difficulty swallowing in the middle lower esophagus. Needs flu shot 05/13/2018 10/25/2018 Assessment & Plan (05/13/2018 6:43 PM CDT): Patient agreed immunization 4th high dose flu shot Need for 23-polyvalent pneum ococcal polysaccharide vaccine 05/13/2018 10/25/2018 Assessment & Plan (05/13/2018 6:42 PM CDT): Patient agreed to immunization Pneumovax 23 given. Shortness of breath 05/13/2018 04/01/20 19 Dizziness on standing 04/25/20172022 Assessment & Plan (10/04/2022 5:29 PM SALES ESTIMATOR): Patient continues have dizziness when going from sitting to standing as well as when she turns over in bed.. She is becoming once stable she has a cane and walker that she does not use advised her to start using these. Assessment & Plan (04/27/2017 1:49 PM CDT): Patient has severe vertigo turning over in bed. Duration can last 15-25 minutes. Plans referred to physical therapy for possible improvement. Hypercalcemia 06/13/2012 02/29/2020 Overview (11/01/2016): Hypercalcemia Encounters Date Type Department Care Team Description 06/07/2025 Telephone [facility] [address] [place] [address] Crow Miranda MD left leg swollen 04/02/2025 Telephone [facility] [address] [place] [address] Crow Miranda MD from Last 3 Months Immunizations Immunization Administration Dates Next Due Influenza, Quad, Adjuvantate d, Intramuscular 06/05/2023 Influenza, Quadrivalent, Hig h Dose, Preservative Free, Intrr 06/23/2021,04/12/2020 Influenza, Quadrivalent, Spl it, Preservative Free, Intramuscular 06/01/2019,05/06/2015 Influenza, Split 05/12/2013,04/29/2012 Influenza, Trivalent, High D ose, Split, Preservative Free, Intramuscular 07/30/2024,05/12/2018,07/10/2017,05/22 Influenza, Trivalent, IM (MDV) 06/11/2014 Influenza, Unspecified 06/21/2019 Pneumococcal Conjugate PCV 13 01/26/2016 Pneumococcal Polysaccharide PPV23 05/12/2018,08/2011,05/26/2001 RSV, Bivalent, Protein Subun it Rsvpref, Diluent (Abrysvo) 06/05/2023 Td, adsorbed 07/29/2002 Tdap 06/21/2019 Surgical History Surgery Date Site/Laterality Comments OTHER SURGICAL HISTORY ENDOMETRIOSIS: JEFFRY/ BSO TONSILLECTOMY Tonsillectomy OTHER SURGICAL HISTORY coccydynia: coccygectomy HYSTERECTOMY Medical History Medical History Date Comments Endometritis 1985 ENDOMETRIOSIS Hx Other Medical 2013 coccydynia Hyperlipidemia Peptic ulceration Type 2 diabetes mellitus Hypothyroidism Bipolar disorder Anemia Family History Medical History Relation Name Comments Coronary artery disease Cousin Rosamaria nary artery disease, premature; Diabetes type II Father Diabetes -T ype 2; Lymphoma Father's Sister Cancer -lymp lyle; Alcohol abuse Maternal Grandfather Destiny morales; Hypertension Mother Hypertension; Kidney failure Mother Renal failure ; Cause of : Renal failure Alcohol abuse Mother's Brother Alcoholism ; Hyperlipidemia Other Family histor y of Hyperlipidemia; Relation Name Status Comments Cousin Father Father's Sister Maternal Grandfather Mother (Age 83) Mother's Brother Other Social History Tobacco Use Types Packs/Day Years Used Date Smoking Tobacco: Some Days Cigarettes 1 50 Smokeless Tobacco: Never Tobacco Cessation:Ready to Q uit: Not Asked; Counseling Given: Not Answered Comments:Smoking History Packs/day: Patient unable to answer, cousin Rosalina answered [...] Never 04/26/2023 How often do you attend orthodox or mormon serv ices? Never 04/26/2023 Do you belong to any clubs o r organizations such as orthodox groups, unions, fraternal or athletic groups, or [...] place to sleep or slept in a alf (including now)? No 04/26/2023 Personal Safety Answer Date Recorded Have you ever been in or are you currently in a harmful physical or emotional relationship or is someone making you feel afraid or unsafe? Denies 11/16/2024 Comments No Sex and Gender Information Value Date Recorded Sex Assigned at Not on file Legal Sex Female 1:28 PM SALES ESTIMATOR Gender Identity Female 10/13/2020 3:08 PM CDT Sexual Orientation Choose not to disclose 2020 3:08 PM CDT Obstetrics History Para Term AB IAB SAB Ectopic Multiple Livin g Live Births 0 0 0 0 0 0 0 0 0 0 0 Last Filed Vital Signs Vital Sign Reading Time Taken Comments Blood Pressure 144/68 03/01/2025 3:55 PM CDT Pulse 52 03/01/2025 3:55 PM CDT Temperature 36.6 C (97.8 F) 03/01/2025 3:55 PM CDT Respiratory Rate 16 03/01/2025 3:55 PM CDT Oxygen Saturation 97% 03/01/2025 3:55 PM CDT Inhaled Oxygen Concentration - - Weight 65 kg (143 lb 6.4 oz) 03/01/2025 3:55 PM CDT Height 167.6 cm (5' 6) 03/01/2025 3:55 PM CDT Body Mass Index 23.15 03/01/2025 3:55 PM CDT Plan of Treatment Health Maintenance Due Date Last Done Comments Lung Cancer Screening 05/07/2024 04/07/2024 Foot Exam 05/30/2024 05/30/2023, 03/30, 10/14/2020, Additional history exists Covid-19 Vaccine (2024-08 6 season) 2025 02/27/2022, 11/16/2020, 10/21/2020 Influenza Vaccine (#1) 2025 , 06/05/2023, 06/23/2021, Additional history exists Albumin Creatinine Ratio, Urine 07/30/2025 07/30/2024, 07/24/2021, 09/15/2019, Additional history exists Depression Screening 07/30/2025 07/30/2024, 04/24/2022, 07/07/2019, Additional history exists Fall Risk Assessment 07/30/2025 07/30/2024, 05/30/2023, 04/27/2023, Additional history exists Lipid Panel 07/30/2025 07/30/2024, 03/30, 07/24/2021, Additional history exists Well Visit 65+ 07/30/2025 07/30/2024, 08/2022, 04/24/2022, Additional history exists eGFR 07/30/2025 07/30/2024, 03/30, 04/25/2023, Additional history exists Osteoporosis Screening-Bone Density Scan 11/13/2025 11/14/2023, 09/13/2021, 05/28/2018 DTaP/Tdap/Td Vaccine (3 - Td or Tdap) 06/21/2029 06/21/2019, 11/24/2007, 07/29/2002, Additional history exists Colon Cancer Screening-CT Colonography Discontinued 04/13/2014, 04/13/2014 Colon Cancer Screening-Colonoscopy Discontinued 04/13/2014, 04/13/2014 Colon Cancer Screening-DNA Stool Discontinued 04/13/20 14, 04/13/2014 Colon Cancer Screening-FIT Discontinued 04/13/2014, Colon Cancer Screening-FOBT Discontinued 04/13/2014, 0 04/13/2014 Colon Cancer Screening-Sigmoidoscopy Discontinued 04/13/2014, 04/13/2014 Hepatitis C Screening Completed 10/18/2016 Pneumococcal vaccine 65+ Completed 018, 01/26/2016, 04/29/2012, Additional history exists Breast Cancer Screening-Mammogram Discontinued 11/14/2023, 11/07/2021, 02/29/2020, Additional history exists Dilated Eye Exam Discontinued 02/03/2024 Hemoglobin A1C Discontinued 07/30/2024, 11/2023, 10/04/2022, Additional history exists Colorectal Cancer Screening Discontinued Hepatitis B Screening Discontinued Zoster Vaccine Discontinued Medical Devices Implanted Type Area [employer] [place] Device Identifier Shelf Expiration Date Model / Serial / Lot [employer] [address] [employer] [place] Lead - [id number] Implanted:Qty: 2 on 05/01/2019 by Yusra Sow MD at [facility] [facility] N/A: Spine Thoracic [facility] 01/06/2021 [id number] / / [id number] [facility] 3186ans Octrode 60cm 8 Electrode Lead Percutaneous Kit Neurostimulator - [id number] Implanted:Qty: 1 on 05/01/2019 by Yusra Sow MD at [facility] N/A: Spine Thoracic [facility] 01/19/2021 [id number] / / [id number] [facility] [facility] 3186ans Octrode 60cm 8 Electrode Lead Percutaneous Kit Neurostimulator - [id number] Implanted:Qty: 1 on 05/01/2019 by Yursa Sow MD at [facility] N/A: Spine Thoracic [facility] 01/19/2021 [id number] / / [id number] [facility] 3660 Contrlsys Proclaim Elite 4.95cmx5.55cm 5 Implantable Pulse Tonic - [id number] Implanted:Qty: 1 on 05/01/2019 by Yusra Sow MD at [facility] N/A: Spine Thoracic [facility] 2019 3660 CONTRLSYS / / [id number] Procedures Procedure Name Priority Date/Time Associated Diagnosis Comments EGFR Routine 07/30/2024 3:21 PM SALES ESTIMATOR 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, without long-term current use of insulin (HCC) HEMOGLOBIN A1C Routine 07/30/2024 3:21 PM SALES ESTIMATOR 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, without long-term current use of insulin (HCC) LIPID PANEL Routine 07/30/2024 3:21 PM SALES ESTIMATOR Mixed hyperlipidemia 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, without long-term current use of insulin (HCC) ALBUMIN CREATININE RATIO, URINE Routine 07/30/2024 3:21 PM SALES ESTIMATOR 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, without long-term current use of insulin (HCC) CT LUNG CANCER SCREENING Schedule Routine, Read Routine (OP Routine) 04/07/2024 2:41 PM CDT Cigarette smoker HM DIABETES EYE EXAM Routine 02/03/2024 9:08 AM CDT SCREENING MAMMOGRAM BILATERAL W SURINDER Schedule Routine, Read Routine (OP Routine) 11/14/2023 3:13 PM CDT Breast cancer screening by mammogram DEXA AXIAL SKELETON BONE DENSITY 1 OR MORE SITES Schedule Routine, Read Routine (OP Routine) 11/14/2023 3:03 PM CDT Menopause HEPATITIS C ANTIBODY Routine 10/18/2016 10:21 AM CDT COLONOSCOPY IMAGES 04/13/2014 from Last 3 Months or Most Recently Relevant to Health Maintenance Results * (ABNORMAL) eGFR (07/30/2024 3:21 PM SALES ESTIMATOR) eGFR 53(L) >=60 mL/min/1. 73 m2 Comment: Interpretive Data Reference Interval Normal >/= 90 mL/min/1.73m2 Mildly decreased* 60 - 89 mL/min/1.73m2 Mildly to moderately decreased 45 - 59 mL/min/1.73m2 Moderately to severely decreased 30 - 44 mL/min/1.73m2 Severely decreased 15 - 29 mL/min/1.73m2 Kidney Failure < 15 mL/min/1.73m2 *Relative to young adult level Estimated glomerular filtration rate is determined by the 2020 CKD-EPI equation recommended by the National Kidney Foundation (A Unifying Approach to GFR Estimation: Recommendations of the NKF-ASK Task Force on Reassessing the Inclusion of Race in Diagnosing Kidney Disease, JASN 2020). The CKD-EPI equation should not be used for patients with unstable renal function and has not been validated in children and those over 70. Current interpretive data was last reviewed 2021. Testing performed by: [address] [address] Blood 07/30/2024 3:21 PM SALES ESTIMATOR 07/30/2024 7:50 PM SALES ESTIMATOR Crow Miranda MD LAB BLOOD ORDERABLES Final Result Performing Organization Address City/State/[facility] Co de Phone Number [address] [place] [address] * Albumin Creatinine Ratio, Urine (07/30/2024 3:21 PM SALES ESTIMATOR) Pathologist [facility] [place] Albumin Ur 19.7 mg/L Comment: Interpretive Data No reference range established. Current interpretive data was last revised 2018. Testing performed by: [address] [address] Creatinine Ur 81.2 mg/dL JOSH Comment: Interpretive Data No reference range established. Current interpretive data was last revised 2018. Testing performed by: [address] [address] Albumin Creatinine Ratio, Ur 24 1 - 29 mg/g JOSH Comment:Testing performed by : [address] [address] Urine 07/30/2024 3:21 PM SALES ESTIMATOR 07/31/2024 5:14 AM SALES ESTIMATOR Crow Miranda MD LAB URINE ORDERABLES Final Result Performing Organization Address [facility] de Phone Number JOSH [address] [place] [address] * (ABNORMAL) Hemoglobin A1c (07/30/2024 3:21 PM SALES ESTIMATOR) Hgb A1C 7.1(H) 4.0 - 5.6 % Comment:Testing performed by : [address] [address] Estimated Average Glucose 157 mg/dL JOSH Comment: The ADA recommends reporting an estimated Average Glucose (eAG) with all Hemoglobin A1c results using the equation derived from a study of 507 normal and diabetic adults. Minority populations were underrepresented and children were not included. (Diabetes Care 31:8560-0495, 2008). The eAG is not equivalent to a fasting glucose. Testing performed by: [address] [address] Blood 07/30/2024 3:21 PM SALES ESTIMATOR 07/30/2024 7:34 PM SALES ESTIMATOR Crow Miranda MD LAB BLOOD ORDERABLES Final Result Performing Organization Address [facility] Co de Phone Number JOSH [address] [facility] [place] [address] * (ABNORMAL) Lipid panel (07/30/2024 3:21 PM SALES ESTIMATOR) Cholesterol 184 30 - 199 mg/dL Comment: Interpretive Data Ages < or = 19 years Acceptable: <170 mg/dL Borderline high: 170-199 mg/dL High: >or= 200 mg/dL Ages > or = 20 years Desirable: <200 mg/dL Borderline high: 200-239 mg/dL High: >or= 240 mg/dL Literature References: 1. Expert Panel on Integrated Guidelines for Cardiovascular Health and Risk Reduction in Children and Adolescents. Pediatrics 2011;128:S213 2. NCEP Expert Panel. Circulation 2004;110:227 Current Interpretive Data was last revised on 2018. Testing performed by: [facility], [address] [place] [address]., [address] Triglycerides 291(H) <=149 mg/dL JOSH Comment: Interpretive Data Ages < or = 9 years Acceptable: <75 mg/dL Borderline high: 75-99 mg/dL High: >or= 100 mg/dL Ages 10 to 20 years Acceptable: <90 mg/dL Borderline high: 90-129 mg/dL High: >or= 130 mg/dL Ages > or = 20 years Desirable: <150 mg/dL Borderline high: 150-199 mg/dL High: 200-499 mg/dL Very high: >or= 499 mg/dL Literature References: 1. Expert Panel on Integrated Guidelines for Cardiovascular Health and Risk Reduction in Children and Adolescents. Pediatrics 2011;128:S213 2. NCEP Expert Panel. Circulation 2004;110:227 Current Interpretive Data was last revised on 2018. Testing performed by: [facility], [address] [place] [address]., [address] HDL 46 >=40 mg/dL JOSH Comment: Interpretive Data Ages < or = 19 years Acceptable: >45 mg/dL Borderline low: 40-45 mg/dL Low: <40 mg/dL Ages > or = 20 years Desirable: >or= 60 mg/dL Low: <40 mg/dL Literature References: 1. Expert Panel on Integrated Guidelines for Cardiovascular Health and Risk Reduction in Children and Adolescents. Pediatrics 2011;128:S213 2. NCEP Expert Panel. Circulation 2004;110:227 Current Interpretive Data was last revised on 2018. Testing performed by: [facility], [address] [place] [address]., [address] LDL, calculated 90 <=129 mg/dL JOSH Comment: Interpretive Data Ages < or = 19 years Acceptable: <110 mg/dL Borderline high: 110-129 mg/dL High: >or= 130 mg/dL Ages > or = 20 years Optimal: <100 mg/dL Near optimal: 100-129 mg/dL Borderline high: 130-159 mg/dL High: >160 mg/dL Calculated using the Cuevas LDL-C estimating equation. This equation was implemented on 2024. Prior to this date LDL-C was estimated using the Friedewald equation. Literature References: 1. Expert Panel on Integrated Guidelines for Cardiovascular Health and Risk Reduction in Children and Adolescents. Pediatrics 2011;128:S213 2. NCEP Expert Panel. Circulation 2004;110:227 3. Mason M et al. ELIZABETH Cardiol. 2019November 26;5(5):540-548. doi: 10.1001/jamacardio.2020.0013 Current Interpretive Data was last revised on 2024. Testing performed by: [address] [address] Non-HDL Cholesterol 138 mg/dL JOSH DE LA ROSA Comment: Interpretive Data Ages < or = 19 years Acceptable: <120 mg/dL Borderline high: 120-144 mg/dL High: >145 mg/dL Ages > or = 20 years When triglycerides are >200 mg/dL, Non-HDL cholesterol is a secondary target of therapy with treatment goals that are 30 mg/dL greater than the LDL cholesterol target. Literature References: 1. Expert Panel on Integrated Guidelines for Cardiovascular Health and Risk Reduction in Children and Adolescents. Pediatrics 2011;128:S213 2. NCEP Expert Panel. Circulation 2004;110:227 Current Interpretive Data was last revised on 2018. Testing performed by: [facility], [address] [place] [address]., [address] Chol/HDL ratio 4 JOSH DE [place]A Comment:Testing performed by : [address] [address] Blood 07/30/2024 3:21 PM SALES ESTIMATOR 07/30/2024 7:34 PM SALES ESTIMATOR us Crow Miranda MD LAB BLOOD ORDERABLES Final Result JOSH [facility] [place] [facility] [id number] Department [place] [address] * CT Lung Cancer Screening (04/07/2024 2:41 PM CDT) Anatomical Region Laterality Modality Chest N/A Computed Tomogra phy 04/08/2024 10:0 3 AM CDT Narrative 04/08/2024 10:30 AM CDT EXAM DESCRIPTION: CT LUNG CANCER SCREENING REASON FOR STUDY: Screening CT of the chest in a current smoker with a 29 pack year smoking history. Additional history: None. TECHNIQUE: Low dose CT scan of the chest was performed without intravenous contrast using helical scanning technique. The exam extends from the lung apices through the lung bases. Automatic exposure control was used as a dose optimization technique. NOTE: This study was performed for the specific purposes of lung cancer screening and is not an alternative to diagnostic chest CT. RADIATION DOSE: CT dose index volume (CTDIvol) = 1.52 mGy COMPARISON: 04/25/2023 FINDINGS: SMOKING RELATED LUNG DISEASE: There are moderate to severe emphysematous changes of lungs with scattered subsegmental atelectasis and scarring. There is biapical pleural thickening and scarring. There is no definite evidence of a pneumothorax. The central airways are grossly patent. There is scattered bronchial wall thickening, which is likely related to mild chronic bronchitis/bronchiolitis. There is no definite evidence of a pleural effusion. There are scattered calcified granulomas noted. LUNG NODULES: There is interval development of new patchy ground-glass, nodular, and consolidative airspace opacities in the posterior right upper lobe, right middle lobe, and bilateral lower lobes, which is concerning for multifocal airspace disease of inflammatory or infectious etiology. For example, there is interval development of irregular nodular airspace opacities in the posterior right lower lobe with the largest nodular opacity measuring 0.3 cm (axial image 134). There is interval development of an irregular patchy consolidative airspace opacity in the posterior right lower lobe measuring 1.5 cm (axial image 158). There is interval development of a 0.5 cm right middle lobe ground-glass nodular airspace opacity (axial image 212). There is interval development of a 0.87 cm irregular ground-glass nodular airspace opacity in the left lower lobe (axial image 224). CORONARY ARTERY CALCIFICATION: Present. OTHER: The heart size is stable. There is no definite evidence of a pericardial effusion. There are mild atherosclerotic changes of the coronary vessels. There are atherosclerotic changes of the thoracic aorta. There is dilatation of main pulmonary artery measuring up to 4.9 cm, which is concerning for pulmonary arterial hypertension. There is no definite unenhanced CT evidence of mediastinal, hilar, or axillary lymphadenopathy. There are scattered subcentimeter mediastinal lymph nodes noted with the largest measuring 0.6 cm in the subcarinal region (axial image 142). The bilateral adrenal glands are grossly stable and unremarkable. There is partial visualization of a couple of cysts in the left kidney, which are better evaluated on prior CT dated 10/26/2022. There are calcified granulomas noted in the spleen. There is mild osteopenia. There is stable scoliotic curvature of the spine with degenerative changes. IMPRESSION: Interval development of new patchy ground-glass, nodular, and consolidative airspace opacities in the posterior right upper lobe, right middle lobe, and bilateral lower lobes, which is concerning for multifocal airspace disease of inflammatory or infectious etiology. Short-term follow-up low-dose chest CT in 1 month is recommended to assess for resolution and to exclude the presence of an underlying pulmonary nodule as clinically indicated. Moderate to severe emphysematous changes of lungs with scattered subsegmental atelectasis and scarring. Scattered bronchial wall thickening, which is likely related to mild chronic bronchitis/bronchiolitis. Lung-RADS category 0: Obscured by acute abnormality. Recommendation: Low dose CT of chest in 1 month. THIS IS AN ELECTRONICALLY VERIFIED FINAL REPORT 04/08/2024 10:30 AM - Electronically signed by Aleksandra Elizalde D.O. PS: PS Report ID: [id number] Reading Location: [place] [address] Crow Miranda MD IMG CT PROCEDURES Final Re sult * DIABETES EYE EXAM (02/03/2024 9:08 AM CDT) SCRIBED DIABETIC DILATED EYE EXAM Normal Historical Provider HEALTH MAINTENANCE Final Result * Screening Mammogram Bilateral W Surinder (11/14/2023 3:13 PM CDT) Anatomical Region Laterality Modality Breast Bilateral Mammography 11/15/2023 9:18 AM CDT Impressions 11/15/2023 9:18 AM CDT There is no mammographic evidence of malignancy. A 1 year screening mammogram is recommended. BI-RADS: 1 - Negative. The patient has been or will be contacted. The patient will be entered into a reminder system with a target due date of 1 year for her next mammogram. Electronically signed by: Maria Elena Carter M.D. Narrative 11/15/2023 9:18 AM CDT EXAMINATION: SCREENING MAMMOGRAM BILATERAL W SURINDER ORDERING HEALTHCARE PROVIDER: CROW MIRANDA HISTORY: Routine screening mammography. COMPARISON: 11/07/2021, 02/29/2020 TECHNIQUE: CC and MLO views of the bilateral breasts were obtained with digital technique using breast tomosynthesis with C view. Computer aided detection was utilized. FINDINGS: DENSITY: There are scattered fibroglandular elements in the bilateral breasts. BREASTS: There are no suspicious masses, suspicious calcifications, or other suspicious findings in either breast. There has been no suspicious interval change. us Crow Miranda MD IMG MAMMO PROCEDURES Final Result * Dexa Axial Skeleton Bone Density 1 or 2 Site (11/14/2023 3:03 PM CDT) Anatomical Region Laterality Modality Body N/A Other 11/14/2023 8:24 PM CDT Narrative 11/14/2023 8:25 PM CDT EXAM DESCRIPTION: DEXA AXIAL SKELETON BONE DENSITY 1 OR MORE SITES REASON FOR STUDY: 72 y/o year old F with given history of: menopause screening [place]/Model: Groupjump ([id number]/N [id number]) CLINICAL INFORMATION: Current height: 66 inches Maximum height: 68 inches Weight: 146 pounds Risk factors: Postmenopausal, smoking history COMPARISON: 09/13/2021 Dissimilar scan types or analysis methods precludes assessment for calculating a significant change. FINDINGS: AP LUMBAR SPINE L1-L4: Total BMD is 1.182 g/cm2 T-score is 1.2 LEFT HIP: Total BMD is 0.707 g/cm2 T-score is -1.9 Femoral neck BMD is 0.667 g/cm2 T-score is -1.6 FRAX: 10 year risk for a major osteoporotic fracture is 12 %, 10 year risk for a hip fracture is 4.0 % IMPRESSION: Low Bone Mass. REFERENCE: Bone mineral density: T-Score: Normal (T-score above or = -1.0) Low bone mass (T-score between -1.0 and -2.5) replaces the previously used term osteopenia Osteoporosis (T-score = or below -2.5) Z-Score: Within the expected range for age (Z-score above -2.0) Below the expected range for age (Z-score is -2.0 or below) Please see below follow up recommendations. Medical evaluation for secondary causes of low bone mineral density may be appropriate. FRAX is a World Health Organization validated fracture risk assessment tool that calculates a person's 10 year probability of a major osteoporosis related fracture and hip fracture. According to the National Osteoporosis Foundation guidelines, postmenopausal women and men age 50 or older with low bone mass and a 10 year probability of a major osteoporosis related fracture = or greater than 20% or a 10 year probability of a hip fracture = or greater than 3% should be considered for pharmacological treatment for the prevention of osteoporosis. For further information, including treatment recommendations, please refer to the 2019 ISCD Official Positions (http://www.iscd.org) and the NOF's Clinician's Guide to Prevention and Treatment of Osteoporosis (http://www.nof.org/professionals/clinical-guidelines) THIS IS AN ELECTRONICALLY VERIFIED FINAL REPORT 11/14/2023 8:25 PM - Electronically signed by Celio Quintana M.D. MF: ELIZABETH Report ID: [id number] Reading Location: [place] [address] Procedure Note Celio Quintana MD - 11/14/2023 EXAM DESCRIPTION: DEXA AXIAL SKELETON BONE DENSITY 1 OR MORE SITES REASON FOR STUDY: 72 y/o year old F with given history of: menopause screening Kai [place]/Model: Groupjump (S/N [id number]) CLINICAL INFORMATION: Current height: 66 inches Maximum height: 68 inches Weight: 146 pounds Risk factors: Postmenopausal, smoking history COMPARISON: 09/13/2021 Dissimilar scan types or analysis methods precludes assessment for calculating a significant change. FINDINGS: AP LUMBAR SPINE L1-L4: Total BMD is 1.182 g/cm2 T-score is 1.2 LEFT HIP: Total BMD is 0.707 g/cm2 T-score is -1.9 Femoral neck BMD is 0.667 g/cm2 T-score is -1.6 FRAX: 10 year risk for a major osteoporotic fracture is 12 %, 10 year risk for ahip fracture is 4.0 % IMPRESSION: Low Bone Mass. REFERENCE: Bone mineral density: T-Score: Normal (T-score above or = -1.0) Low bone mass (T-score between -1.0 and -2.5) replaces thepreviously used term osteopenia Osteoporosis (T-score = or below -2.5) Z-Score: Within the expected range for age (Z-score above -2.0) Below the expected range for age (Z-score is -2.0 or below) Please see below follow up recommendations. Medical evaluation forsecondary causes of low bone mineral density may be appropriate. FRAX is a World Health Organization validated fracture risk assessmenttool that calculates a person's 10 year probability of a major osteoporosisrelated fracture and hip fracture. According to the National OsteoporosisFoundation guidelines, postmenopausal women and men age 50 or older with low bonemass and a 10 year probability of a major osteoporosis related fracture = or greater than 20% or a 10 year probability of a hip fracture = or greaterthan 3% should be considered for pharmacological treatment for the preventionof osteoporosis. For further information, including treatment recommendations, please referto the 2019 ISCD Official Positions (http://www.iscd.org) and the NOF's Clinician's Guide to Prevention and Treatment of Osteoporosis (http://www.nof.org/professionals/clinical-guidelines) THIS IS AN ELECTRONICALLY VERIFIED FINAL REPORT 11/14/2023 8:25 PM - Electronically signed by Celio Quintana M.D. MF: ELIZABETH Report ID: [id number] Reading Location: [id number] us Crow Miranda MD IMG DXA PROCEDURES Final R esult * Hepatitis C antibody (10/18/2016 10:21 AM CDT) [facility] SIGNAL TO CUT-OFF 0.01 <1.00 [facility] HISTORICAL RESULTS Comment: Test performed [email or web address] [address] [place] [address] Director: CROW PEREZ DO,MPH Hep C Ab NON-REACT KARRIE NON-REACT KARRIE [facility] HISTORICAL RESULTS 10/18/2016 10:2 1 AM CDT Crow Miranda MD LAB MICROBIOLOGY - GENERAL ORDERABLES Final Result [facility] HISTORICAL RESULTS * COLONOSCOPY IMAGES (04/13/2014) Anatomical Region Laterality Modality Other Narrative 04/13/2014 Ordered by an unspecified provider. Historical Provider GI PROCEDURE ORDERABLES F inal Result from Last 3 Months or Most Recently Relevant to Health [place] [address] [place] [address] [facility] MEDICARE [facility] Address: [address] [address] [place] [address] [place] [address] MEDICARE Member Subscriber Plan / Payer ( fective 2007-) Name:Becca Coe Member ID:[id number] Relation to Subscriber:Self Name:Becca Coe Subscriber ID:[id number] Payer ID:[id number] Group ID:Not on file Type:MEDICARE TRADITIONAL Address: [place] [id number] [facility] [place] [address] [place] [address] MEDIC[address] [facility] [place] [address] [place] [address] MEDICARE [facility] Advance Directives For more information, please contact: [phone] * Full Code (Latest Code Status on File) Date Activated Date Inactivated Comments 04/25/2023 7:05 PM 04/27/2023 10:02 PM * Full Code Date Activated Date Inactivated Comments 01/15/2023 9:26 AM 01/18/2023 11:12 PM * Full Code Date Activated Date Inactivated Comments 05/01/2019 11:15 AM 05/01/2019 6:06 PM Care Teams Element Burner Relationship Specialty Start Date End Date Crow Miranda MD PCP - General 10/26/16
--- OUTSIDE RECORDS SUMMARY | 2025-06-07 15:11 | XMS_ITS | Clinical Summary ---
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 Gender Identity Not on file Sexual Orientation Not on file Plan of Treatment Health Maintenance Due Date Last Done Comments Hepatitis C Virus (HCV) Screening 1950 TdaP Immunization 1950 Pneumococcal Immunization (5 0+ years) (1 of 1 - PCV) 1998 Zoster Immunization (1 of 2) 1998 Medicare Initial AWV [id number] 05/29/2008 Respiratory Syncytial Virus (RSV) Immunization (Adult) (1 - 1-dose 75+ series) 11/27/2023 Influenza Immunization (#1) 03/29/202506/28, 05/06/2015 SARS-COV-2 Immunization (2024- season) 2025 02/27/2022, 11/16/2020, 10/21/2020 Hepatitis B Immunization Aged Out No longer eligible based on patient's age to complete this topic Human Papillomavirus (HPV) Immunization Aged Out No longer eligible b ased on patient's age to complete this topic Meningococcal Immunization (ACWY) Aged Out No longer eligible b ased on patient's age to complete this topic Rotavirus Immunization Aged Out No lo nger eligible based on patient's age to complete this topic [place] [address] MEDICARE [facility] Care Teams Hat Blocking Operator Relationship Specialty Start Date End Date Miguel Miranda MD [address] [place] [address] PCP - General Internal Medicine 09/30/18
--- OUTSIDE RECORDS SUMMARY | 2025-06-07 15:11 | XMS_ITS | Encounter Summary ---
Author Organization [facility] Healthcare Address [address] [place] [address] Care Team Providers Care Stable Hand Name Role Phone Miguel Miranda MD Primary Care Provider [phone]- [phone] Reason for Visit * Reason Onset Date Comments Scheduling Appointments 09/12/2021 No answe r to confirm dexa Encounter Details Date Type Department Care Team (Late st Contact Info) Description 09/12/2021 Telephone [facility] [address] [place] [address] Fabby Romano, Scheduling Appointments (No answer to confirm dexa/) Social History Tobacco Use Types Packs/Day Years [...] on file 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
--- OUTSIDE RECORDS SUMMARY | 2025-06-07 15:11 | XMS_ITS | Clinical Summary ---
Author Organization [facility] Address [address] [place] [address] Care Team Providers Care Hand I Thermal Cutter Name Role Phone Miguel Miranda MD Primary Care Provider Source Comments [facility],non-owned Affiliates and Associated Physician Practices is amultiple site organization consisting of ambulatory clinics and hospital sitesin [place], [place], [place] and [place]. This disclosure is being madepursuant to the Care Everywhere program and may not contain all information available regarding this patient. Last updated 18.[facility] Allergies Active Allergy Reactions Criticality Noted Date Comments Cefaclor Urticaria Medium 06/21/2019 Erythromycin Urticaria Medium 06/21/2019 Penicillins Rash Medium 06/21/2019 Immunizations Immunization Administration Dates Next Due TDAP (7yrs+) 06/21/2019 Social History Tobacco Use Types Packs/Day Years Used Date Smoking Tobacco: Never Assessed Comments Unknown Sex and Gender Information Value Date Recorded Sex Assigned at Not on file Legal Sex Female 1:24 PM QUALITY ASSURANCE ASSISTANT Gender Identity Female 06/21/2019 12:42 PM QUALITY ASSURANCE ASSISTANT Sexual Orientation Not on file Plan of Treatment Health Maintenance Due Date Last Done Comments BONE DENSITY TESTING 1950 HEPATITIS C SCREENING 11/22/1966 PNEUMOCOCCAL VACCINE 50+ (1 of 1 - PCV) 1998 ZOSTER VACCINE (1 of 2) 1998 Respiratory Syncytial Virus (RSV) Vaccine Pt: or over 60 yrs (1 - 1-dose 75+ series) 11/27/2023 DEPRESSION SCREENING 07/29/2024 COVID-19 VACCINE (1 - 2023-2 5 season) 2025 INFLUENZA VACCINE (#1) 2025 DTAP/TDAP/TD VACCINES (2 - T d or Tdap) 06/21/2029 06/21/2019 HEPATITIS B VACCINE Aged Out No longe r eligible based on patient's age to complete this topic HIB VACCINE Aged Out No longer eligi ble based on patient's age to complete this topic HPV VACCINE Aged Out No longer eligi ble based on patient's age to complete this topic MENINGOCOCCAL (Group B) VACC INE SHARED DECISION-MAKING Aged Out No longer eligibl e based on patient's age to complete this topic MENINGOCOCCAL GROUPS A/C/Y/W VACCINE Aged Out No longer eligible b ased on patient's age to [place] [address] MEDICARE [facility] Care Teams Hand I Thermal Cutter Relationship Specialty Start Date End Date Miguel Miranda MD PCP - General Internal Medicine 06/21/19
[2025-06-07 15:12] VITALS: BP 164/59; PULSE 76; RESP 16; TEMP 36.4; O2SAT 96
--- OUTSIDE RECORDS SUMMARY | 2025-06-07 17:19 | XMS_ITS | Clinical Summary ---
Author Organization [facility] Address [address] [place] [address] Care Team Providers Care Machine Driller Name Role Phone Crow Miranda MD Primary Care Provider +1- [phone] Allergies Active Allergy Reactions Criticality Noted Date [...] 1 tablet (75 mcg total) by mouth middle school librarian before breakfast 90 tablet 1 12/17/19 25 [...] 07/31/2024 Assessment & Plan (07/31/2024 1:04 PM OCCUPATIONAL PHYSICIAN): Dysuria episodic urinalysis negative Menopausal vaginal dryness 02/09/2024 Assessment & Plan (02/09/2024 12:28 PM CDT): Patient complains of considerable amount of dry in his advised to follow-up with assistant womens volleyball coach I did write a prescription for her to get low-dose Premarin until she can get in see assistant womens volleyball coach Cigarette smoker 02/09/2024 Assessment & Plan (03/01/2025 [...] hemorrhoidectomy Assessment & Plan (10/02/2023 11:29 AM OCCUPATIONAL PHYSICIAN): Patient complains of hemorrhoidal pain almost daily she is doing inappropriate things with fiber diet. Utilizing stool softeners and suppositories. Have occasional bleeding plans refer to general surgery . Bilateral leg and foot pain 10/02/2023 Assessment & Plan (10/02/2023 12:35 PM OCCUPATIONAL PHYSICIAN): Patient gives a very vague pain discomfort [...] 04/25/2023 Assessment & Plan (07/31/2024 1:01 PM OCCUPATIONAL PHYSICIAN): Patient remains on Trelegy in very stable [...] sating 93% on RA. Encouraged to find electroplater apprentice, call for referral if needed. Continue Trelegy [...] findings on exam today. Encouraged to find electroplater apprentice near her, and call for referral if needed. Continue inhalers and medications as rxd. Avoid triggers, smoking cessation encouraged. Assessment & Plan (04/19/2023 5:42 PM CDT): Hospital follow-up patient is admitted to [facility] on 04/06/2023 discharge 04/08/2023. Reason for admission was exacerbation COPD. Patient is back to her baseline of functioning. Severe COPD she smoked 50 years at least 70 pack years. Recently stopped smoking last week. She is in no acute distress at this time she. Medication reconciliation completed. Assessment & Plan (02/16/2023 1:45 PM CDT): Hospital follow-up admission date 01/14/2023 discharge 01/18/2023 [facility] reason for admission altered mental status no [...] (12/09/2022 6:08 PM CDT): Patient admitted to [facility] 11 30 2022 discharge 12/02/2022 [...] become weaker she is now at a custodial which physical therapy and occupational therapy is being prescribed patient has no dementia she is very clear in communications and comprehends entire visit. Medication reconciliation completed sees patient back in one-month Assessment & Plan (10/14/2020 6:18 PM CDT): Patient admitted to [facility] for 2 days she was discharge 10/06/2020. Diagnosis acute exacerbation COPD she was discharged on penicillin and prednisone 10 mg per day she has completed her therapy. Patient has returned to baseline. Abnormal CT scan of lung 04/21/2020 Assessment & Plan (07/31/2024 12:55 PM OCCUPATIONAL PHYSICIAN): Pulmonary nodule present on 04/07/2024 recommendation by [...] report in from the imaging center in [facility] . Panlobular emphysema 04/21/2020 Assessment & Plan (06/01/2023 5:47 PM CDT): Patient's found the medication trilogy to benefit her in terms of exacerbation COPD and overall breathing. Assessment & Plan (10/04/2022 5:26 PM OCCUPATIONAL PHYSICIAN): Long history of smoking will get a [...] 20 Assessment & Plan (10/02/2023 11:40 AM OCCUPATIONAL PHYSICIAN): Patient continues to smoke less than a [...] (03/18/2019): Added automatically from request for surgery [id number] Assessment & Plan (07/31/2024 1:06 PM OCCUPATIONAL PHYSICIAN): Low back pain is stable with the management of the pain Clinic Assessment & Plan (10/14/2020 6:21 PM CDT): Patient under care Pain specialist for back pain radiculopathy symptoms. She stable at this time notes have been reviewed. Screen for colon cancer 05/13/2018 Assessment & Plan (07/31/2024 1:04 PM OCCUPATIONAL PHYSICIAN): Patient has colonoscopies discontinue she is 73 [...] 05/13/2018 Assessment & Plan (10/02/2023 11:30 AM OCCUPATIONAL PHYSICIAN): Bone density order placed Assessment & Plan (05/13/2018 6:42 PM CDT): Bone density is due will schedule this patient take a she will come back and later date. Medicare annual wellness visit, subsequent 05/13 Assessment & Plan (07/31/2024 12:53 PM OCCUPATIONAL PHYSICIAN): History and physical completed patient's health risk [...] vaccine Assessment & Plan (07/24/2021 5:03 PM OCCUPATIONAL PHYSICIAN): Patient has not followed through on DNA [...] therapy Assessment & Plan (07/31/2024 1:00 PM OCCUPATIONAL PHYSICIAN): 20 mg daily furosemide pressure pressure at goal Assessment & Plan (02/09/2024 12:24 PM CDT): Blood pressure goal 134/72 pulse 42 and asymptomatic patient is only taking 20 mg furosemide on a p.r.n. basis Assessment & Plan (10/02/2023 11:30 AM OCCUPATIONAL PHYSICIAN): Slight elevation blood pressure today patient is [...] diuretics. Assessment & Plan (10/04/2022 5:24 PM OCCUPATIONAL PHYSICIAN): Blood pressure remains well controlled Assessment & [...] therapy. Assessment & Plan (07/24/2021 5:01 PM OCCUPATIONAL PHYSICIAN): Hypertension well controlled patient is tolerating medications. Assessment & Plan (02/29/2020 6:07 PM CDT): Hypertension well controlled patient is tolerating medications no change in therapy at this time. Assessment & Plan (10/30/2019 4:06 PM CDT): Hypertension well controlled patient is tolerating medications no change in therapy . Assessment & Plan (07/08/2019 5:23 PM OCCUPATIONAL PHYSICIAN): Hypertension continues to be well control no change in therapy Assessment & Plan (06/01/2019 5:52 PM OCCUPATIONAL PHYSICIAN): Blood pressure is well controlled patient is [...] daily Assessment & Plan (10/02/2023 12:42 PM OCCUPATIONAL PHYSICIAN): TSH Latest Ref Rng 0.30 - 4.20 mcIUnit/mL 02/29/2020 2.28 07/24/2021 1.31 01/14/2023 0.10 (L) 10/01/2023 1.64 Legend: (L) Low Assessment & Plan (07/24/2021 5:01 PM OCCUPATIONAL PHYSICIAN): Update patient's TSH level Assessment & Plan (10/14/2020 6:22 PM CDT): Update TSH level next visit Assessment & Plan (02/29/2020 6:08 PM CDT): Check TSH level today Assessment & Plan (06/01/2019 5:53 PM OCCUPATIONAL PHYSICIAN): Patient's TSH level is overdue she will [...] therapy Assessment & Plan (07/31/2024 12:59 PM OCCUPATIONAL PHYSICIAN): Diabetes has been well controlled HgbA1c 7.1 no change in therapy with the exception of triglyceride level Assessment & Plan (10/02/2023 12:41 PM OCCUPATIONAL PHYSICIAN): Diabetes stable without medications no change in [...] diabetes. Assessment & Plan (10/04/2022 5:24 PM OCCUPATIONAL PHYSICIAN): Diabetes has been consistently well controlled update [...] (H) Assessment & Plan (07/24/2021 5:01 PM OCCUPATIONAL PHYSICIAN): Update hemoglobin HgbA1c BMP FLP on today's [...] medications. Assessment & Plan (07/08/2019 5:24 PM OCCUPATIONAL PHYSICIAN): Patient's diabetes well controlled on no medication for diabetes her 30 day average on a glucometer is 112 for 7 day average is 109. No new recommendations at this time continue to monitor diabetes. 22 lb weight loss since April 2018 Assessment & Plan (06/01/2019 5:51 PM OCCUPATIONAL PHYSICIAN): Patient stop taking her Invokana she was [...] has to have some information sent to [facility]'s pharmacy in [place] regarding her using her strips 2 to 3 times a day she was on insulin. However the because samples were given insulin did not show up in the computer. Will notify [facility]'s that patient is taking insulin therefore [...] therapy Assessment & Plan (07/31/2024 12:58 PM OCCUPATIONAL PHYSICIAN): Patient is stable on present medicines new mood changes are present. Citalopram 20 mg daily Lamictal 150 mg daily gabapentin 100 mg t.i.d. Assessment & Plan (10/02/2023 11:43 AM OCCUPATIONAL PHYSICIAN): Patient no longer has a psychiatrist. Her [...] find psychiatrist locally rather than traveling the [place].. Patient describes bipolar swings where she will [...] 10/01/2023 Assessment & Plan (10/04/2022 5:27 PM OCCUPATIONAL PHYSICIAN): Abdominal exam is questionable lower left quadrant/pelvic [...] 01/07/2023 Assessment & Plan (07/24/2021 5:03 PM OCCUPATIONAL PHYSICIAN): Recent fall to her right side she [...] capabilities. Assessment & Plan (07/24/2021 5:02 PM OCCUPATIONAL PHYSICIAN): Patient tells me that she is following [...] 01/07/2023 Assessment & Plan (10/04/2022 5:25 PM OCCUPATIONAL PHYSICIAN): Recurrent dysuria UA pending Assessment & Plan [...] one-month. Assessment & Plan (10/04/2022 5:24 PM OCCUPATIONAL PHYSICIAN): Patient has lost weight in the past [...] thereafter Assessment & Plan (07/24/2021 5:01 PM OCCUPATIONAL PHYSICIAN): Patient's weight is stabilized. Assessment & Plan (10/30/2019 2:15 PM CDT): Weight is been stable for the past 4 months. BMI is 25 patient feels well Assessment & Plan (06/01/2019 5:52 PM OCCUPATIONAL PHYSICIAN): Patient's parents in some weight loss appetite [...] 19 Assessment & Plan (07/19/2018 3:27 PM OCCUPATIONAL PHYSICIAN): Patient has pain in right thumb less [...] 10/25/2018 Assessment & Plan (06/01/2018 1:52 PM OCCUPATIONAL PHYSICIAN): Patient reports a history of difficulty swallowing [...] 04/25/20172022 Assessment & Plan (10/04/2022 5:29 PM OCCUPATIONAL PHYSICIAN): Patient continues have dizziness when going from [...] Type Department Care Team Description 06/07/2025 Telephone [facility] [address] [place] [address] Crow Miranda MD left leg swollen 04/02/2025 Telephone [facility] [address] [place] [address] Crow Miranda MD from Last [...] Never 04/26/2023 How often do you attend yarsanism or gnosticist serv ices? Never 04/26/2023 Do you belong to any clubs o r organizations such as yarsanism groups, unions, fraternal or athletic groups, or [...] place to sleep or slept in a intermediate (including now)? No 04/26/2023 Personal Safety Answer Date Recorded Have you ever been in or are you currently in a harmful physical or emotional relationship or is someone making you feel afraid or unsafe? Denies 11/16/2024 Comments No Sex and Gender Information Value Date Recorded Sex Assigned at Not on file Legal Sex Female 1:28 PM OCCUPATIONAL PHYSICIAN Gender Identity Female 10/13/2020 3:08 PM CDT [...] Vaccine Discontinued Medical Devices Implanted Type Area Vice President Fixed Income Device Identifier Shelf Expiration Date Model / Serial / Lot [employer] [address]2 [employer] Lead - [id number] Implanted:Qty: 2 on 05/01/2019 by Yusra Sow MD at [facility] N/A: Spine Thoracic [employer] 01/06/2021 1192 / / [id number] [employer] [id number] Octrode 60cm 8 Electrode Lead Percutaneous Kit Neurostimulator - [id number] Implanted:Qty: 1 on 05/01/2019 by Yusra Sow MD at [facility] N/A: Spine Thoracic [employer] 01/19/2021 [id number] / / [id number] [employer] 3186ans Octrode 60cm 8 Electrode Lead Percutaneous Kit Neurostimulator - [id number] Implanted:Qty: 1 on 05/01/2019 by Yusra Sow MD at [facility] N/A: Spine Thoracic [employer] 01/19/2021 [id number] / / [id number] [employer] 3660 Contrlsys Proclaim Elite 4.95cmx5.55cm 5 Implantable Pulse Tonic - [id number] Implanted:Qty: 1 on 05/01/2019 by Yusra Sow MD at [facility] N/A: Spine Thoracic [employer] 2019 3660 CONTRLSYS / / [id number] Procedures Procedure Name Priority Date/Time Associated Diagnosis Comments EGFR Routine 07/30/2024 3:21 PM OCCUPATIONAL PHYSICIAN 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, without long-term current use of insulin (HCC) HEMOGLOBIN A1C Routine 07/30/2024 3:21 PM OCCUPATIONAL PHYSICIAN 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, without long-term current use of insulin (HCC) LIPID PANEL Routine 07/30/2024 3:21 PM OCCUPATIONAL PHYSICIAN Mixed hyperlipidemia 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, without long-term current use of insulin (HCC) ALBUMIN CREATININE RATIO, URINE Routine 07/30/2024 3:21 PM OCCUPATIONAL PHYSICIAN Diabetes mellitus due to underlying condition with [...] Results * (ABNORMAL) eGFR (07/30/2024 3:21 PM OCCUPATIONAL PHYSICIAN) eGFR 53(L) >=60 mL/min/1. 73 m2 Comment: [...] was last reviewed 2021. Testing performed by: [address] [address] Blood 07/30/2024 3:21 PM OCCUPATIONAL PHYSICIAN 07/30/2024 7:50 PM OCCUPATIONAL PHYSICIAN Crow Miranda MD LAB BLOOD ORDERABLES Final Result Performing Organization Address City/State/[facility] Co de Phone Number [address] Department [place] [address] * Albumin Creatinine Ratio, Urine (07/30/2024 3:21 PM OCCUPATIONAL PHYSICIAN) Pathologist [facility] Albumin Ur 19.7 mg/L Comment: Interpretive Data No reference range established. Current interpretive data was last revised 2018. Testing performed by: [address] [address] Creatinine Ur 81.2 mg/dL JOSH Comment: Interpretive Data No reference range established. Current interpretive data was last revised 2018. Testing performed by: [address] [address] Albumin Creatinine Ratio, Ur 24 1 - 29 mg/g JOSH Comment:Testing performed by : [address] [address] Urine 07/30/2024 3:21 PM OCCUPATIONAL PHYSICIAN 07/31/2024 5:14 AM OCCUPATIONAL PHYSICIAN Crow Miranda MD LAB URINE ORDERABLES Final Result Performing Organization Address [facility] de Phone Number JOSH [address] Department [place] [address] * (ABNORMAL) Hemoglobin A1c (07/30/2024 3:21 PM OCCUPATIONAL PHYSICIAN) Hgb A1C 7.1(H) 4.0 - 5.6 % Comment:Testing performed by : [address] [address] Estimated Average Glucose 157 mg/dL JOSH Comment: The ADA recommends reporting an estimated Average Glucose (eAG) with all Hemoglobin A1c results using the equation derived from a study of 507 normal and diabetic adults. Minority populations were underrepresented and children were not included. (Diabetes Care 31:3461-3562, 2008). The eAG is not equivalent to a fasting glucose. Testing performed by: [address] [address] Blood 07/30/2024 3:21 PM OCCUPATIONAL PHYSICIAN 07/30/2024 7:34 PM OCCUPATIONAL PHYSICIAN Crow Miranda MD LAB BLOOD ORDERABLES Final Result Performing Organization Address [facility] Co de Phone Number JOSH [address] [facility] [address] [employer] [place] [employer] [place] [address] * (ABNORMAL) Lipid panel (07/30/2024 3:21 PM OCCUPATIONAL PHYSICIAN) Cholesterol 184 30 - 199 mg/dL Comment: [...] last revised on 2018. Testing performed by: [facility], [address] [place] [address]., [id number] Triglycerides 291(H) <=149 mg/dL JOSH Comment: Interpretive [...] last revised on 2018. Testing performed by: [facility], [address] [place] [address]., [address] HDL 46 >=40 mg/dL JOSH Comment: Interpretive [...] last revised on 2018. Testing performed by: [facility], [address] [place] [address]., [address] LDL, calculated 90 <=129 mg/dL JOSH Comment: [...] last revised on 2024. Testing performed by: [address] [address] Non-HDL Cholesterol 138 mg/dL JOSH DE LA [...] last revised on 2018. Testing performed by: [facility], [address] [place] [address]., [address] Chol/HDL ratio 4 JOSH [place] Comment:Testing performed by : [address] [address] Blood 07/30/2024 3:21 PM OCCUPATIONAL PHYSICIAN 07/30/2024 7:34 PM OCCUPATIONAL PHYSICIAN us Crow Miranda MD LAB BLOOD ORDERABLES Final Result JOSH DE [place] [address] Department [place] [address] * CT Lung Cancer Screening (04/07/2024 2:41 [...] Aleksandra Elizalde D.O. PS: PS Report ID: [id number] Reading Location: [place] [address] Crow Miranda MD IMG CT PROCEDURES Final [...] F with given history of: menopause screening Vice President Fixed Income/Model: [employer] (S/N [id number]) CLINICAL INFORMATION: Current height: 66 inches Maximum [...] Celio Quintana M.D. MF: ELIZABETH Report ID: [id number] Reading Location: [place] [address] Procedure Note Celio Quintana MD - 11/14/2023 EXAM DESCRIPTION: DEXA AXIAL SKELETON BONE DENSITY 1 OR MORE SITES REASON FOR STUDY: 72 y/o year old F with given history of: menopause screening Vice President Fixed Income/Model: [employer] (S/N [id number]) CLINICAL INFORMATION: Current height: 66 inches Maximum [...] Celio Quintana M.D. MF: ELIZABETH Report ID: [id number] Reading Location: [id number] us Crow Miranda MD IMG DXA PROCEDURES Final R esult * Hepatitis C antibody (10/18/2016 10:21 AM CDT) [facility] SIGNAL TO CUT-OFF 0.01 <1.00 [facility] HISTORICAL RESULTS Comment: Test performed at [employer] [facility] [address] [place] [address] Director: CROW PEREZ DO,MPH Hep C Ab [...] Relevant to Health Maintenance [place] [address] [facility] MEDICARE [facility] Address: [address] [address] [place] [address] [place] [address] MEDICARE Member Subscriber Plan / Payer ( fective 2007-) Name:Becca Coe Member ID:[id number] Relation to Subscriber:Self Name:Becca Coe Subscriber ID:[id number] Payer ID:[id number] Group ID:Not on file Type:MEDICARE TRADITIONAL Address: [place] [id number] [facility] [place] [address] MEDICARE [facility] [place] [address] MEDICARE [facility] Advance Directives For more information, please contact: [phone] * Full Code (Latest Code Status on File) Date Activated Date Inactivated Comments 04/25/2023 7:05 PM 04/27/2023 10:02 PM * Full Code Date Activated Date Inactivated Comments 01/15/2023 9:26 AM 01/18/2023 11:12 PM * Full Code Date Activated Date Inactivated Comments 05/01/2019 11:15 AM 05/01/2019 6:06 PM Care Teams Machine Driller Relationship Specialty Start Date End Date Crow Miranda MD PCP - General 10/26/16
--- OUTSIDE RECORDS SUMMARY | 2025-06-07 17:19 | XMS_ITS | Encounter Summary ---
Author Organization [facility] Healthcare Address [address] [place] [address] Care Team Providers Care Residential Sales Name Role Phone Miguel Miranda MD Primary Care Provider +1- [phone] Reason for Visit * Reason Onset Date Comments Scheduling Appointments 09/12/2021 No answe r to confirm dexa Encounter Details Date Type Department Care Team (Late st Contact Info) Description 09/12/2021 Telephone [facility] [address] [place] [id number] Fabby Romano, Scheduling Appointments (No answer to [...] on file Legal Sex Female 1:28 PM RECEIVING BARN CUSTODIAN Gender Identity Female 10/13/2020 3:08 PM CDT [...] documented as of this encounter Care Teams Residential Sales Relationship Specialty Start Date End Date Miguel Miranda MD PCP - General 10/26/16 documented as of this encounter
--- OUTSIDE RECORDS SUMMARY | 2025-06-07 17:19 | XMS_ITS | Clinical Summary ---
Author Organization [facility] Address [address] [place] [address] Phone Care Team Providers Care Clerk Of Scales Name Role Phone Miguel Miranda MD Primary Care Provider +1- [phone] Social History Tobacco Use Types Packs/Day Years Used Date Smoking Tobacco: Never Assessed Comments Unknown Sex and Gender Information Value Date Recorded Sex Assigned at Not on file Legal Sex Female 8:29 AM IT SYSTEMS ANALYST CONSULTANT Gender Identity Not on file Sexual Orientation [...] to complete [place] [address] [place] [address] MEDICARE [facility] Care Teams Clerk Of Scales Relationship Specialty Start Date End Date Miguel Miranda MD [address] [place] [address] PCP - General Internal Medicine 09/30/18
--- OUTSIDE RECORDS SUMMARY | 2025-06-07 17:19 | XMS_ITS | Encounter Summary ---
Author Organization [facility] Healthcare Address [address] [place] [address] Care Team Providers Care Government Clerk Name Role Phone Miguel Miranda MD Primary Care Provider [phone]- [phone] Reason for Visit * Reason Onset Date Comments left leg swollen 06/07/2025 Encounter Details Date Type Department Care Team (Late st Contact Info) Description 06/07/2025 Telephone [facility] Medical Group [facility] [address] [place] [id number] Miguel Miranda MD [address] [address] left leg swollen Social History Tobacco Use [...] Never 04/26/2023 How often do you attend advent or sabianist serv ices? Never 04/26/2023 Do you belong to any clubs o r organizations such as advent groups, unions, fraternal or athletic groups, or [...] place to sleep or slept in a group home (including now)? No 04/26/2023 Personal Safety Answer Date Recorded Have you ever been in or are you currently in a harmful physical or emotional relationship or is someone making you feel afraid or unsafe? Denies 11/16/2024 Comments No Sex and Gender Information Value Date Recorded Sex Assigned at Not on file Legal Sex Female 1:28 PM COMPOSITION WORKER Gender Identity Female 10/13/2020 3:08 PM CDT Sexual Orientation Choose not to disclose 2020 3:08 PM CDT documented as of this encounter Miscellaneous Notes * Telephone Encounter - Bekah Burgos RN - 06/07/2025 1:02 PM CST Spoke with Dr Miranda Please have the pt go to the er for a evaluation of the left leg and hematuria [facility] She will call us back with a progress report OSITION WORKER * Telephone Encounter - Bekah Burgos RN - 06/07/2025 11:57 AM COMPOSITION WORKER Called and spoke with the pt She [...] to the office Pt could get to [facility] to have labs completed OSITION WORKER * Telephone Encounter - Herminio Tejeda - [...] into the office at this time. CBN: [phone] Pharm: [facility] in [place] OSITION WORKER documented in this encounter Plan of Treatment Not on file documented as of this encounter Visit Diagnoses Not on filedocumented in this encounter Care Teams Government Clerk Relationship Specialty Start Date End Date Miguel Miranda MD PCP - General 10/26/16 documented as of this encounter
--- OUTSIDE RECORDS SUMMARY | 2025-06-07 17:19 | XMS_ITS | Encounter Summary ---
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
--- OUTSIDE RECORDS SUMMARY | 2025-06-07 17:19 | XMS_ITS | Encounter Summary ---
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
--- OUTSIDE RECORDS SUMMARY | 2025-06-07 17:19 | XMS_ITS | Encounter Summary ---
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
--- NOTE | 2025-06-07 17:28 | ED.EXTPRO ---
HPI - Extremity Problem General Chief complaint: Extremity Problem,Nontraumatic Stated complaint: L swollen calf Time Seen by Provider: 06/07/25 17:13 Source: patient Mode of arrival: wheelchair Limitations: no limitations History of Present Illness HPI Narrative: This is a 74-year-old female that presents to the emergency department for left leg swelling and pain. Ongoing over the last week. Reports shortness of breath, that is chronic due to smoking. Denies fevers, chest pain. Related Data Home Medications ?Medication ?Instructions ?Recorded ?Confirmed ?Last Taken ?Type ascorbic acid (vitamin C) 500 mg 500 mg PO DAILY 10/10/19 04/05/23 Unknown History tablet (Vitamin C) aspirin 81 mg tablet,delayed 81 mg PO DAILY 10/10/19 04/05/23 Unknown History release (Adult Low Dose Aspirin) atorvastatin 20 mg tablet 20 mg PO HS 10/10/19 04/05/23 Unknown History citalopram 20 mg tablet 20 mg PO DAILY 10/10/19 04/05/23 Unknown History gabapentin 100 mg capsule 100 mg PO TID 10/10/19 04/05/23 Unknown History lamotrigine 100 mg tablet 150 mg PO BID 10/10/19 04/05/23 Unknown History levothyroxine 100 mcg tablet 100 mcg PO HS 10/10/19 04/05/23 Unknown History pregabalin 150 mg capsule (Lyrica) 150 mg PO TID 10/10/19 04/05/23 Unknown History propranolol 20 mg tablet 20 mg PO HS 10/10/19 04/05/23 Unknown History topiramate 25 mg tablet 25 mg PO TID 10/10/19 04/05/23 10/04/20 07:00 History oxycodone-acetaminophen 10 mg-325 1 tablet PO TID 10/04/20 04/05/23 10/04/20 09:00 History mg tablet morphine 15 mg tablet,extended 15 mg PO TID 12/01/22 04/05/23 04/05/23 History release 0800 Calcium Citrate + D 630 mg PO BID 04/05/23 04/05/23 Unknown History One-A-Day Proactive 65 Plus 1 tablet PO BID 04/05/23 04/05/23 Unknown History Tylenol 650 mg PO TID 04/05/23 04/05/23 Unknown History albuterol sulfate 90 mcg/actuation 90 mcg inhalation Q4H PRN 04/05/23 04/05/23 Unknown History aerosol inhaler Shortness Of Breath furosemide 20 mg PO DAILY PRN swelling 04/05/23 04/05/23 Unknown History Allergies Allergy/AdvReac Type Severity Reaction Status Date / Time cefaclor Allergy Mild Hives Verified 04/08/23 13:15 Penicillins Allergy Mild Rash Verified 04/08/23 13:15 Review of Systems Review of Systems: All systems reviewed & are unremarkable except as noted in HPI and below PMFSH Past Medical History Medical History Anxiety Arthritis Bipolar disorder Cataract Chronic back pain Chronic coccygeal pain Chronic, continuous use of opioids Degenerative joint disease Depression Emphysema with chronic bronchitis Esophagitis with gastritis Essential hypertension Hyperlipidemia Hypothyroidism Malnutrition of moderate degree Peripheral neuropathy Tobacco dependence Tremors of nervous system Type 2 diabetes mellitus Surgical History Surgical History History of appendectomy History of bunionectomy History of spinal surgery History of tonsillectomy and adenoidectomy History of total hysterectomy with bilateral salpingo-oophorectomy (BSO) Family History Family History Father , At age 90 Diabetes mellitus Kidney disease Mother , At age 80 Heart disease Social History Social History Social History: Surrogate medical decision maker: Code status: Full code. Smoking packs per day: 3 Smoking cigarettes per day: 60.0 Tobacco type: cigarettes Second hand tobacco smoke exposure: No Smoking end date: 09/30/16 Additional smoking assessment comments: Smoke 3 packs per day up to 1999. Now states only smokes a little Alcohol intake: never Substance use: never Lack of Transportation: No Lack of Food: Never True Current Housing: I Have Housing Concerned About Future Housing: No Difficulty Paying Gas/Electric Bills: No Difficulty Paying for Meds: No Currently Unemployed: No Education: Bachelor's Degree Difficulty w/ Childcare or Family Care: No Additional living arrangements comments: . Lives in her own home. No children. 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 Spiritual care concerns: No Exam Narrative: GENERAL: Well-appearing, well-nourished, and in no acute distress. HEAD: Normocephalic, atraumatic. EYES: EOMI. ENT: Nares clear, no rhinorrhea or epistaxis. Mucous membranes moist. Oropharynx without tonsillar hypertrophy exudate or other lesions. Bilateral TMs pearly lorenzo non-bulging NECK: Supple. No adenopathy or masses. CHEST: Clear to auscultation. No respiratory distress. No wheezes rales or rhonchi HEART: Regular rate and rhythm. No murmur heard. Normal peripheral pulses. EXTREMITIES: Normal range of motion. Edema with overlying redness to the left lower leg. Normal DP pulse. Normal sensation SKIN: Warm, dry, no rash. NEURO: No focal deficits. Alert and oriented x3. PSYCH: Normal mood and affect Course Vital Signs Vital signs: Vital Signs Temperature 97.6 F 06/07/25 15:12 Pulse Rate 76 06/07/25 15:12 Respiratory Rate 16 06/07/25 15:12 Blood Pressure 164/59 H 06/07/25 15:12 Pulse Oximetry 96 06/07/25 15:12 Temperature 98 F 06/07/25 18:58 Pulse Rate 58 L 06/07/25 18:58 Respiratory Rate 20 06/07/25 18:58 Blood Pressure 140/60 06/07/25 18:58 Pulse Oximetry 95 06/07/25 18:58 MDM - Extremity (Nontraumatic) MDM Narrative Medical decision making narrative: Patient presents emergency department for left lower extremity swelling and redness. Ongoing over the last week. She is neurovascularly intact. She is afebrile and nontoxic appearing. Cbc without leukocytosis. Inflammatory markers are not elevated. Metabolic panel with mild elevation in potassium to 5.2. BNP 224. Left lower extremity venous Doppler without evidence of DVT. Will be started on antibiotics for cellulitis. She is to follow up with her PCP. She was given warnings to return to the ER Differential Diagnosis Differential diagnosis: Likely cellulitis and deep vein thrombosis of lower extremity Lab Data Attestation: I reviewed the patient's lab results. 06/07/25 17:36 06/07/25 17:36 Labs: Lab Results 06/07/25 06/07/25 Range/Units 17:36 17:36 WBC 5.6 (4.5-10.0) K/mm3 RBC 3.70 L (4.2-5.4) M/mm3 Hgb 12.3 (12.0-15.0) g/dL Hct 39.0 (37.0-47.0) % MCV 105.4 H (80-100) fl MCH 33.2 (26-34) pg MCHC 31.5 L (32-36) g/dl RDW 12.4 (11.5-14.5) % Plt Count 135 L (150-375) k/mm3 MPV 9.2 (7.4-10.4) fl Immature Gran % (Auto) 0.4 (0-0.5) % Neut % (Auto) 61.0 (45.5-73.1) % Lymph % (Auto) 25.1 (18.3-44.2) % Turner % (Auto) 10.0 H (2.6-8.5) % Eos % (Auto) 3.0 (0-4.4) % Baso % (Auto) 0.5 (0.2-1.2) % Lymph # (Auto) 1.41 (0.9-3.2) K/mm3 Turner # (Auto) 0.6 (0.1-0.6) K/mm3 Eos # (Auto) 0.2 (0-0.3) K/mm3 Baso # (Auto) 0.0 (0.0-0.1) K/mm3 Abs Immat Gran (auto) 0.02 (0.00-0.031) K/mm3 Absolute Neuts (auto) 3.4 (1.3-6.7) K/mm3 Absolute Nucleated RBC 0.000 (0.0-0.012) K/mm3 Band Neutrophils % 0 (0-6) % Nucleated RBC % 0.0 (0.0-0.2) % Platelet Estimate Slightly decreased (Adequate) Hypochromasia 1+ Macrocytosis 1+ (NORMAL) Schistocytes None seen ESR 13 (0-20) mm/hr PT 13.1 (11.1-14.7) Seconds INR 1.0 APTT 24.4 (22.3-36.8) Seconds Sodium 137 (137-145) mmol/L Potassium 5.2 H (3.4-5.0) mmol/L Chloride 108 H (98-107) mmol/L Carbon Dioxide 25 (22-30) mmol/L Anion Gap 4 (4-12) mmol/L BUN 19 H D (7-17) mg/dL Creatinine 0.86 (0.7-1.0) mg/dL Estim Creat Clear Calc Not Reportable Estimated GFR > 60 (59 - ) Glucose 115 H (65-110) mg/dL Calcium 11.0 H (8.4-10.2) mg/dL Total Bilirubin 0.5 (0.2-1.3) mg/dL AST 25 (14-36) U/L ALT 16 (6-35) U/L Alkaline Phosphatase 105 (38-126) U/L C-Reactive Protein 0.5 (<1.0) mg/dL NT-Pro-B Natriuret Pep 224 H Cancelled (19.9-100) pg/mL Total Protein 6.5 (6.3-8.2) g/dL Albumin 4.1 (3.5-5.1) g/dL Imaging Data Radiologist's impression: ITS Impressions Venous Doppler Study 06/07/25 18:52 IMPRESSION: There was no sonographic evidence of deep vein thrombosis in the left lower extremity. Critical Care Time Critical Care Time Critical Care Time: No Discharge Plan Discharge Clinical Impression: Acute hyperkalemia Cellulitis Qualifiers: Site of cellulitis: extremity Site of cellulitis of extremity: lower extremity Laterality: left Qualified Code(s): L03.116 - Cellulitis of left lower limb Patient Disposition: Home Condition: Stable Instructions: Antibiotic Form Additional Instructions: Return to the ER if you experience fever, worsening redness and swelling of your extremity, numbness or any other symptoms that are concerning to you Take oral antibiotic as prescribed Follow up with your doctor for further care. Your potassium was a little elevated today (5.2). I would like you to have some repeat blood work in the next couple of days to make sure this is normalizing. I have sent an order electronically for you to have this done at a lab of your choice Patient Language: Kiswahili Prescriptions: New doxycycline hyclate 100 mg capsule 100 mg PO BID 10 Days Qty: 20 0RF No Action atorvastatin 20 mg Tablet 20 mg PO HS topiramate 25 mg Tablet 25 mg PO TID aspirin [Adult Low Dose Aspirin] 81 mg Tablet,Delayed Release (Dr/Ec) 81 mg PO DAILY levothyroxine 100 mcg Tablet 100 mcg PO HS citalopram 20 mg Tablet 20 mg PO DAILY ascorbic acid (vitamin C) [Vitamin C] 500 mg Tablet 500 mg PO DAILY gabapentin 100 mg capsule 100 mg PO TID propranolol 20 mg Tablet 20 mg PO HS lamotrigine 100 mg Tablet 150 mg PO BID Rx Instructions: 0700 & 1900 pregabalin [Lyrica] 150 mg Capsule 150 mg PO TID Rx Instructions: 0100, 0900, 1700 oxycodone-acetaminophen 10-325 mg tablet 1 tablet PO TID Rx Instructions: 0100, 0900,1700 morphine 15 mg tablet extended release 15 mg PO TID oxycodone-acetaminophen 5-325 mg Tablet 1 tablet PO Q8HR Qty: 6 0RF polyethylene glycol 3350 [Miralax] 17 gram Powder In Packet 17 g PO QAM Qty: 14 0RF albuterol sulfate 90 mcg/actuation HFA aerosol inhaler 90 mcg INHALATION Q4H PRN (Reason: Shortness Of Breath) Calcium Citrate + D 630 mg PO BID Rx Instructions: 630mg/500IU One-A-Day Proactive 65 Plus 1 tablet PO BID Tylenol 650 mg tablet 650 mg PO TID furosemide 20 mg tablet 20 mg PO DAILY PRN (Reason: swelling) prednisone 20 mg Tablet 60 mg PO DAILY@0800 Qty: 1 0RF Rx Instructions: Take 04/09 levofloxacin 750 mg tablet 750 mg PO Q48H Qty: 2 0RF Rx Instructions: Please take 04/10 and 04/11 Other Ambulatory Orders: Basic Metabolic Panel (Routine) Timeframe: 3 Days Location: Determined by Patient Ordered By: Yesika Adrian Follow-up/Referrals: Ruben,Miguel Purdy MD [Primary Care Provider, Unknown]
[2025-06-07 17:43] LABS: Hematocrit 39.0 % (37.0-47.0); Hemoglobin 12.3 g/dL (12.0-15.0); Immature Granulocyte Percent A 0.4 % (0-0.5); Lymphocytes Absolute Auto 1.41 K/mm3 (0.9-3.2); Mean Corpuscular HGB Conc 31.5 g/dl (32-36); Mean Corpuscular Hemoglobin 33.2 pg (26-34); Mean Corpuscular Volume 105.4 fl (80-100); Nucleated Red Blood Cells Absolute Auto 0.000 K/mm3 (0.0-0.012); Nucleated Red Blood Cells Perc 0.0 % (0.0-0.2); Platelet Count Result 135 k/mm3 (150-375); Red Blood Count 3.70 M/mm3 (4.2-5.4); White Blood Count 5.6 K/mm3 (4.5-10.0)
[2025-06-07 17:58] LABS: Alanine Aminotransferase 16 U/L (6-35); Albumin Level 4.1 g/dL (3.5-5.1); Alkaline Phosphatase 105 U/L (38-126); Anion Gap 4 mmol/L (4-12); Aspartate Amino Transferase 25 U/L (14-36); Bilirubin,Total 0.5 mg/dL (0.2-1.3); Blood Urea Nitrogen 19 mg/dL (7-17); CRP 0.5 mg/dL (<1.0); Calcium 11.0 mg/dL (8.4-10.2); Carbon Dioxide 25 mmol/L (22-30); Chloride 108 mmol/L (98-107); Estimated Glomerular Filt Rate > 60; Glucose 115 mg/dL (65-110); Potassium 5.2 mmol/L (3.4-5.0); Sodium 137 mmol/L (137-145); Total Protein 6.5 g/dL (6.3-8.2)
[2025-06-07 18:03] LABS: NT Pro B Type Natriuretic Pept 224 pg/mL (19.9-100)
[2025-06-07 18:09] LABS: Schistocytes None Seen
[2025-06-07 18:10] LABS: Band Neutrophils Percent 0 % (0-6)
[2025-06-07 18:11] LABS: Hypochromasia 1+; Macrocytosis 1+ (NORMAL)
[2025-06-07 18:12] LABS: INR 1.0; Prothrombin Time 13.1 Seconds (11.1-14.7)
[2025-06-07 18:13] LABS: Partial Thromboplastin Time 24.4 Seconds (22.3-36.8)
[2025-06-07 18:58] VITALS: BP 140/60; PULSE 58; RESP 20; TEMP 36.6; O2SAT 95
[2025-06-07] MEDS: DOXYCYCLINE HYCLATE 100 MG TABLET PO (20:58)
[2025-06-07 21:05] VITALS: BP 148/72; PULSE 71; RESP 18; TEMP 36.4; O2SAT 100
== END 2025-06-07 21:07 | disposition home or self-care (01) ==
PROVIDERS: Emergency Provider Physician Assistant; PCP Internal Medicine
DX: E87.5 Hyperkalemia (principal); L03.116 Cellulitis of left lower limb; F41.9 Anxiety disorder, unspecified; M19.90 Unspecified osteoarthritis, unspecified site; F31.9 Bipolar disorder, unspecified; I10 Essential (primary) hypertension; E78.5 Hyperlipidemia, unspecified; E03.9 Hypothyroidism, unspecified; E11.9 Type 2 diabetes mellitus without complications; R06.02 Shortness of breath
CPT/HCPCS: 36415; 80053; 83880; 85025; 85610; 85652; 85730; 86140; 93971; 99284; A9270